=== PATIENT | male | born 1930 | race Caucasian/White ===

== ENCOUNTER → 2016-04-21 | Outpatient (CLI) | payer OTHER ==
[~2016-04-21] MED LIST: ASPI81TA28 PO; CARB25TA12 PO; CHOL100010 PO; CHOL2000 PO; CYAN10005 PO; FOLI1TAB7 PO; GLUCTAB7 PO; LOSA1TAB PO; NITR0.4S UT; OMEP20TA PO; ONDA4TAB10 SL; SIMV80TA2 PO; VENL100T2 PO; VENL150T33 PO
[2016-04-21 17:57] LABS: ALT/SGPT 9 U/L (12-78); BLOOD UREA NITROGEN 28 mg/dl (7-18); BUN/CREATININE RATIO 25.3 (10-20); CALCIUM 8.6 mg/dl (8.5-10.1); CARBON DIOXIDE 29 mmol/L (21-32); CHLORIDE 103 mmol/L (98-107); CHOLESTEROL 137 mg/dl (0-200); GLUCOSE 97 mg/dl (70-99); POTASSIUM 4.3 mmol/L (3.5-5.1); SODIUM 137 mmol/L (136-145)
[2016-04-21 18:00] LABS: ALB/GLOB RATIO 1.1 (0.9-2); ALKALINE PHOSPHATASE 55 U/L (45-117); AST/SGOT 21 U/L (15-37); CHOLESTEROL/HDL RATIO 3.6; HDL CHOLESTEROL 38 mg/dl; LDL CHOLESTEROL CALCULATED 67 mg/dl; TRIGLYCERIDES 158 mg/dl (0-150); VERY LOW DENSITY LIPOPROT CALC 32 mg/dl
== END | disposition home or self-care (01) ==
LOC: C.LABPVFM 07:40
PROVIDERS: ATTEND Family Medicine
DX: E78.5 Hyperlipidemia, unspecified (principal)

== ENCOUNTER 2016-05-19 10:57 | Emergency (ER) | payer OTHER ==
[~2016-05-19] VITALS: Ht 182.9 cm; Wt 90.5 kg
[~2016-05-19 10:57] MED LIST changes: -CHOL2000 PO; -FOLI1TAB7 PO; -GLUCTAB7 PO; -ONDA4TAB10 SL; -VENL150T33 PO
[2016-05-19 11:00] VITALS: TEMP 37.8; Ht 182.9 cm; Wt 90.5 kg
[2016-05-19 11:05] VITALS: O2SAT 96
[2016-05-19] MEDS ORDERED: VENL150T33 PO (11:36)
[2016-05-19] MEDS ORDERED: CHOL2000 PO (11:36)
[2016-05-19] MEDS ORDERED: GLUCTAB7 PO (11:36)
[2016-05-19] MEDS ORDERED: FOLI1TAB7 PO (11:36)
[2016-05-19 12:01] LABS: BASO % 0.1 %; BASO ABS # 0.01 K/uL (0-0.2); COMPLETE YES; EOS % 0.2 %; IG% 0.1 %; MEAN CELL VOLUME 93.2 fL (80-100); MEAN CORPUSCULAR HEMOGLOBIN 30.7 pg (25-34); MEAN CORPUSCULAR HGB CONC 32.9 g/dl (32-36); MEAN PLATELET VOLUME 11.5 fL (7.4-10.4); MONO % 10.6 %; PLATELET COUNT 144 K/uL (130-400); WHITE BLOOD COUNT 9.94 K/uL (4.8-10.8)
[2016-05-19 12:19] LABS: BUN/CREATININE RATIO 21.2 (10-20); CALCIUM 8.7 mg/dl (8.5-10.1); CREATININE 1.3 mg/dl (0.60-1.40); POTASSIUM 3.9 mmol/L (3.5-5.1)
[2016-05-19 12:22] LABS: ALB/GLOB RATIO 1.1 (0.9-2)
[2016-05-19] MEDS ORDERED: SODIUM CHLORIDE 0.9% 1000ML 1,000 ML IV STA (13:31)
[2016-05-19] MEDS ORDERED: ACETAMINOPHEN 500 MG TAB PO STA (13:31)
[2016-05-19] MEDS ORDERED: CARBIDOPA/LEVODOPA 25/100MG TAB PO STA ×2 (13:38→13:40)
[2016-05-19] MEDS ORDERED: ONDANSETRON INJ 2 MG/ML 2 ML VIAL IV STA (13:38)
--- NOTE | 2016-05-19 13:38 | EMERGENCY ROOM VISIT NOTE ---
History Report prepared by [facility]: Marily Marlow Under the Supervision of: Dr. Alfie Arriaza M.D. First contact with patient: 13:00 Chief Complaint: WEAKNESS Stated Complaint: DIZZY Nursing Triage Summary: Decreased mobility History of Present Illness The patient is an 85 year old male who presents to the Emergency Room with complaints of persistent weakness that began yesterday. The patient states that yesterday and this morning he started feeling ill. He notes that he has been nauseated and additionally notes a fever and chills. The patient denies any cough, diarrhea, or runny nose. He notes that today he feels fatigued and has a headache. The patient denies any history of UTIs. The patient's son notes that the patient has a history of Parkinson's Disease, noting that the patient did not take his medication last night or this morning. He states that he has not been able to move his legs today. Source of History: patient, family (son) Onset: yesterday Position: other (global) Quality: other (weakness) Timing: other (persistent) Associated Symptoms: + chills, + fatigue, + fevers, + headache, + nausea, No cough, No diarrhea Review of Systems See HPI for pertinent positives & negatives. A total of 10 systems reviewed and were otherwise negative. Past Medical & Surgical Medical Problems: (1) Angina (2) Hodgson syndrome (3) Hyperlipidemia (4) Parkinsonism Surgical Problems: (1) History of prostate surgery (2) S/P tonsillectomy Family History Heart disease Hypertension Social History Smoking Status: Former Smoker Alcohol Use: occasionally Marital Status: Housing Status: lives alone Occupation Status: retired Current/Historical Medications Scheduled Aspirin (Aspirin Ec), 81 MG PO DAILY Carbidopa/Levodopa (Sinemet 25MG/100MG), 2 TAB PO TID Cholecalciferol (Vitamin D3), 2,000 UNITS PO DAILY Cyanocobalamin (Vitamin B-12), 1,000 MCG PO DAILY Folic Acid (Folvite), 1 MG PO DAILY Klvgzkdtuyi-Jtsepxqfrqq-Upd C- (Glucosamine Chondroitin), 1 TAB PO DAILY Nitroglycerin (Nitrostat), 0.4 MG UT PRN Omeprazole (Omeprazole), 20 MG PO DAILY Ondasetron Odt (Zofran Odt), 4 MG SL Q6H Simvastatin (Zocor), 40 MG PO QPM Venlafaxine Hcl (Venlafaxine Hcl Er), 150 MG PO DAILY Allergies Coded Allergies: Penicillins (Verified Adverse Reaction, Mild, "STRANGE REACTION", 06/24/15) Physical Exam Vital Signs Date Time Temp Pulse Resp B/P Pulse Ox O2 Delivery O2 Flow Rate FiO2 05/19/16 15:06 101 18 128/74 98 05/19/16 14:05 84 05/19/16 13:50 76 20 92 Room Air 05/19/16 13:44 78 20 170/95 97 Room Air 05/19/16 12:40 80 20 161/91 95 Room Air 05/19/16 11:19 77 05/19/16 11:05 96 Room Air 05/19/16 11:00 37.8 88 20 152/87 98 Room Air Physical Exam GENERAL: Patient is a healthy-appearing well-nourished HEAD: Normocephalic atraumatic EYES: Ocular movements intact pupils equal and react to light OROPHARYNX mucous membranes are moist no exudates present no erythema or edema present NECK: Supple no nuchal rigidity CHEST: Good equal expansion LUNGS: Clear and equal to auscultation CARDIAC: Grade 2/6 systolic murmur. ABDOMEN: Soft nontender no guarding BACK: No CVA tenderness EXTREMITIES: No pain upon palpation normal muscle strength in all groups no clubbing cyanosis or edema NEURO: Patient is following commands is answering questions appropriately. Alert and oriented x3 Cranial Nerves 2-12 grossly intact Medical Decision & Procedures ER Provider Diagnostic Interpretation: Radiology results as stated below per my review and radiologist interpretation: CT OF THE HEAD WITHOUT CONTRAST CLINICAL HISTORY: Altered mental status. Dizziness. COMPARISON STUDY: MRI of the brain December 12, [address] January 05, 2016. CT DOSE: 614.27 mGy.cm TECHNIQUE: Helical axial images of the head were obtained without IV contrast. Automated exposure control was utilized for the study. FINDINGS: No acute intracranial hemorrhage, midline shift or mass effect is present. Mild ventricular dilatation is unchanged. White matter hypodensities are unchanged. There are no findings to suggest acute dural sinus thrombosis or acute territorial infarct. No acute intracranial hemorrhage, midline shift or mass effect is present. There are no significant calvarial abnormalities. There is mild mucosal thickening of the ethmoid sinuses. Mastoid air cells are clear. IMPRESSION: No acute intracranial findings. Electronically signed by: Myron Fraga M.D. 05/19/2016 2:48 PM Dictated Date/Time: 05/19/2016 2:46 PM SINGLE VIEW CHEST CLINICAL HISTORY: Generalized weakness. Dizziness. FINDINGS: 2 AP, portable, upright chest radiographs are compared to study dated 06/24/2015. The examination is degraded by portable technique and patient rotation. The heart is mildly enlarged and there is evidence carotid calcification of the thoracic area. There is mild pulmonary vascular congestion. Chronic interstitial thickening is unchanged. There is mild elevation of the right hemidiaphragm. No focal airspace consolidation or large pleural effusion is identified. No pneumothorax is seen. The skeletal structures are osteopenic. Degenerative change is noted in the thoracic spine and shoulders. IMPRESSION: 1. Cardiomegaly with mild pulmonary vascular congestion. 2. No airspace consolidation or large pleural effusion is identified. Electronically signed by: Raghavendra Fernandez M.D. 05/19/2016 2:20 PM Dictated Date/Time: 05/19/2016 2:18 PM The status of this report is Signed. Draft = Not yet reviewed or approved by Radiologist. Signed = Reviewed and approved by Radiologist. Laboratory Results 05/19/16 10:25 Red Blood Count 4.40, Mean Corpuscular Volume 93.2, Mean Corpuscular Hemoglobin 30.7, Mean Corpuscular Hemoglobin Concent 32.9, Mean Platelet Volume 11.5, Neutrophils (%) (Auto) 84.0, Lymphocytes (%) (Auto) 5.0, Monocytes (%) (Auto) 10.6, Eosinophils (%) (Auto) 0.2, Basophils (%) (Auto) 0.1, Neutrophils # (Auto ) 8.35, Lymphocytes # (Auto) 0.50, Monocytes # (Auto) 1.05, Eosinophils # (Auto ) 0.02, Basophils # (Auto) 0.01 05/19/16 10:25 Test 05/19/16 10:25 05/19/16 14:25 05/19/16 15:15 White Blood Count 9.94 K/uL (4.8-10.8) Red Blood Count 4.40 M/uL (4.7-6.1) Hemoglobin 13.5 g/dL (14.0-18.0) Hematocrit 41.0 % (42-52) Mean Corpuscular Volume 93.2 fL (80-100) Mean Corpuscular Hemoglobin 30.7 pg (25-34) Mean Corpuscular Hemoglobin Concent 32.9 g/dl (32-36) Platelet Count 144 K/uL (130-400) Mean Platelet Volume 11.5 fL (7.4-10.4) Neutrophils (%) (Auto) 84.0 % Lymphocytes (%) (Auto) 5.0 % Monocytes (%) (Auto) 10.6 % Eosinophils (%) (Auto) 0.2 % Basophils (%) (Auto) 0.1 % Neutrophils # (Auto) 8.35 K/uL (1.4-6.5) Lymphocytes # (Auto) 0.50 K/uL (1.2-3.4) Monocytes # (Auto) 1.05 K/uL (0.11-0.59) Eosinophils # (Auto) 0.02 K/uL (0-0.5) Basophils # (Auto) 0.01 K/uL (0-0.2) RDW Standard Deviation 48.9 fL (36.4-46.3) RDW Coefficient of Variation 14.5 % (11.5-14.5) Immature Granulocyte % (Auto) 0.1 % Immature Granulocyte # (Auto) 0.01 K/uL (0.00-0.02) Anion Gap 7.0 mmol/L (3-11) Est Creatinine Clear Calc Drug Dose 46.4 ml/min Estimated GFR () 58.1 Estimated GFR (Non- 50.1 BUN/Creatinine Ratio 21.2 (10-20) Calcium Level 8.7 mg/dl (8.5-10.1) Total Bilirubin 0.5 mg/dl (0.2-1) Aspartate Amino Transf (AST/SGOT) 20 U/L (15-37) Alanine Aminotransferase (ALT/SGPT) 23 U/L (12-78) Alkaline Phosphatase 58 U/L (45-117) Total Protein 7.3 gm/dl (6.4-8.2) Albumin 3.8 gm/dl (3.4-5.0) Globulin 3.5 gm/dl (2.5-4.0) Albumin/Globulin Ratio 1.1 (0.9-2) Urine Color YELLOW Urine Appearance CLEAR (CLEAR) Urine pH 5.0 (4.5-7.5) Urine Specific [place] 1.017 (1.000-1.030) Urine Protein 1+ (NEG) Urine Glucose (UA) NEG (NEG) Urine Ketones NEG (NEG) Urine Occult Blood NEG (NEG) Urine Nitrite NEG (NEG) Urine Bilirubin NEG (NEG) Urine Urobilinogen NEG (NEG) Urine Leukocyte Esterase NEG (NEG) Urine WBC (Auto) 1-5 /hpf (0-5) Urine RBC (Auto) 0-4 /hpf (0-4) Urine Hyaline Casts (Auto) 1-5 /lpf (0-5) Urine Epithelial Cells (Auto) 5-10 /lpf (0-5) Urine Bacteria (Auto) NEG (NEG) Influenza Type A Antigen Neg for Influ A (NEG) Influenza Type B Antigen Neg for Influ B (NEG) Labs reviewed by ED physician. Medications Administered Medications (Trade) Dose Ordered Sig/Petty Route Start Time Stop Time Status Last Admin Dose Admin Sodium Chloride (Nss 1000ml) 1,000 ml @ 999 mls/hr Q1H1M STAT IV 05/19/16 13:31 05/19/16 14:31 DC 05/19/16 13:31 999 MLS/HR Acetaminophen (Tylenol Tab) 1,000 mg NOW STAT PO 05/19/16 13:31 05/19/16 13:33 DC 05/19/16 13:40 1,000 MG Albuterol/ Ipratropium (Duoneb) 12 ml ONE ONCE INH 05/19/16 13:45 05/19/16 13:46 DC 05/19/16 13:54 12 ML Ondansetron HCl (Zofran Inj) 4 mg NOW STAT IV 05/19/16 13:38 05/19/16 13:39 DC 05/19/16 13:42 4 MG Carbidopa/Levodopa (Sinemet 25/ 100MG Tab) 2 tab NOW STAT PO 05/19/16 13:40 05/19/16 13:42 DC 05/19/16 13:40 2 TAB Methylprednisolone Sodium Succinate (Solu-Medrol IV) 60 mg NOW STAT IV 05/19/16 14:27 05/19/16 14:28 DC 05/19/16 15:14 60 MG ECG Indication: weakness Rate (beats per minute): 106 Rhythm: sinus tachycardia Findings: ST depression (Anterolateral, diffuse), no acute ischemic change, no ectopy ED Course 1331: Ordered Tylenol Tab 1000 mg PO, Sodium Chloride 1000 ml @ 999 mls/hr IV. 1333: Past medical records reviewed. The patient was evaluated in room B10. A complete history and physical examination was performed. 1338: Ordered Zofran Inj 4 mg IV. 1340: Ordered Carbidopa/Levodopa 2 tab PO. 1345: Ordered Duoneb 12 ml INH. 1427: Ordered Solu-Medrol IV 60 mg IV. 1610: I reevaluated the patient and he is up and ambulating. I discussed the exam findings with him and his father and I discussed the treatment plan. They verbalized complete understanding and agreement. The patient is ready to go home. 1613: Ordered Albuterol 2 puffs INH. Medical Decision Differential diagnosis: Etiologies such as metabolic, infection, hypo/hyperglycemia, electrolyte abnormalities, cardiac sources, intracerebral event, toxicologic, neurologic, as well as others were entertained. This is an 85-year-old male who presents emergency department complaining of generalized weakness. Patient did not take his carbidopa levodopa and has missed multiple doses since last evening. He did not take because he was feeling nauseous. He has normal laboratory work here and has a clear chest x- ray. Serial abdominal examinations were performed on the patient in the emergency department and no tended patient exhibit surgical abdomen or even abdominal tenderness. The patient was given normal saline bolus along with Zofran and Tylenol. He was then given his carbidopa levodopa. He was then ambulated by both nursing as well as myself. The patient at this point wishes to go home. I did recommend an inhaler for home as his pulse ox was 91%. I will note that that is not low enough for admission. He is much improved after breathing treatment and I will continue him on albuterol at home. I also recommended Tylenol and Zofran. Patient and son were in agreement with the treatment plan. Impression Primary Impression: Weakness Scribe Attestation The scribe's documentation has been prepared under my direction and personally reviewed by me in its entirety. I confirm that the note above accurately reflects all work, treatment, procedures, and medical decision making performed by me. Departure Information Dispostion Home / Self-Care Prescriptions Ondasetron Odt (ZOFRAN ODT) 4 Mg Tab 4 MG SL Q6H for Nausea, #6 TAB Prov: Alfie Arriaza MD 05/19/16 Referrals No Doctor, Assigned (PCP) Forms HOME CARE DOCUMENTATION FORM, IMPORTANT VISIT INFORMATION, School Instructions, Work Instructions Patient Instructions ED Fever Control, ED Fever Unconf Cause, [facility] Additional Instructions Use inhaler twice every 6 hours Tylenol 1000 mg for fever You have been examined and treated today on an emergency basis only. This is not a substitute for, or an effort to provide, complete comprehensive medical care. It is impossible to recognize and treat all injuries or illnesses in a single emergency department visit. It is therefore important that you follow up closely with your PCP. Call as soon as possible for an appointment. Thank you for your time and consideration. I look forward to speaking with you again soon. Please don't hesitate to call us if you have any questions.
[2016-05-19] MEDS ORDERED: ALBUT/IPRATROP 3MG/0.5MG NEB 3 ML VIAL INH ONE (13:45)
[2016-05-19 13:50] VITALS: PULSE 76; O2SAT 92
--- NOTE | 2016-05-19 14:21 | DIAGNOSTIC IMAGING REPORT ---
SINGLE VIEW CHEST CLINICAL HISTORY: Generalized weakness. Dizziness. FINDINGS: 2 AP, portable, upright chest radiographs are compared to study dated 06/24/2015. The examination is degraded by portable technique and patient rotation. The heart is mildly enlarged and there is evidence carotid calcification of the thoracic area. There is mild pulmonary vascular congestion. Chronic interstitial thickening is unchanged. There is mild elevation of the right hemidiaphragm. No focal airspace consolidation or large pleural effusion is identified. No pneumothorax is seen. The skeletal structures are osteopenic. Degenerative change is noted in the thoracic spine and shoulders. IMPRESSION: 1. Cardiomegaly with mild pulmonary vascular congestion. 2. No airspace consolidation or large pleural effusion is identified. Electronically signed by: Raghavendra Fernandez M.D. 05/19/2016 2:20 PM Dictated Date/Time: 05/19/2016 2:18 PM
[2016-05-19] MEDS ORDERED: METHYLPREDNISOLONE 125 MG VIAL IV STA (14:27)
--- NOTE | 2016-05-19 14:50 | DIAGNOSTIC IMAGING REPORT ---
CT OF THE HEAD WITHOUT CONTRAST CLINICAL HISTORY: Altered mental status. Dizziness. COMPARISON STUDY: MRI of the brain December 12, [address] January 05, 2016. CT DOSE: 614.27 mGy.cm TECHNIQUE: Helical axial images of the head were obtained without IV contrast. Automated exposure control was utilized for the study. FINDINGS: No acute intracranial hemorrhage, midline shift or mass effect is present. Mild ventricular dilatation is unchanged. White matter hypodensities are unchanged. There are no findings to suggest acute dural sinus thrombosis or acute territorial infarct. No acute intracranial hemorrhage, midline shift or mass effect is present. There are no significant calvarial abnormalities. There is mild mucosal thickening of the ethmoid sinuses. Mastoid air cells are clear. IMPRESSION: No acute intracranial findings. Electronically signed by: Myron Fraga M.D. 05/19/2016 2:48 PM Dictated Date/Time: 05/19/2016 2:46 PM
[2016-05-19 14:57] LABS: URINE APPEARANCE CLEAR (CLEAR); URINE BILIRUBIN NEG (NEG); URINE COLOR YELLOW; URINE NITRITE NEG (NEG); URINE SPECIFIC GRAVITY 1.017 (1.000-1.030); UROBILINOGEN NEG (NEG); ZZUR CULT IF INDIC CLEAN CATCH NO
[2016-05-19 14:59] LABS: MANUAL MICROSCOPIC REQUIRED? NO; REVIEW REQ? NO
[2016-05-19] MEDS ORDERED: ALBUTEROL HFA 8 GM INHALER INH STA (16:13)
[2016-05-19] MEDS ORDERED: ONDA4TAB10 SL (16:15)
[2016-05-19 16:45] VITALS: BP 102/65; PULSE 94; O2SAT 94
[2016-05-19 17:31] LABS: INFLUENZA A PCR Neg for Influ A (NEG); INFLUENZA B PCR Neg for Influ B (NEG)
== END 2016-05-19 16:45 | disposition home or self-care (01) ==
LOC: EDBD 10:57 → C.EDB 10:59
DX: R53.1 Weakness (principal); R00.0 Tachycardia, unspecified; E78.5 Hyperlipidemia, unspecified; G20 Parkinson's disease; Z98.890 Other specified postprocedural states; Z87.891 Personal history of nicotine dependence; Z79.82 Long term (current) use of aspirin; Z79.899 Other long term (current) drug therapy; Z88.0 Allergy status to penicillin; Z82.49 Family history of ischemic heart disease and other diseases of the circulatory system

== ENCOUNTER → 2016-06-27 | Outpatient (CLI) | payer OTHER ==
[~2016-06-27] MED LIST changes: -CHOL100010 PO; +CHOL2000 PO; +FOLI1TAB7 PO; +GLUCTAB7 PO; -LOSA1TAB PO; +ONDA4TAB10 SL; -VENL100T2 PO; +VENL150T33 PO
== END | disposition home or self-care (01) ==
LOC: C.LABPVFM 14:00
PROVIDERS: ATTEND Family Medicine
DX: R42 Dizziness and giddiness (principal)

== ENCOUNTER → 2016-11-10 | Outpatient (CLI) | payer OTHER ==
--- NOTE | 2016-11-10 12:01 | DIAGNOSTIC IMAGING REPORT ---
RIGHT KNEE 1 OR 2 VIEWS ROUTINE CLINICAL HISTORY: Right knee pain following injury. COMPARISON: None FINDINGS: Alignment of the right knee is anatomic. There is no acute fracture or osseous lesion. There is no joint effusion. Mild osteophytosis of the right knee is noted. There is extensive vascular calcification. IMPRESSION: 1. No acute fracture or joint effusion of the right knee. 2. Mild osteoarthritis of the right knee. 3. Extensive vascular calcification. Electronically signed by: Myron Fraga M.D. 11/10/2016 12:00 PM Dictated Date/Time: 11/10/2016 11:59 AM
== END | disposition home or self-care (01) ==
LOC: C.RADPV 11:37
PROVIDERS: ATTEND Family Medicine Adult Medicine
DX: S89.90XA Unspecified injury of unspecified lower leg, initial encounter (principal); X58.XXXA Exposure to other specified factors, initial encounter; M61.06 Myositis ossificans traumatica, lower leg

== ENCOUNTER → 2017-02-26 | Outpatient (CLI) | payer OTHER ==
[~2017-02-26] MED LIST changes: -FOLI1TAB7 PO; +FOLI1TAB8 PO; -ONDA4TAB10 SL
== END | disposition home or self-care (01) ==
LOC: C.PATHSPEC 17:20
PROVIDERS: ATTEND Plastic Surgery
DX: L98.9 Disorder of the skin and subcutaneous tissue, unspecified (principal)

== ENCOUNTER 2017-04-14 17:23 | Emergency (ER) | payer OTHER ==
[~2017-04-14] VITALS: Ht 182.9 cm; Wt 88.5 kg
[2017-04-14 17:33] VITALS: TEMP 36.3; Ht 182.9 cm; Wt 88.5 kg
[2017-04-14] MEDS ORDERED: LIDOCAINE/EPINEPH/TETRACAINE 1 EA SYR EXT STA (17:49)
[2017-04-14] MEDS ORDERED: LIDOCAINE/EPINEPH/TETRACAINE 1 EA SYR ONE (17:50)
--- NOTE | 2017-04-14 18:59 | DIAGNOSTIC IMAGING REPORT ---
CT SCAN OF THE BRAIN WITHOUT IV CONTRAST CLINICAL HISTORY: Fall with head injury. COMPARISON STUDY: CT of the brain dated 05/19/2016. TECHNIQUE: Unenhanced axial CT scan of the brain is performed from the vertex to the skull base. A dose lowering technique was utilized adhering to the principles of ALARA. CT DOSE: 1027.88 mGy.cm FINDINGS: Brain parenchyma: There are age-related involutional changes noting mild subcortical and periventricular microangiopathic change. There is no hemorrhage, mass effect, or evidence of acute territorial ischemia by CT criteria. 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 Jasso-white matter is preserved. No extra-axial fluid collection is seen. Ventricles, sulci, cisterns: Prominent secondary to involutional change. Intracranial vasculature: There is atherosclerotic calcification of the cavernous carotid and vertebral arteries. Calvarium: The skeletal structures are osteopenic. There is no depressed calvarial fracture. Soft tissues: There is a left frontal scalp hematoma. Sinuses and mastoids: The visualized paranasal sinuses are clear. The mastoid air cells are well pneumatized. Orbits: The bony orbits are grossly intact. There are bilateral ocular lens implants. IMPRESSION: 1. There is no hemorrhage, mass effect, or evidence of acute territorial ischemia by CT criteria. 2. Left frontal scalp hematoma. Electronically signed by: Raghavendra Fernandez M.D. 04/14/2017 6:58 PM Dictated Date/Time: 04/14/2017 6:55 PM
--- NOTE | 2017-04-14 19:03 | DIAGNOSTIC IMAGING REPORT ---
CT SCAN OF THE CERVICAL SPINE CLINICAL HISTORY: Fall. COMPARISON STUDY: CT scan of the cervical spine dated 08/29/2012. TECHNIQUE: CT scan of the cervical spine is performed from the skull base to the upper thoracic spine. Images are reviewed in the axial, sagittal, and coronal planes. IV contrast was not administered for this examination. A dose lowering technique was utilized adhering to the principles of ALARA. CT DOSE: Reported separately under the concurrently performed CT scan of the brain. FINDINGS: Skeletal structures: The skeletal structures are osteopenic. There is no evidence of fracture or subluxation involving the cervical spine. Vertebral body height is maintained. There is straightening of the cervical lordosis with reversal centered at C4. There is minimal anterolisthesis at C2-C3 and C3-C4. Alignment is otherwise preserved. Tiny anterior osteophytes are seen throughout. The odontoid process and lateral masses are intact. The atlantoaxial articulation is preserved noting mild productive degenerative change. The spinous processes appear intact. There is moderate multilevel cervical spondylosis. Uncovertebral and facet arthropathy contribute sterile foraminal narrowing at several levels. Intervertebral discs: There is moderate disc space narrowing at C5-C6 and C6-C7. Mild disc space narrowing is seen at the remaining cervical levels. Central canal: Posterior disc osteophyte complexes at C3-C4, C5-C6, and C6-C7 likely contribute to acquired compromise of the central canal. Soft tissues: The prevertebral and paraspinous soft tissues are within normal limits. There is atherosclerotic calcification of the carotid bulbs. Calvarium: The visualized calvarium at the skull base appears intact. Brain parenchyma: Partially visualized brain parenchyma the skull base is within normal limits noting age-related involutional change. Sinuses and mastoids: The visualized paranasal sinuses are clear. The mastoid air cells are well pneumatized. Lung apices: Clear as visualized. IMPRESSION: 1. There is no evidence of fracture or subluxation involving the cervical spine. 2. Osteopenia and spondylotic change as above. Electronically signed by: Raghavendra Fernandez M.D. 04/14/2017 7:02 PM Dictated Date/Time: 04/14/2017 6:55 PM
[2017-04-14] MEDS ORDERED: DIPHTHERIA/TETANUS/PERTUSSIS 0.5 ML SYR/VIAL IM. ONE (19:15)
--- NOTE | 2017-04-14 19:21 | EMERGENCY ROOM VISIT NOTE ---
History Report prepared by Scribjeremy: Rob[facility] Under the Supervision of: Dr. Alfie Weiner D.O. First contact with patient: 17:33 Chief Complaint: FALL Stated Complaint: FALL, HEAD INJURY History of Present Illness The patient is a 86 year old male who presents to the Emergency Room with complaints of a head injury s/p fall occurring just prior to arrival. The patient has a history of Parkinson's. He states that he went out to take a walk , and fell onto a hard surface. He states that he fell and struck the left side of his head. The patient states that his Parkinson's often causes him to feel like he is going downhill and is unable to stop, and he states that this is what happened to him today. He lost consciousness during the fall, but is unsure if he passed out prior to falling or after hitting the ground. The patient denies chest pain or neck pain. He states that he felt normal today prior to the fall. Source of History: patient Onset: Just prior to arrival Position: head (left side) Quality: other (head injury) Timing: other (episode) Associated Symptoms: + LOC, No neck pain, No chest pain Review of Systems See HPI for pertinent positives & negatives. A total of 10 systems reviewed and were otherwise negative. Past Medical & Surgical Medical Problems: (1) Angina (2) Hodgson syndrome (3) Hyperlipidemia (4) Parkinsonism Surgical Problems: (1) History of prostate surgery (2) S/P tonsillectomy Family History Heart disease Hypertension Social History Smoking Status: Former Smoker Alcohol Use: occasionally Marital Status: Housing Status: lives alone Occupation Status: retired Current/Historical Medications Scheduled Aspirin (Aspirin Ec), 81 MG PO DAILY Carbidopa/Levodopa (Sinemet 25MG/100MG), 2 TAB PO QID Cholecalciferol (Vitamin D3), 2,000 UNITS PO DAILY Cyanocobalamin (Vitamin B-12), 1,000 MCG PO DAILY Folic Acid (Folvite), 1 MG PO DAILY Nitroglycerin (Nitrostat), 0.4 MG UT PRN Omeprazole (Omeprazole), 20 MG PO DAILY Simvastatin (Zocor), 40 MG PO QPM Allergies Coded Allergies: Penicillins (Verified Adverse Reaction, Mild, "STRANGE REACTION", 04/14/17) Physical Exam Vital Signs Date Time Temp Pulse Resp B/P (MAP) Pulse Ox O2 Delivery O2 Flow Rate FiO2 04/14/17 17:33 36.3 69 18 192/113 92 Room Air Physical Exam CONSTITUTIONAL/VITAL SIGNS: Reviewed / noted above. GENERAL: Non-toxic in appearance. INTEGUMENTARY: Warm, dry, and [place]. HEAD: Normocephalic. 3 cm laceration to the left supraorbital area. No contamination. Minimal bleeding. EYES: without scleral icterus or trauma. ENT/OROPHARYNX: clear and moist. LYMPHADENOPATHY/NECK: Is supple without lymphadenopathy or meningismus. RESPIRATORY: Lungs clear and equal. CARDIOVASCULAR: Regular rate and rhythm. GI/ABDOMEN: Soft and nontender. No organomegaly or pulsatile mass. No rebound or guarding. Normal bowel sounds. EXTREMITIES: Warm and well perfused. BACK: No CVA tenderness. NEUROLOGICAL: Intact without focal deficits. PSYCHIATRIC: normal affect. MUSCULOSKELETAL: Normally developed with good muscle tone. Medical Decision & Procedures ER Provider Diagnostic Interpretation: Radiology results as stated below per my review and radiologist interpretation: CT SCAN OF THE BRAIN WITHOUT IV CONTRAST FINDINGS: Brain parenchyma: There are age-related involutional changes noting mild subcortical and periventricular microangiopathic change. There is no hemorrhage, mass effect, or evidence of acute territorial ischemia by CT criteria. 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 Jasso-white matter is preserved. No extra-axial fluid collection is seen. Ventricles, sulci, cisterns: Prominent secondary to involutional change. Intracranial vasculature: There is atherosclerotic calcification of the cavernous carotid and vertebral arteries. Calvarium: The skeletal structures are osteopenic. There is no depressed calvarial fracture. Soft tissues: There is a left frontal scalp hematoma. Sinuses and mastoids: The visualized paranasal sinuses are clear. The mastoid air cells are well pneumatized. Orbits: The bony orbits are grossly intact. There are bilateral ocular lens implants. IMPRESSION: 1. There is no hemorrhage, mass effect, or evidence of acute territorial ischemia by CT criteria. 2. Left frontal scalp hematoma. Electronically signed by: Raghavendra Fernandez M.D. CT SCAN OF THE CERVICAL SPINE FINDINGS: Skeletal structures: The skeletal structures are osteopenic. There is no evidence of fracture or subluxation involving the cervical spine. Vertebral body height is maintained. There is straightening of the cervical lordosis with reversal centered at C4. There is minimal anterolisthesis at C2-C3 and C3-C4. Alignment is otherwise preserved. Tiny anterior osteophytes are seen throughout. The odontoid process and lateral masses are intact. The atlantoaxial articulation is preserved noting mild productive degenerative change. The spinous processes appear intact. There is moderate multilevel cervical spondylosis. Uncovertebral and facet arthropathy contribute sterile foraminal narrowing at several levels. Intervertebral discs: There is moderate disc space narrowing at C5-C6 and C6-C7. Mild disc space narrowing is seen at the remaining cervical levels. Central canal: Posterior disc osteophyte complexes at C3-C4, C5-C6, and C6-C7 likely contribute to acquired compromise of the central canal. Soft tissues: The prevertebral and paraspinous soft tissues are within normal limits. There is atherosclerotic calcification of the carotid bulbs. Calvarium: The visualized calvarium at the skull base appears intact. Brain parenchyma: Partially visualized brain parenchyma the skull base is within normal limits noting age-related involutional change. Sinuses and mastoids: The visualized paranasal sinuses are clear. The mastoid air cells are well pneumatized. Lung apices: Clear as visualized. IMPRESSION: 1. There is no evidence of fracture or subluxation involving the cervical spine. 2. Osteopenia and spondylotic change as above. Electronically signed by: Raghavendra Fernandez M.D. 04/14/2017 7:02 PM Medications Administered Medications (Trade) Dose Ordered Sig/Petty Route Start Time Stop Time Status Last Admin Dose Admin Tetracaine/ Epinephrine/ Lidocaine (L.e.t. Gel 4%/ 1:100/0.5%) 1 ea NOW STAT EXT 04/14/17 17:49 04/14/17 17:51 DC 04/14/17 17:49 1 EA Procedure Laceration repair: Location: left supraorbital area Total length: 3 cm Complexity: simple Verbal consent was obtained after the risks and benefits were explained, including but not limited to bleeding, scarring, infection, pain, and bone/joint /nerve damage. At this time, the risks of the procedure are less than the risks of NOT performing the procedure. A time out was taken and the correct patient and site identified. The skin was prepped with betadine. The target area was anesthetized with L.E.T. Gel. Copious irrigation was performed using saline. The skin was re-prepped with betadine and a sterile field set. The wound was explored for foreign bodies and none found. Examination revealed no injury to deep structures such as tendons, bone, or significant blood vessels. Debridement was not performed. The wound edges were approximated using 3, 4-0 simple interrupted nylon sutures. Hemostasis and excellent approximation was achieved. Antibacterial ointment and a sterile dressing applied. Detailed wound care instructions and signs and symptoms of infection reviewed with the patient. No complications and the patient tolerated the procedure well. ED Course 1742: Previous medical records were reviewed. The patient was evaluated in room C9. A complete history and physical examination was performed. 1748: Ordered L.E.T. Gel 4%/1:100/0.5% EXT. 1850: I conducted the laceration repair. See the procedure note for details. 1911: On reevaluation, the patient is resting comfortably. I discussed the results and findings with the patient. He verbalized agreement of the treatment plan. The patient was discharged home. Medical Decision Differential includes close head injury, intracranial bleed, facial trauma, cervical spine trauma, chest and thoracic trauma, abdominal and intra-abdominal trauma, spine neurologic trauma, extremity trauma. This is an 86-year-old male who presents to the ED with a chief complaint of a fall and laceration of the face. The patient states that he has a history of Parkinson's disease. He was out walking in the nice weather and started feeling as though he was going downhill. He states that this happens on occasion with his Parkinson's. He began walking quickly and then lost his balance and fell forward onto his face. Denies other injuries. He was able to get up after this. He came to the hospital for evaluation. He does have a laceration above the left eye region. Denies loss of consciousness. Exam reveals a 3 cm laceration in the left supraorbital area with no contamination and minimal bleeding. There is also a 1 cm laceration over the bridge of the nose and some abrasions to the left maxillary region. His tetanus is not up-to- date. He was given a tetanus here today. The laceration was repaired. A small amount of Dermabond was applied over the nasal laceration for approximation. CT scan of the brain and cervical spine did not show acute intracranial or bony injury. The patient was told the results. He is felt to be stable for discharge. Medication Reconcilliation Current Medication List: was personally reviewed by me Blood Pressure Screening Patient's blood pressure: Elevated blood pressure Blood pressure disposition: Referred to PCP Impression Primary Impression: Fall Additional Impression: Face lacerations Scribe Attestation The scribe's documentation has been prepared under my direction and personally reviewed by me in its entirety. I confirm that the note above accurately reflects all work, treatment, procedures, and medical decision making performed by me. Departure Information Dispostion Home / Self-Care Referrals No Doctor, Assigned (PCP) Patient Instructions My [facility] Additional Instructions Have sutures removed in 10 days here or at your doctors office. Return for any concerns. Watch for infection. Problem Qualifiers
[2017-04-14 20:17] VITALS: BP 179/89; PULSE 68; O2SAT 93
== END 2017-04-14 20:19 | disposition home or self-care (01) ==
LOC: EDBD 17:23 → C.EDC 17:28
DX: S01.81XA Laceration without foreign body of other part of head, initial encounter (principal); W01.10XA Fall on same level from slipping, tripping and stumbling with subsequent striking against unspecified object, initial encounter; G20 Parkinson's disease; E78.5 Hyperlipidemia, unspecified; K22.70 Barrett's esophagus without dysplasia; Z82.49 Family history of ischemic heart disease and other diseases of the circulatory system; Z87.891 Personal history of nicotine dependence; Z79.82 Long term (current) use of aspirin; Z79.899 Other long term (current) drug therapy; Z88.0 Allergy status to penicillin; Z23 Encounter for immunization

== ENCOUNTER → 2017-09-09 | Outpatient (CLI) | payer OTHER ==
[~2017-09-09] MED LIST changes: -GLUCTAB7 PO; -VENL150T33 PO
[2017-09-09 12:51] LABS: BASO % 0.4 %; BASO ABS # 0.04 K/uL (0-0.2); EOS % 2.9 %; EOS ABS # 0.27 K/uL (0-0.5); HEMATOCRIT 39.8 % (42-52); HEMOGLOBIN 13.2 g/dL (14.0-18.0); IG# 0.02 K/uL (0.00-0.02); LYMPH % 15.6 %; LYMPH ABS # 1.45 K/uL (1.2-3.4); MEAN CELL VOLUME 93.2 fL (80-100); MEAN CORPUSCULAR HEMOGLOBIN 30.9 pg (25-34); MEAN CORPUSCULAR HGB CONC 33.2 g/dl (32-36); MEAN PLATELET VOLUME 10.8 fL (7.4-10.4); MONO % 8.9 %; MONO ABS # 0.83 K/uL (0.11-0.59); NEUT ABS # 6.69 K/uL (1.4-6.5); PLATELET COUNT 188 K/uL (130-400); RED CELL DISTRIBUTION WIDTH CV 13.9 % (11.5-14.5); RED CELL DISTRIBUTION WIDTH SD 47.3 fL (36.4-46.3)
[2017-09-09 13:21] LABS: ALBUMIN 3.7 gm/dl (3.4-5.0); ALKALINE PHOSPHATASE 56 U/L (45-117); ALT/SGPT 9 U/L (12-78); AST/SGOT 14 U/L (15-37); BLOOD UREA NITROGEN 26 mg/dl (7-18); CALCIUM 8.3 mg/dl (8.5-10.1); CARBON DIOXIDE 26 mmol/L (21-32); CHOLESTEROL 132 mg/dl (0-200); GLUCOSE 96 mg/dl (70-99); LDL CHOLESTEROL CALCULATED 63 mg/dl; POTASSIUM 3.9 mmol/L (3.5-5.1); SODIUM 139 mmol/L (136-145); TOTAL PROTEIN 6.9 gm/dl (6.4-8.2)
== END | disposition home or self-care (01) ==
LOC: C.LABPVFM 09:26
PROVIDERS: ATTEND Family Medicine
DX: E78.5 Hyperlipidemia, unspecified (principal); I10 Essential (primary) hypertension; D63.8 Anemia in other chronic diseases classified elsewhere; R32 Unspecified urinary incontinence

== ENCOUNTER → 2017-09-10 | Outpatient (CLI) | payer OTHER ==
--- NOTE | 2017-09-10 16:26 | DIAGNOSTIC IMAGING REPORT ---
L FOOT MIN 3 VIEWS ROUTINE CLINICAL HISTORY: G20 pain COMPARISON: None. DISCUSSION: Generalized degenerative change throughout the osseous structures of the ankle as well as foot. This is most significant at the first metatarsophalangeal joint. No evidence for fracture or dislocation. No abnormal depressed reaction. There is no evidence for soft tissue swelling. IMPRESSION: 1. Generalized degenerative change. 2. This is most significant at the first metatarsophalangeal joint. 3. No acute posttraumatic abnormality. The above report was generated using voice recognition software. It may contain grammatical, syntax or spelling errors. Electronically signed by: J Carlos Wall M.D. 09/10/2017 4:25 PM Dictated Date/Time: 09/10/2017 4:24 PM
== END | disposition home or self-care (01) ==
LOC: C.RADPV 16:05
PROVIDERS: ATTEND Family Medicine
DX: G20 Parkinson's disease (principal)

== ENCOUNTER 2019-07-19 17:35 | Inpatient (IN) ==
[2019-07-19] MEDS ORDERED: SODIUM CHLORIDE 0.9% 1000ML 1,000 ML IV SCH (18:15)
[2019-07-19 18:28] LABS: Basophils # (auto) 0.02 K/uL (0-0.2); Basophils % (auto) 0.2 %; Hematocrit (blood only) 40.2 % (42-52); Hemoglobin 13.2 g/dL (14.0-18.0); Immature Granulocytes # (auto) 0.01 K/uL (0.00-0.02); Immature Granulocytes % (auto) 0.1 %; Lymphocytes # (auto) 0.65 K/uL (1.2-3.4); Lymphocytes % (auto) 7.4 %; Mean Corpuscular Hemoglobin 30.3 pg (25-34); Mean Corpuscular Hgb Conc 32.8 g/dL (32-36); Mean Corpuscular Volume 92.4 fL (80-100); Mean Platelet Volume 10.1 fL (7.4-10.4); Monocytes # (auto) 1.57 K/uL (0.11-0.59); Monocytes % (auto) 17.9 %; Neutrophils # (auto) 6.54 K/uL (1.4-6.5); Neutrophils % (auto) 74.4 %; Platelet Count 164 K/uL (130-400); RDW Coefficient of Variation 14.9 % (11.5-14.5); RDW Standard Deviation 50.4 fL (36.4-46.3); Red Blood Count 4.35 M/uL (4.7-6.1); White Blood Count 8.79 K/uL (4.8-10.8)
--- NOTE | 2019-07-19 18:34 | XRay Report ---
XR chest 1V portable HISTORY: Atypical Chest Pain COMPARISON: Chest 01/12/2019. FINDINGS: No pneumothorax. No pleural effusions. The cardiac silhouette remains top normal in size. T here are patchy hazy densities within the lung bases, left greater than right. The upper lung zones r emain clear. No evidence for pulmonary edema. IMPRESSION: Patchy hazy density within the lung bases, left greater than right. This may represent a pneumonia an d could be secondary to a viral process. ACT 112: Negative or not required by law. Electronically signed by: Musa Meléndez M.D. 07/19/2019 6:33 PM
--- NOTE | 2019-07-19 18:35 | Emergency Department Note ---
History of Present Illness General Chief complaint: Illness Stated complaint: UTI - LOST MOBILITY - WEAKNESS - LOST OF APPETITE Time Seen by Provider: 07/19/19 18:01 Source: patient Mode of arrival: wheelchair Limitations: no limitations History of Present Illness Provider complaint: Generalized weakness This is an 88-year-old male who presents to the ED with a chief complaint of generalized weakness since Thursday. He has a history of Parkinson's disease as well as urinary tract infections. The family was worried about UTI. He is also had a decreased appetite with decreased p.o. intake. He is normally ambulatory but has not been ambulatory since Thursday according to the son, who takes care of him. The patient denies any chest pains or shortness of breath. He denies any abdominal pains, palpitations or fevers or recent illness. No headaches. Symptoms are moderate. Home Medications Home Medications Medication Instructions Recorded Confirmed Type aspirin 81 mg tablet,delayed 81 mg PO DAILY@1300 tab 08/09/18 07/19/19 History release cyanocobalamin (vitamin B-12) 1,000 mcg PO DAILY@1300 #30 tab 08/09/18 07/19/19 History 1,000 mcg tablet folic acid 1 mg tablet 1 mg PO DAILY@1300 #30 tab 08/09/18 07/19/19 History nitroglycerin 0.4 mg sublingual 0.4 mg SL Q5M PRN tab 12/31/18 07/19/19 History tablet cholecalciferol (vitamin D3) 25 1,000 units PO DAILY@1300 01/04/19 07/19/19 History mcg (1,000 unit) capsule donepezil 5 mg tablet 5 mg PO QAM 30 Days #30 tab 02/28/19 07/19/19 Rx venlafaxine 150 mg 150 mg PO DAILY@1300 #90 cap 04/13/19 07/19/19 Rx capsule,extended release 24 hr hydrochlorothiazide 12.5 mg tablet 12.5 mg PO QAM #30 tab 04/28/19 07/19/19 Rx carbidopa 25 mg-levodopa 100 mg 2 tab PO QID 30 Days #240 tab 06/07/19 07/19/19 Rx tablet trospium 60 mg capsule,extended 60 mg PO DAILY #90 cap 06/28/19 07/19/19 Rx release 24 hr polyethylene glycol 3350 17 17 gm PO DAILY PRN #119 gm 05/20/20 05/26/20 Rx gram/dose oral powder ciprofloxacin HCl 500 mg tablet 500 mg PO BID #14 tab 07/19/19 07/19/19 Rx omeprazole 20 mg PO DAILY 07/19/19 07/19/19 History Allergies Allergy/AdvReac Type Severity Reaction Status Date / Time Penicillins AdvReac Mild "STRANGE Verified 07/19/19 19:31 REACTION" Past Med/Surg History Medical History Abnormal EKG (Acute) Allergic rhinitis (Acute) Anemia (Acute) Anemia of chronic disease (Acute) Angina (Chronic 08/29/12) Arteriosclerosis of coronary artery (Acute) Hodgson's esophagus (Acute) Constipation (Chronic) Constipation (Acute) Depression (Acute) Dizziness, nonspecific (Acute) Elevated serum homocysteine level (Acute) Encounter for long-term (current) use of medications (Acute) Episodic mood disorder (Acute) Fall (Acute) Festinating gait (Acute) Foot drop, right (Acute) Foot pain, left (Acute) Gait disturbance (Acute) Gastroesophageal reflux disease (Acute) H/O hydrocele Hammer toe (Acute) Hearing loss (Acute) Hyperkeratosis (Acute) Hyperlipidemia (Acute 08/29/12) Hyperlipidemia (Chronic) Hypertension (Chronic) Incontinence (Acute) Insomnia (Acute) Lumbar spondylosis (Acute) Malignant neoplasm of prostate (Chronic) Memory loss (Acute) Mitral insufficiency (Acute) Muscle weakness (generalized) (Acute) Neoplasm of uncertain behavior of skin (Acute) Orthostatic hypotension (Acute) Orthostatic hypotension (Acute) Parkinsonism (Chronic 08/29/12) Parkinsons disease (Chronic) Pre-ulcerative calluses (Acute) Severe recurrent depression with psychosis (Acute) Tremor (Acute) Urinary incontinence (Chronic) Urinary symptom or sign (Acute) Urinary urgency (Acute) 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) Vitamin D deficiency (Chronic) Weakness generalized (Acute) Surgical History H/O colonoscopy with polypectomy H/O prostatectomy History of tonsillectomy S/P repair of hydrocele Family History Grandmother (Paternal) Colorectal cancer Uncle Colorectal cancer Father Congestive heart failure Cardiac disorder Hypertension Myocardial infarction Denies family history of Ovarian cancer Prostate cancer Breast cancer Social History Preferred Language: [place] marital status: / current occupational status: retired Feels Safe at Home: Yes Smoking Status: Former smoker Hx Alcohol Use: Yes Alcohol Intake Frequency: Holidays/Special Occasions Hx Substance Use: No Seatbelt Use: always Review of Systems A total of 10 systems reviewed and were otherwise negative Physical Exam Vital Signs Vital Signs - 24 hr 07/19/19 17:44 07/19/19 18:00 07/19/19 18:15 Temperature 36.7 C Temperature Source Oral Pulse Rate 143 H Pulse Rate [Apical] 155 H Pulse Rate from SpO2 Sensor 126 H Respiratory Rate 20 20 25 H Respiratory Effort / Characteristics Non-Labored Spontaneous Respiratory Depth Normal Blood Pressure 85/49 L 102/80 Blood Pressure [Right Arm] 118/84 Blood Pressure Mean 61 87 Blood Pressure Mean [Right Arm] 95 Blood Pressure Position Sitting Pulse Oximetry 92 95 94 Oxygen Delivery Method Room Air Room Air Sepsis Recent Fever Within 48 Hours No Sepsis Action Taken by Nursing No Action Required 07/19/19 18:23 07/19/19 18:30 07/19/19 18:45 Temperature Temperature Source Pulse Rate 138 H 136 H Pulse Rate [Apical] Pulse Rate from SpO2 Sensor 136 H 130 H Respiratory Rate 18 23 Respiratory Effort / Characteristics Respiratory Depth Blood Pressure 98/83 L 118/94 Blood Pressure [Right Arm] Blood Pressure Mean 86 109 Blood Pressure Mean [Right Arm] Blood Pressure Position Pulse Oximetry 96 86 L 95 Oxygen Delivery Method Room Air Room Air Sepsis Recent Fever Within 48 Hours Sepsis Action Taken by Nursing 07/19/19 19:00 07/19/19 19:08 07/19/19 19:57 Temperature Temperature Source Pulse Rate 117 H 128 H 131 H Pulse Rate [Apical] Pulse Rate from SpO2 Sensor 127 H 131 H 134 H Respiratory Rate 29 H 32 H 18 Respiratory Effort / Characteristics Respiratory Depth Blood Pressure 106/76 95/68 L 120/81 Blood Pressure [Right Arm] Blood Pressure Mean 84 72 95 Blood Pressure Mean [Right Arm] Blood Pressure Position Pulse Oximetry 92 95 93 Oxygen Delivery Method Room Air Room Air Room Air Sepsis Recent Fever Within 48 Hours Sepsis Action Taken by Nursing 07/19/19 20:00 07/19/19 20:02 Temperature Temperature Source Pulse Rate 126 H 136 H Pulse Rate [Apical] Pulse Rate from SpO2 Sensor 96 H Respiratory Rate 28 H Respiratory Effort / Characteristics Respiratory Depth Blood Pressure 109/87 109/87 Blood Pressure [Right Arm] Blood Pressure Mean 92 Blood Pressure Mean [Right Arm] Blood Pressure Position Pulse Oximetry 92 Oxygen Delivery Method Room Air Sepsis Recent Fever Within 48 Hours Sepsis Action Taken by Nursing CONSTITUTIONAL/VITAL SIGNS: Reviewed / noted above. GENERAL: Non-toxic in appearance. INTEGUMENTARY: Warm, dry, and [place]. HEAD: Normocephalic. EYES: without scleral icterus or trauma. ENT/OROPHARYNX: clear and moist. LYMPHADENOPATHY/NECK: Is supple without lymphadenopathy or meningismus. RESPIRATORY: Lungs clear and equal. CARDIOVASCULAR: Tachycardic rate and slightly irregular rhythm. GI/ABDOMEN: Soft and nontender. No organomegaly or pulsatile mass. No rebound or guarding. Normal bowel sounds. EXTREMITIES: Warm and well perfused. BACK: No CVA tenderness. NEUROLOGICAL: Intact without focal deficits. PSYCHIATRIC: normal affect. MUSCULOSKELETAL: Normally developed with good muscle tone. TRIAGE NURSING DOCUMENTATION REVIEWED. Course Administered Medications Levofloxacin/Dextrose (Levaquin/D5w) 750 mg in 150 mls @ 100 mls/hr IV Q24H [facility] Stop: 07/21/19 19:14 Last Admin: 07/19/19 20:02 Dose: 100 mls/hr Documented by: [id number] Sodium Chloride (Nss 1000ml) 1,000 mls @ 999 mls/hr IV .Q1H1M ONE Stop: 07/19/19 20:45 Last Admin: 07/19/19 20:02 Dose: 999 mls/hr Documented by: [id number] Metoprolol Tartrate (Lopressor) 5 mg IV Q5M PRN PRN Reason: Tachycardia Stop: 08/18/19 18:58 Last Admin: 07/19/19 20:02 Dose: 5 mg Documented by: [id number] Discontinued Medications Sodium Chloride (Nss 1000ml) 1,000 mls @ 999 mls/hr IV .Q1H1M [facility] Stop: 07/19/19 19:15 Last Infusion: 07/19/19 19:22 Dose: 0 mls/hr Documented by: [id number] Admin: 07/19/19 18:18 Dose: 999 mls/hr Documented by: [id number] Critical Care Time Critical Care Time: Yes Total Critical Care Time: 35 I have personally spent 305minutes of critical care time in the direct management of this patient. This includes bedside care, interpretation of di agnostic studies, and testing, discussion with consultants, patient, and family members, and other required patient management activities. This 35 minutes is in excess of all separately billable procedures. Medical Decision Making Differential Diagnosis Differential includes acute coronary syndrome, myocardial infarction, CVA, TIA, anemia, infection, pneumonia, UTI, pyelonephritis, poor nutrition, dehydration, electrolyte disturbance,hypoglycemia. Medical Records Attestation: I reviewed the patient's medical records. Home Medications Current Medication List: was personally reviewed by me Laboratory Data Attestation: I reviewed the patient's lab results. Result diagrams: 07/19/19 18:15 07/19/19 18:15 Lab Results 07/19/19 07/19/19 07/19/19 Range/Units 18:15 18:15 18:15 WBC 8.79 (4.8-10.8) K/uL RBC 4.35 L (4.7-6.1) M/uL Hgb 13.2 L (14.0-18.0) g/dL Hct 40.2 L (42-52) % MCV 92.4 (80-100) fL MCH 30.3 (25-34) pg MCHC 32.8 (32-36) g/dL RDW Std Deviation 50.4 H (36.4-46.3) fL RDW Coeff of Nicki 14.9 H (11.5-14.5) % Plt Count 164 (130-400) K/uL MPV 10.1 (7.4-10.4) fL Immature Gran % (Auto) 0.1 % Neut % (Auto) 74.4 % Lymph % (Auto) 7.4 % [place] % (Auto) 17.9 % Eos % (Auto) 0.0 % Baso % (Auto) 0.2 % Immature Gran # (Auto) 0.01 (0.00-0.02) K/uL Neut # (Auto) 6.54 H (1.4-6.5) K/uL Lymph # (Auto) 0.65 L (1.2-3.4) K/uL [place] # (Auto) 1.57 H (0.11-0.59) K/uL Eos # (Auto) 0.00 (0-0.5) K/uL Baso # (Auto) 0.02 (0-0.2) K/uL PT 11.4 (9.0-12.0) Seconds INR 1.1 (0.9-1.1) APTT 31.0 (21.0-31.0) Seconds PTT Ratio 1.1 Sodium 134 L (136-145) mmol/L Potassium 3.8 (3.5-5.1) mmol/L Chloride 101 (98-107) mmol/L Carbon Dioxide 23 (21-32) mmol/L Anion Gap 10.0 (3-11) BUN 54 H (7-18) mg/dl Creatinine 2.10 H (0.6-1.4) mg/dl Est Cr Clr Drug Dosing Not Reportable Est GFR ( Amer) 31.8 Est GFR (Non-Af Amer) 27.5 BUN/Creatinine Ratio 25.5 H (10-20) Glucose 133 H (70-99) mg/dl Calcium 8.6 (8.5-10.1) mg/dl Total Bilirubin 0.7 (0.2-1) mg/dl AST 37 (15-37) U/L ALT 9 L (12-78) U/L Alkaline Phosphatase 59 (45-117) U/L Troponin I 0.490 H* (0-0.045) ng/ml Total Protein 7.2 (6.4-8.2) gm/dl Albumin 3.1 L (3.4-5.0) gm/dl Globulin 4.1 H (2.5-4.0) gm/dl Albumin/Globulin Ratio 0.8 L (0.9-2) Imaging Data Attestation: I personally reviewed and interpreted this imaging study as follows: My Impression: Chest x-ray: Possible infiltrate left base Radiologist's Impression: IMPRESSION: Patchy hazy density within the lung bases, left greater than right. This may represent a pneumonia and could be secondary to a viral process. ECG Data Attestation: I personally reviewed and interpreted this ECG as follows: Indication: + weakness Rate (beats per minute): 142 Rhythm: + atrial flutter ECG ST segments: no ST elevation ECG Findings: no PVCs Blood Pressure Blood Pressure Findings: Low blood pressure MDM Narrative This is an 88-year-old male who presents to the ED with a chief complaint of generalized weakness since Thursday. He has a history of Parkinson's disease as well as urinary tract infections. The family was worried about UTI. He is also had a decreased appetite with decreased p.o. intake. He is normally ambulatory but has not been ambulatory since Thursday according to the son, who takes care of him. The patient denies any chest pains or shortness of breath. He denies any abdominal pains, palpitations or fevers or recent illness. No headaches. Symptoms are moderate. The patient's physical exam reveals generalized weakness as well as a rapid and irregular heart rate. The EKG shows a flutter with va riable conduction at a rate of 142. The patient's troponin is elevated at 8.49. Her BUN is 54 and her creatinine is 2.1. Baseline is around 1.5. Chest x-ray did not show some patchy haziness in the bases. CBC was unremarkable. The patient was covered with IV Levaquin for the pulmonary findings. Also blood cultures were performed. The patient was treated with 2 L of normal saline IV and given IV Lopressor. The patient converted into a sinus rhythm during his ED stay. His blood pressure remained stable. He was seen by the hospitalist for further inpatient evaluation and care. Cardiac monitoring: An order was placed for continuous cardiac monitoring. The monitor shows a rate of 1 50-65 with initially a flutter with RVR and then a sinus rhythm. Impression & Plan Atrial flutter with rapid ventricular response, KRZYSZTOF (acute kidney injury), Acute dehydration, Pneumonia Discharge Plan Visit Data Chief Complaint: Illness Stated Complaint: UTI - LOST MOBILITY - WEAKNESS - LOST OF APPETITE ED Provider: Alfie Weiner Discharge Problem: Atrial flutter with rapid ventricular response, KRZYSZTOF (acute kidney injury), Acute dehydration, Pneumonia Patient Disposition: Being Evaluated by Hospitalist Forms Stand Alone Forms: My [employer] Prescriptions Prescriptions: No Action donepezil 5 mg tablet 5 mg PO QAM 30 Days Qty: 30 RF: 5 venlafaxine 150 mg capsule,extended release 24hr 150 mg PO DAILY@1300 Qty: 90 RF: 1 hydrochlorothiazide 12.5 mg tablet 12.5 mg PO QAM Qty: 30 RF: 5 carbidopa-levodopa 25-100 mg tablet 2 tab PO QID 30 Days Qty: 240 RF: 5 trospium 60 mg capsule,extended release 24hr 60 mg PO DAILY Qty: 90 RF: 1 polyethylene glycol 3350 [Miralax] 17 gram/dose powder 17 gm PO DAILY PRN (Reason: constipation) Qty: 119 RF: 0 ciprofloxacin HCl [Cipro] 500 mg tablet 500 mg PO BID Qty: 14 RF: 0 nitroglycerin 0.4 mg tablet, sublingual 0.4 mg SL Q5M PRN (Reason: chest pain) RF: 0 cholecalciferol (vitamin D3) 1,000 unit capsule 1,000 units PO DAILY@1300 RF: 0 aspirin 81 mg tablet,delayed release (DR/EC) 81 mg PO DAILY@1300 RF: 0 folic acid 1 mg tablet 1 mg PO DAILY@1300 Qty: 30 RF: 0 cyanocobalamin (vitamin B-12) 1,000 mcg tablet 1,000 mcg PO DAILY@1300 Qty: 30 RF: 0 omeprazole 20 mg capsule,delayed release(DR/EC) 20 mg PO DAILY RF: 0 Referrals Referrals: Manisha Pedersen MD [Primary Care Provider] -
[2019-07-19 18:37] LABS: INR 1.1 (0.9-1.1); Partial Thromboplastin Ratio 1.1; Prothrombin Time 11.4 Seconds (9.0-12.0)
[2019-07-19 18:44] LABS: Alanine Aminotransferase 9 U/L (12-78); Albumin Level 3.1 gm/dl (3.4-5.0); Aspartate Aminotransferase 37 U/L (15-37); BUN Creatinine Ratio 25.5 (10-20); Blood Urea Nitrogen 54 mg/dl (7-18); Calcium 8.6 mg/dl (8.5-10.1); Carbon Dioxide 23 mmol/L (21-32); Chloride 101 mmol/L (98-107); Est GFR (African American) 31.8; Est GFR (Non-African American) 27.5; Glucose 133 mg/dl (70-99); Potassium 3.8 mmol/L (3.5-5.1); Sodium 134 mmol/L (136-145)
[2019-07-19 19:01] LABS: Albumin Globulin Ratio 0.8 (0.9-2); Alkaline Phosphatase 59 U/L (45-117); Bilirubin,Total 0.7 mg/dl (0.2-1); Globulin 4.1 gm/dl (2.5-4.0); Total Protein 7.2 gm/dl (6.4-8.2)
[2019-07-19] MEDS ORDERED: LEVOFLOXACIN/D5W 750 MG/150 ML BAG IV SCH (19:15)
[2019-07-19] MEDS ORDERED: SODIUM CHLORIDE 0.9% 1000ML 1,000 ML IV ONE (19:45)
[2019-07-19] MEDS: METOPROLOL TARTRATE 1 MG/ML VIAL IV PRN (20:02)
[2019-07-20] MEDS ORDERED: CARBIDOPA/LEVODOPA 25/100MG TAB PO STA (00:03)
--- NOTE | 2019-07-20 00:15 | History & Physical Report ---
Date of Service July 20, 2019 Assessment & Plan (1) Atrial flutter with rapid ventricular response: Patient is a pleasant 88 year old male with PMHx Parkinsons disease, HTN, GERD, Urinary Urgency, and depression who presented with chief complaint of generalized weakness since Thursday found to be in Aflutter on arrival, converted to sinus rhythm with fluids and lopressor, later converting to atrial fibrillation, converted to sinus with lopressor. ED course: 2L NSS, Lopressor 5mg, Levaquin 150mg IV Atrial Flutter/Atrial Fibrillation -Found to be in Aflutter on arrival in ED on EKG which converted to NSR after 2L NSS and Lopressor 5mg -Patient later converted to Atrial Fibrillation which returned to NSR after Lopressor 5mg -Start Metoprolol Succinate 25mg QD -Echo ordered -Consult Cardiology Parkinsons Disease -Follows with Dr. Costello -Continue Carbidopa/Levodopa 25/100mg x2 QID -Continue Donepezil 5mg QAM -Consult Neurology KRZYSZTOF -Creatinine 2.1 on admission, baseline 1.5 -Continue gentle fluids NSS+20meq K 80ml/hr Acute Dehydration -Continue fluids as above Dysphagia -Concern for aspiration -?PNA on Chest XR, given Levaquin 150mg in ED -Speech consult Hypertension -Continue home HCTZ -Starting metoprolol succinate 25mg Urinary Urgency -Continue home Trospium Depression -Continue home Venlafaxine GERD -Protonix 40mg QD Dispo: Telemetry FEN: NSS + 20meq KCL 80ml/hr DVT: No pharmaceutical ordered at this time Code: DNR/DNI (2) Atrial fibrillation: (3) Acute dehydration: (4) KRZYSZTOF (acute kidney injury): (5) Depression: (6) Parkinsons disease: (7) Urinary urgency: (8) Hypertension: (9) Dysphagia: History of Present Illness Chief Complaint: Weakness and AFlutter Primary Care Provider: Manisha Pedersen MD Patient is a pleasant 88 year old male with PMHx Parkinsons disease, HTN, GERD, Urinary Urgency, and depression who presented with chief complaint of generalized weakness since Thursday. The patient notes that his memory is poor and he has been having difficulty "answering questions" which makes him feel tense. History provided is from the patient, his son Shadi, and ED documentation. Patient notes that he had been noticing increasing weakness for close to 6 months now, but that more recently on Thursday he has been having more difficulty getting around. His son states that the patient typically ambulates around, but has not been doing so as much since Thursday. This morning he notes that the patient appeared more lethargic than usual and was again increasingly anxious. His son states that he was concerned his father may have a UTI as he has had them in the past and has reacted similarly. Speaking with the patient now, patient notes that other than feeling tense from inability to answer questions appropriately, he is not noting any discomfort. He notes that he could not tell he was in Aflutter and did not experience any chest pain, palpitations, SOB, headaches, dizziness. Allergies Allergy/AdvReac Type Severity Reaction Status Date / Time Penicillins AdvReac Mild "STRANGE Verified 07/19/19 19:31 REACTION" Home Medications Home Medications Medication Instructions Recorded Confirmed Type aspirin 81 mg tablet,delayed 81 mg PO DAILY@1300 tab 08/09/18 07/19/19 History release cyanocobalamin (vitamin B-12) 1,000 mcg PO DAILY@1300 #30 tab 08/09/18 07/19/19 History 1,000 mcg tablet folic acid 1 mg tablet 1 mg PO DAILY@1300 #30 tab 08/09/18 07/19/19 History nitroglycerin 0.4 mg sublingual 0.4 mg SL Q5M PRN tab 12/31/18 07/19/19 History tablet cholecalciferol (vitamin D3) 25 1,000 units PO DAILY@1300 01/04/19 07/19/19 History mcg (1,000 unit) capsule donepezil 5 mg tablet 5 mg PO QAM 30 Days #30 tab 02/28/19 07/19/19 Rx venlafaxine 150 mg 150 mg PO DAILY@1300 #90 cap 04/13/19 07/19/19 Rx capsule,extended release 24 hr hydrochlorothiazide 12.5 mg tablet 12.5 mg PO QAM #30 tab 04/28/19 07/19/19 Rx carbidopa 25 mg-levodopa 100 mg 2 tab PO QID 30 Days #240 tab 06/07/19 07/19/19 Rx tablet trospium 60 mg capsule,extended 60 mg PO DAILY #90 cap 06/28/19 07/19/19 Rx release 24 hr polyethylene glycol 3350 17 17 gm PO DAILY PRN #119 gm 07/13/19 07/19/19 Rx gram/dose oral powder ciprofloxacin HCl 500 mg tablet 500 mg PO BID #14 tab 07/19/19 07/19/19 Rx omeprazole 20 mg PO DAILY 07/19/19 07/19/19 History Past Med/Surg History Medical History Abnormal EKG (Acute) Allergic rhinitis (Acute) Anemia (Acute) Anemia of chronic disease (Acute) Angina (Chronic 08/29/12) Arteriosclerosis of coronary artery (Acute) Hodgson's esophagus (Acute) Constipation (Chronic) Constipation (Acute) Depression (Acute) Dizziness, nonspecific (Acute) Elevated serum homocysteine level (Acute) Encounter for long-term (current) use of medications (Acute) Episodic mood disorder (Acute) Fall (Acute) Festinating gait (Acute) Foot drop, right (Acute) Foot pain, left (Acute) Gait disturbance (Acute) Gastroesophageal reflux disease (Acute) H/O hydrocele Hammer toe (Acute) Hearing loss (Acute) Hyperkeratosis (Acute) Hyperlipidemia (Acute 08/29/12) Hyperlipidemia (Chronic) Hypertension (Chronic) Incontinence (Acute) Insomnia (Acute) Lumbar spondylosis (Acute) Malignant neoplasm of prostate (Chronic) Memory loss (Acute) Mitral insufficiency (Acute) Muscle weakness (generalized) (Acute) Neoplasm of uncertain behavior of skin (Acute) Orthostatic hypotension (Acute) Orthostatic hypotension (Acute) Parkinsonism (Chronic 08/29/12) Parkinsons disease (Chronic) Pre-ulcerative calluses (Acute) Severe recurrent depression with psychosis (Acute) Tremor (Acute) Urinary incontinence (Chronic) Urinary symptom or sign (Acute) Urinary urgency (Acute) 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) Vitamin D deficiency (Chronic) Weakness generalized (Acute) Surgical History H/O colonoscopy with polypectomy H/O prostatectomy History of tonsillectomy S/P repair of hydrocele Family History Grandmother (Paternal) Colorectal cancer Uncle Colorectal cancer Father , early 80s of heart issues. Congestive heart failure Cardiac disorder Hypertension Myocardial infarction Mother , age 99 of uncertain causes No problems noted. 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 Feels Safe at Home: Yes Safety Concerns: Feels Safe At This Time Smoking Status: Former smoker Tobacco Type: cigarettes ; Hx Alcohol Use: Yes Alcohol type: beer Alcohol Intake Frequency: Holidays/Special Occasions Hx Substance Use: No Seatbelt Use: always Review of Systems Constitutional: no fever, no chills and no weakness Eyes: no worsening vision Ear, Nose, Mouth, Throat: no dizziness top and bottom partial dentures Respiratory: no cough, no dyspnea and no pain on inspiration Cardiovascular: no chest pain, no dyspnea, no dyspnea on exertion, no palpitations and no edema Gastrointestinal: + constipation; no abdominal pain, no nausea and no vomiting Genitourinary: + difficulty urinating (difficulty initiating ); no dysuria and no urinary frequency Musculoskeletal: no back pain Integumentary: no rash Neurologic: + generalized weakness; no falls Psychiatric: + anxiety Physical Exam Constitutional: WD/WN, vitals as above cooperative; no acute distress, not diaphoretic and not lethargic Eyes: PERRL, conjunctivae normal, anicteric sclerae ENMT: external ear and nose normal, oropharynx normal Ears: + hearing impairment Mouth: + dentures Neck: trachea midline, no thyromegaly Respiratory: normal respiratory effort, lungs clear to auscultation Cardiovascular: Rate/Rhythm: regular rate Heart Sounds: no murmur Vessels: no JVD Extremities: no edema Gastrointestinal (Abdomen): normal bowel sounds, soft, nontender, no hepatosplenomegaly Musculoskeletal: no cyanosis or clubbing, extremities motor strength 5/5 Head/Neck/Chest: normocephalic and head atraumatic intention tremor of upper extremities b/l Skin: no rashes, warm and dry Neurologic: PERRL, EOMI, accommodation nl, no face palsy, no dysarthria Psychiatric: Orientation: alert, oriented to person, oriented to place and cooperative; + not oriented to time Eye Contact: good eye contact Motor Behavior: + tremor Affect: euthymic affect Results & Data Results & Data ([facility]) Vital Signs (Past 12 Hours) Vital Signs Temp Pulse Pulse Resp BP BP Pulse Ox 07/19/19 23:45 66 24 104/70 93 07/19/19 23:30 65 18 103/73 95 07/19/19 23:15 65 21 114/78 95 07/19/19 23:00 64 24 96/67 L 95 07/19/19 22:45 64 24 91/71 L 94 07/19/19 22:30 65 22 95/66 L 94 07/19/19 22:15 65 22 93/78 L 94 07/19/19 22:00 66 22 118/73 94 07/19/19 21:45 65 22 95/72 L 95 07/19/19 21:30 66 22 103/70 94 07/19/19 21:15 67 23 100/74 94 07/19/19 21:01 75 23 107/71 97 07/19/19 20:45 102 H 23 109/75 95 07/19/19 20:30 93 H 25 H 110/82 96 07/19/19 20:15 101 H 16 109/71 90 07/19/19 20:05 120 H 25 H 103/82 92 07/19/19 20:02 136 H 109/87 07/19/19 20:00 126 H 28 H 109/87 92 07/19/19 19:57 131 H 18 120/81 93 07/19/19 19:08 128 H 32 H 95/68 L 95 07/19/19 19:00 117 H 29 H 106/76 92 07/19/19 18:45 136 H 23 118/94 95 07/19/19 18:30 138 H 18 98/83 L 86 L 07/19/19 18:23 96 07/19/19 18:15 143 H 25 H 102/80 94 07/19/19 18:00 155 H 20 118/84 95 07/19/19 17:44 36.7 C 20 85/49 L 92 Supervising Physician Co-Signing Physician Notes Attending addendum: I have physically seen this patient, have supervised the medical residents activities, and agree with the H&P unless as otherwise noted. Assessment and Plan: Atrial flutter/atrial fibrillation with RVR/hypertension/KRZYSZTOF-- The patient will be admitted to telemetry for serial cardiac enzymes, serial EKG's, cardiac rhythm monitoring and a 2-D echocardiogram with Dopplers. Converted to normal sinus rhythm in ED if 2 L normal saline and Lopressor 5 mg IV. Start metoprolol succinate 25 mg p.o. daily, with first dose now, along with additional dose of Lopressor 5 mg IV for recurrent A. fib while in ED. Hold HCTZ. Repeat BMP and magnesium level in a.m. Consult cardiology. To discuss anticoagulation. Parkinson's- Continue carbidopa/levodopa 25/100, 2 tablets p.o. 4 times daily. Continue donepezil 5 mg every morning. Consult his neurologist Dr. Costello. Remainder of orders and notations as noted. PG Care Time/CCT Total # of Minutes Spent Total Time Spent with Patient: Total time spent is greater than 50% in coordination of care (as documented) at patient's floor/unit and/or counseling patient: Coding Level of Care Code 96723 Initial Inpt Care Lvl 3 Diagnoses Atrial flutter with rapid ventricular response I48.92 Atrial fibrillation I48.91 Acute dehydration E86.0 KRZYSZTOF (acute kidney injury) N17.9 Depression F32.9 Parkinsons disease G20 Urinary urgency R39.15 Hypertension I10 Dysphagia R13.10 Resident Activity Tracking Resident Involvement: Resident Care Provided Care Provided: Adult Hospital Medicine
[2019-07-20] MEDS: METOPROLOL TARTRATE 1 MG/ML VIAL IV PRN (01:03)
[2019-07-20] MEDS ORDERED: NSS + 20MEQ KCL 20 MEQ/1,000 ML BAG IV SCH (01:50)
[2019-07-20] MEDS ORDERED: POLYETHYLENE (MIRALAX) 17 GM PACK PO PRN (01:50)
[2019-07-20] MEDS ORDERED: NITROGLYCERIN SL 0.4 MG/TAB TAB SL PRN (01:50)
[2019-07-20] MEDS ORDERED: METOPROLOL SUCC 25MG EXT REL TAB PO STA (01:58)
[2019-07-20 02:46] LABS: Basophils # (auto) 0.03 K/uL (0-0.2); Basophils % (auto) 0.4 %; Eosinophils # (auto) 0.01 K/uL (0-0.5); Eosinophils % (auto) 0.1 %; Hemoglobin 11.5 g/dL (14.0-18.0); Immature Granulocytes # (auto) 0.01 K/uL (0.00-0.02); Immature Granulocytes % (auto) 0.1 %; Lymphocytes # (auto) 0.95 K/uL (1.2-3.4); Mean Corpuscular Hemoglobin 29.9 pg (25-34); Mean Corpuscular Hgb Conc 31.9 g/dL (32-36); Mean Corpuscular Volume 93.8 fL (80-100); Mean Platelet Volume 10.7 fL (7.4-10.4); Monocytes # (auto) 0.86 K/uL (0.11-0.59); Monocytes % (auto) 12.7 %; Neutrophils # (auto) 4.92 K/uL (1.4-6.5); Neutrophils % (auto) 72.7 %; Platelet Count 154 K/uL (130-400); RDW Standard Deviation 51.3 fL (36.4-46.3); Red Blood Count 3.84 M/uL (4.7-6.1); White Blood Count 6.78 K/uL (4.8-10.8)
[2019-07-20 03:04] LABS: BUN Creatinine Ratio 29.5 (10-20); Calcium 7.7 mg/dl (8.5-10.1); Creatinine Clr Calc Pharmacy 30.9 ml/min; Est GFR (African American) 37.1; Magnesium 2.3 mg/dl (1.8-2.4); Phosphorus 4.2 mg/dl (2.5-4.9); Potassium 3.9 mmol/L (3.5-5.1)
[2019-07-20 03:11] LABS: Troponin I 0.234 ng/ml (0-0.045)
[2019-07-20] MEDS: TROSPIUM~ORDER AWAITING ACTION SCH ×3 (08:06→23:43)
[2019-07-20] MEDS: CARBIDOPA/LEVODOPA 25/100MG TAB PO SCH ×4 (08:27→21:40)
[2019-07-20] MEDS: PANTOprazole 40 MG TAB PO SCH (08:27)
--- NOTE | 2019-07-20 08:39 | Neurology Consultation ---
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 On examination he has resting tremor left greater than right side, cogwheel rigidity of a moderate to significant nature diffusely, moderate bradykinesia in general, and a history of Parkinson's gait (gait was not tested today because of weakness). The patient has a postural and action tremor left greater than right side as well. He has a moderate dementia which is also progressive by history and is likely mixed aging/Parkinson's, although vascular cannot be excluded. Patient has a history of orthostatic hypotension which is likely secondary to c arbidopa/levodopa. Cardiac dysrhythmia would contribute to this as well. He has been going in and out of atrial fibrillation/flutter since arriving at the emergency room. The patient has a history of depression which is stable on venlafaxine. The patient has some very mild right arm and leg weakness compared to the left. In addition he is leaning to the right consistently. I cannot exclude a small left hemispheric CVA and his risk factor would be flipping in and out of sinus rhythm and atrial fib/flutter. Recommendations: 1. Keep carbidopa/levodopa the same for now. 2. Physical and occupational therapy consults. Increase activity as able. 3. Discontinue donepezil. This is likely contributing to lightheadedness and possibly confusion. Consider Namenda 5 milligrams twice a day for dementia. This can be titrated as an outpatient. 4. Obtain MRI of the brain without contrast to evaluate for stroke. 5. Cardiology has been consulted and strong consideration should be given to an anticoagulant, since he is going in and out of AFib/flutter. His risk for stroke from this is high. 6. Keep venlafaxine the same. 7. Because of his weakness, obtain TSH, B12, folate, CK, aldolase, ESR Overall, I spent a total of 100 minutes with this case including review of records, direct evaluation the patient at bedside, discussion of the case with the patient at bedside, RN at bedside, and Dr. Prak, including differential diagnosis and treatment options. History of Present Illness Reason for Consultation: Patient is an 88-year-old who was asked to see at the request of Dr. Hernandez, for neurologic consultation regarding Parkinson's disease and other issues. Requesting Physician: Dr. Hernandez Attending Physician: Rich aPrk MD History of Present Illness Patient has a history of progressive Parkinson's disease for over 7 years now, followed closely by Dr. Costello as an outpatient. He last saw this patient on June 07, 2019. The patient is on Sinemet 25/100 2 tablets 4 times a day and this does help his significant resting tremor, rigidity, and bradykinesia. He is also getting lightheaded with standing so there was reluctance to increase or add to his medication for Parkinson's. His exam back in November of 2018 was remarkable for left greater than right resting tremor, significant bradykinesia and rigidity, as well as stooped and shuffling gait. In addition, the patient has a progressive dementia, likely related to Agent Parkinson's disease. He is on a very low dose of donepezil, and again, there is reluctance increase the dose because of increased confusion or lightheadedness. Apparently the patient has been weak in general with inability to ambulate for 5 days prior to admission. He had decreased appetite. No one mentioned any focal weakness or leaning to the right. On July 18 at 1744, temperature was 36.7, pulse 155 in atrial flutter, respiratory rate 20, blood pressure 85/49, O2 saturation 92 percent. Apparently he was in atrial fib/flutter with rapid ventricular rate, and spontaneously went out of this in the emergency room. Exam was felt to be free of focal neurologic deficits CBC showed a mild anemia and Chem profile was remarkable for an elevated BUN and creatinine. Glucose was 133. Chest x-ray and a possible left greater than the right lower lobe infiltrate. EKG showed atrial flutter with rapid ventricular rate. This morning CBC shows anemia but no elevated white count. BUN is elevated as is the creatinine. He had a 90 minutes episode of atrial fib flutter earlier this morning. Currently he is back to normal sinus rhythm. Patient is self has no complaint of pain or headache. He is currently not dizzy sitting up in bed and has no chest pain or shortness of breath. He has no abdominal pain. He denies depression or anxiety and feels that he is sleeping well. He denies any weakness or numbness of the limbs. Allergies Allergy/AdvReac Type Severity Reaction Status Date / Time Penicillins AdvReac Mild "STRANGE Verified 07/19/19 19:31 REACTION" Home Medications Home Medications Medication Instructions Recorded Confirmed Type aspirin 81 mg tablet,delayed 81 mg PO DAILY@1300 tab 08/09/18 07/19/19 History release cyanocobalamin (vitamin B-12) 1,000 mcg PO DAILY@1300 #30 tab 08/09/18 07/19/19 History 1,000 mcg tablet folic acid 1 mg tablet 1 mg PO DAILY@1300 #30 tab 08/09/18 07/19/19 History nitroglycerin 0.4 mg sublingual 0.4 mg SL Q5M PRN tab 12/31/18 07/19/19 History tablet cholecalciferol (vitamin D3) 25 1,000 units PO DAILY@1300 01/04/19 07/19/19 History mcg (1,000 unit) capsule donepezil 5 mg tablet 5 mg PO QAM 30 Days #30 tab 02/28/19 07/19/19 Rx venlafaxine 150 mg 150 mg PO DAILY@1300 #90 cap 04/13/19 07/19/19 Rx capsule,extended release 24 hr hydrochlorothiazide 12.5 mg tablet 12.5 mg PO QAM #30 tab 04/28/19 07/19/19 Rx carbidopa 25 mg-levodopa 100 mg 2 tab PO QID 30 Days #240 tab 06/07/19 07/19/19 Rx tablet trospium 60 mg capsule,extended 60 mg PO DAILY #90 cap 06/28/19 07/19/19 Rx release 24 hr polyethylene glycol 3350 17 17 gm PO DAILY PRN #119 gm 07/13/19 07/19/19 Rx gram/dose oral powder ciprofloxacin HCl 500 mg tablet 500 mg PO BID #14 tab 07/19/19 07/19/19 Rx omeprazole 20 mg PO DAILY 07/19/19 07/19/19 History Patient History Medical History Abnormal EKG (Acute) Allergic rhinitis (Acute) Anemia (Acute) Anemia of chronic disease (Acute) Angina (Chronic 08/29/12) Arteriosclerosis of coronary artery (Acute) Hodgson's esophagus (Acute) Constipation (Chronic) Constipation (Acute) Depression (Acute) Dizziness, nonspecific (Acute) Elevated serum homocysteine level (Acute) Encounter for long-term (current) use of medications (Acute) Episodic mood disorder (Acute) Fall (Acute) Festinating gait (Acute) Foot drop, right (Acute) Foot pain, left (Acute) Gait disturbance (Acute) Gastroesophageal reflux disease (Acute) H/O hydrocele Hammer toe (Acute) Hearing loss (Acute) Hyperkeratosis (Acute) Hyperlipidemia (Acute 08/29/12) Hyperlipidemia (Chronic) Hypertension (Chronic) Incontinence (Acute) Insomnia (Acute) Lumbar spondylosis (Acute) Malignant neoplasm of prostate (Chronic) Memory loss (Acute) Mitral insufficiency (Acute) Muscle weakness (generalized) (Acute) Neoplasm of uncertain behavior of skin (Acute) Orthostatic hypotension (Acute) Orthostatic hypotension (Acute) Parkinsonism (Chronic 08/29/12) Parkinsons disease (Chronic) Pre-ulcerative calluses (Acute) Severe recurrent depression with psychosis (Acute) Tremor (Acute) Urinary incontinence (Chronic) Urinary symptom or sign (Acute) Urinary urgency (Acute) 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) Vitamin D deficiency (Chronic) Weakness generalized (Acute) Surgical History H/O colonoscopy with polypectomy H/O prostatectomy History of tonsillectomy S/P repair of hydrocele Family History Grandmother (Paternal) Colorectal cancer Uncle Colorectal cancer Father , early 80s of heart issues. Congestive heart failure Cardiac disorder Hypertension Myocardial infarction Mother , age 99 of uncertain causes No problems noted. 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 Feels Safe at Home: Yes Safety Concerns: Feels Safe At This Time Smoking Status: Former smoker Tobacco Type: cigarettes ; Hx Alcohol Use: Yes Alcohol type: beer Alcohol Intake Frequency: Holidays/Special Occasions Hx Substance Use: No Seatbelt Use: always Review of Systems Constitutional: + fatigue and + weakness; no fever Eyes: no diplopia, no eye pain and no worsening vision Ear, Nose, Mouth, Throat: + hearing loss; no ear pain, no tinnitus, no dizzin ess, no hoarseness and no dysphagia Respiratory: no cough and no dyspnea Cardiovascular: no chest pain, no dyspnea at rest, no palpitations and no l ightheadedness Gastrointestinal: no abdominal pain, no nausea and no vomiting Genitourinary: no dysuria and no urinary incontinence Musculoskeletal: no back pain, no neck pain, no radicular pain, no joint pain and no myalgia Integumentary: no rash and no lesions Neurologic: + generalized weakness, + tremor(s), + abnormal movements and + memory loss; no gait abnormality, no localized weakness, no tingling, no numbness, no headache(s), no abnormal speech and no confusion Psychiatric: no depression, no irritability, no anxiety, no difficulty concentrating, no confusion and no hallucinations Endocrine: no fatigue and no flushing Hematologic / Lymphatic: no easy bleeding and no easy bruising Allergy / Immunological: no urticaria and no problem reported Exam (Neuro) Physical Exam: The patient is left-handed. The patient is awake, alert, and attentive. Speech is fairly normal without any specific aphasia or dysarthria. he can name objects, repeat phrases, and has reasonable spontaneous speech. Mentation and thought processes are impaired with orientation to person but not specific time. He does know he is in a hospital. Attention and concentration are normal. Mood and affect are normal and appropriate. General appearance and grooming are normal. Short and long- term memory are poor. He did not know his age, the day, the date, or the president. He was poor with long and medium term memories. He did know the month and the year. The discs are sharp with positive venous pulsations bilaterally. There are no exudates, hemorrhages, or blood vessel changes seen. Pupils are 3 mm bilaterally and reactive to light. Extraocular eye muscles are intact without nystagmus. Visual acuity and visual talavera seem normal grossly to confrontation. There are no deficits to sensation in the face in all 3 distributions of the fifth cranial nerve bilaterally. Corneal reflexes are positive bilaterally. Facial strength and symmetry was normal bilaterally. I could not detect any facial droop. Hearing seems decreased bilaterally. Palate moves well without asymmetry. There is normal sternocleidomastoid and trapezius (shoulder shrug) strength bilaterally. Tongue is midline with good strength bilaterally. He has a very mild masklike face and [id number] bradykinesia in general. Neck has a full range of motion without discomfort. There are no cervical bruits bilaterally. There are no cranial or ocular bruits. Heart is without murmur. There is a regular rhythm and rate. Cervical, thoracic, and lumbar spine are nontender to palpation. Gait is not tested this morning but his stance is poor leaning consistently to the right and unable to give keep sitting upright. He will spontaneously move his left arm and leg a little more than his right arm and leg. With outstretched arms there is no pronator drift, but the right arm sags more than the left. He has an intermittent left greater than right resting tremor. He has mild left greater than right posture and action tremor bilaterally in the upper extremities. There is no specific ataxia with finger to nose testing. There is decreased facility in the hands. No other abnormal involuntary movements are noted. Motor strength is 5/5 diffusely in the left upper extremity including deltoids, biceps, triceps, brachioradialis, wrist flexors and extensors, artificial pearl maker, and intrinsic hand muscles. The right upper extremity has 5/5 triceps with 4+/5 deltoid and biceps. Distal muscles including artificial pearl maker and intrinsic hand muscles are 4+/5. Motor strength is 4+/5 diffusely in the left lower extremity including hip flexors, quadriceps, hamstrings, gastrocnemius, tibialis anterior, tibialis posterior, and Peroneii muscles. Right lower extremity strength is 4/5 Toe extensors are normal and there is good bulk in the extensor digitorum brevis muscles bilaterally. The limbs have moderate to significant cogwheel rigidity diffusely. There is no atrophy noted in the muscles. Muscle bulk is normal, there is no tenderness to palpation, no myotonia to percussion, and no fasciculations seen. Sensory examination is intact to touch and pin throughout all 4 limbs diffusely. Reflexes are 1/4 in the biceps, triceps, brachioradialis, and quadriceps tendons bilaterally. Achilles tendon reflexes are absent bilaterally. There is no clonus bilaterally. Toes are downgoing with plantar stimulation bilaterally. Peripheral pulses are present and of normal quality distally in all 4 limbs. There is no peripheral edema noted in the limbs. Results & Data ([facility]) Vital Signs (Past 12 Hours) Vital Signs Temp Pulse Pulse Pulse Resp BP BP 07/20/19 07:29 37.3 C 108 H 19 121/69 07/20/19 04:08 36.9 C 65 18 99/64 L 07/20/19 02:21 62 07/20/19 01:50 36.8 C 64 18 92/56 L 07/20/19 01:06 102 H 23 105/78 07/20/19 01:03 131 H 108/73 07/20/19 01:02 115 H 24 108/73 07/20/19 01:00 144 H 22 104/81 07/20/19 00:30 65 22 104/68 07/20/19 00:00 65 22 91/64 L 07/19/19 23:45 66 24 104/70 07/19/19 23:30 65 18 103/73 07/19/19 23:15 65 21 114/78 07/19/19 23:00 64 24 96/67 L 07/19/19 22:45 64 24 91/71 L 07/19/19 22:30 65 22 95/66 L 07/19/19 22:15 65 22 93/78 L 07/19/19 22:00 66 22 118/73 07/19/19 21:45 65 22 95/72 L 07/19/19 21:30 66 22 103/70 07/19/19 21:15 67 23 100/74 07/19/19 21:01 75 23 107/71 07/19/19 20:45 102 H 23 109/75 Pulse Ox 07/20/19 07:29 07/20/19 04:08 95 07/20/19 02:21 07/20/19 01:50 94 07/20/19 01:06 96 07/20/19 01:03 07/20/19 01:02 94 07/20/19 01:00 97 07/20/19 00:30 95 07/20/19 00:00 93 07/19/19 23:45 93 07/19/19 23:30 95 07/19/19 23:15 95 07/19/19 23:00 95 07/19/19 22:45 94 07/19/19 22:30 94 07/19/19 22:15 94 07/19/19 22:00 94 07/19/19 21:45 95 07/19/19 21:30 94 07/19/19 21:15 94 07/19/19 21:01 97 07/19/19 20:45 95 PG Care Time/CCT Total # of Minutes Spent Total Time Spent with Patient: Total time spent is greater than 50% in coordination of care (as documented) at patient's floor/unit and/or counseling patient: Coding Level of Care Code 49265 Initial Inpt Care Lvl 3 Diagnoses Parkinsons disease G20 Tremor R25.1 Dementia F03.90 Atrial fibrillation/flutter I48.91; I48.92 Orthostatic hypotension I95.1 Weakness generalized R53.1 Depression F32.9 Time Spent (min) 100 Comment Add [id number] to the [id number]
[2019-07-20] MEDS ORDERED: DONEPEZIL HCL 5 MG TAB PO SCH (09:00)
[2019-07-20] MEDS ORDERED: hydroCHLOROthiazide 25 MG TAB PO SCH (09:00)
[2019-07-20] MEDS ORDERED: METOPROLOL TARTRATE 1 MG/ML VIAL IV STA (09:15)
--- NOTE | 2019-07-20 09:51 | Cardiology Consultation ---
Date of Consultation July 20, 2019 Assessment & Plan (1) Atrial flutter with rapid ventricular response: Justin Marinelli is a 88 y/o M with PMH significant for Parkinson's disease, HTN, and GERD; who presented for evaluation of generalized weakness that started 5 days ago. In the ED he was found to be in Atrial fibrillation with rapid ventricular rate AFibrillation w/ RVR: - on presentation to the ED patient was found to be with HR between 120-150 - overnight received 5mg x2 metoprolol tartrate IV, and 25mg metoprolol succinate PO - continued reversion into AFib with RVR - gave additional 5mg IV Metoprolol in AM with temporary reversion back to NSR - given patient's high risk for falls given baseline dementia and Parkinson's disease will hold anticoagulation - starting Amiodarone bolus with drip for rhythm control - Echo demonstrated LVH, normal LV function, mild mitral regurgitation Supervising Physician Co-Signing Physician Notes Patient seen and examined with Dr. Davis. Agree with his assessment and plan. History of Present Illness Attending Physician: Rich Park MD History of Present Illness Justin Marinelli is a 88 y/o M with PMH significant for Parkinson's disease, HTN, and GERD; who presented for evaluation of generalized weakness that started 5 days ago. In the ED he was found to be in Atrial fibrillation with rapid ventricular rate, at that time he received 5mg of Metoprolol tartrate and subsequently returned to normal sinus rhythm. Several times overnight his telemetry indicated that his heart rate was spontaneously reverting between Atrial Fibrillation and normal sinus rhythm. Throughout this time, the patient denies chest pain, discomfort, heaviness, palpitations, shortness of breath, headaches, falls, or changes in sensation. Endorses generalized weakness, and increased fatigue. Overnight patient received two doses of 5mg IV Metoprolol tartrate, and 25mg PO Metoprolol Succinate. HR this AM reverted into 120s-150s on telemetry with rhythm demonstrating return to Atrial fibrillation. Allergies Allergy/AdvReac Type Severity Reaction Status Date / Time Penicillins AdvReac Mild "STRANGE Verified 07/19/19 19:31 REACTION" Home Medications Home Medications Medication Instructions Recorded Confirmed Type aspirin 81 mg tablet,delayed 81 mg PO DAILY@1300 tab 08/09/18 07/19/19 History release cyanocobalamin (vitamin B-12) 1,000 mcg PO DAILY@1300 #30 tab 08/09/18 07/19/19 History 1,000 mcg tablet folic acid 1 mg tablet 1 mg PO DAILY@1300 #30 tab 08/09/18 07/19/19 History nitroglycerin 0.4 mg sublingual 0.4 mg SL Q5M PRN tab 12/31/18 07/19/19 History tablet cholecalciferol (vitamin D3) 25 1,000 units PO DAILY@1300 01/04/19 07/19/19 History mcg (1,000 unit) capsule donepezil 5 mg tablet 5 mg PO QAM 30 Days #30 tab 02/28/19 07/19/19 Rx venlafaxine 150 mg 150 mg PO DAILY@1300 #90 cap 04/13/19 07/19/19 Rx capsule,extended release 24 hr hydrochlorothiazide 12.5 mg tablet 12.5 mg PO QAM #30 tab 04/28/19 07/19/19 Rx carbidopa 25 mg-levodopa 100 mg 2 tab PO QID 30 Days #240 tab 06/07/19 07/19/19 Rx tablet trospium 60 mg capsule,extended 60 mg PO DAILY #90 cap 06/28/19 07/19/19 Rx release 24 hr polyethylene glycol 3350 17 17 gm PO DAILY PRN #119 gm 07/13/19 07/19/19 Rx gram/dose oral powder ciprofloxacin HCl 500 mg tablet 500 mg PO BID #14 tab 07/19/19 07/19/19 Rx omeprazole 20 mg PO DAILY 07/19/19 07/19/19 History Patient History Medical History Abnormal EKG (Acute) Allergic rhinitis (Acute) Anemia (Acute) Anemia of chronic disease (Acute) Angina (Chronic 08/29/12) Arteriosclerosis of coronary artery (Acute) Hdogson's esophagus (Acute) Constipation (Chronic) Constipation (Acute) Depression (Acute) Dizziness, nonspecific (Acute) Elevated serum homocysteine level (Acute) Encounter for long-term (current) use of medications (Acute) Episodic mood disorder (Acute) Fall (Acute) Festinating gait (Acute) Foot drop, right (Acute) Foot pain, left (Acute) Gait disturbance (Acute) Gastroesophageal reflux disease (Acute) H/O hydrocele Hammer toe (Acute) Hearing loss (Acute) Hyperkeratosis (Acute) Hyperlipidemia (Acute 08/29/12) Hyperlipidemia (Chronic) Hypertension (Chronic) Incontinence (Acute) Insomnia (Acute) Lumbar spondylosis (Acute) Malignant neoplasm of prostate (Chronic) Memory loss (Acute) Mitral insufficiency (Acute) Muscle weakness (generalized) (Acute) Neoplasm of uncertain behavior of skin (Acute) Orthostatic hypotension (Acute) Orthostatic hypotension (Acute) Parkinsonism (Chronic 08/29/12) Parkinsons disease (Chronic) Pre-ulcerative calluses (Acute) Severe recurrent depression with psychosis (Acute) Tremor (Acute) Urinary incontinence (Chronic) Urinary symptom or sign (Acute) Urinary urgency (Acute) 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) Vitamin D deficiency (Chronic) Weakness generalized (Acute) Surgical History H/O colonoscopy with polypectomy H/O prostatectomy History of tonsillectomy S/P repair of hydrocele Family History Grandmother (Paternal) Colorectal cancer Uncle Colorectal cancer Father , early 80s of heart issues. Congestive heart failure Cardiac disorder Hypertension Myocardial infarction Mother , age 99 of uncertain causes No problems noted. 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 Feels Safe at Home: Yes Safety Concerns: Feels Safe At This Time Smoking Status: Former smoker Tobacco Type: cigarettes ; Hx Alcohol Use: Yes Alcohol type: beer Alcohol Intake Frequency: Holidays/Special Occasions Hx Substance Use: No Seatbelt Use: always Review of Systems Review of Systems: All systems reviewed & are unremarkable except as noted in HPI & below Physical Exam Constitutional: + thin and + physical limitations; not diaphoretic and not lethargic Eyes: PERRL, conjunctivae normal, anicteric sclerae ENMT: external ear and nose normal, oropharynx normal Neck: normal visual inspection Respiratory: normal respiratory effort; no respiratory distress Auscultat ion: lungs clear to auscultation bilaterally; no crackles, no rales and no wheezes Cardiovascular: Rate/Rhythm: + tachycardic and + irregularly irregular Vessels: posterior tibial pulses present, dorsalis pedis pulses present and radial pulses present; no JVD Gastrointestinal (Abdomen): normal bowel sounds, soft, nontender, no hepatosplenomegaly Neurologic: moves all extremities Motor/Sensory: + tremor (L>R b/l upper extremity) Lymphatic: no cervical or axillary lymphadenopathy Results & Data ([facility]) Vital Signs (Past 12 Hours) Vital Signs Temp Pulse Pulse Pulse Resp BP BP 07/20/19 09:22 120 H 07/20/19 07:29 37.3 C 108 H 19 121/69 07/20/19 04:08 36.9 C 65 18 99/64 L 07/20/19 02:21 62 07/20/19 01:50 36.8 C 64 18 92/56 L 07/20/19 01:06 102 H 23 105/78 07/20/19 01:03 131 H 108/73 07/20/19 01:02 115 H 24 108/73 07/20/19 01:00 144 H 22 104/81 07/20/19 00:30 65 22 104/68 07/20/19 00:00 65 22 91/64 L 07/19/19 23:45 66 24 104/70 07/19/19 23:30 65 18 103/73 07/19/19 23:15 65 21 114/78 07/19/19 23:00 64 24 96/67 L 07/19/19 22:45 64 24 91/71 L 07/19/19 22:30 65 22 95/66 L 07/19/19 22:15 65 22 93/78 L 07/19/19 22:00 66 22 118/73 07/19/19 21:45 65 22 95/72 L Pulse Ox 07/20/19 09:22 07/20/19 07:29 07/20/19 04:08 95 07/20/19 02:21 07/20/19 01:50 94 07/20/19 01:06 96 07/20/19 01:03 07/20/19 01:02 94 07/20/19 01:00 97 07/20/19 00:30 95 07/20/19 00:00 93 07/19/19 23:45 93 07/19/19 23:30 95 07/19/19 23:15 95 07/19/19 23:00 95 07/19/19 22:45 94 07/19/19 22:30 94 07/19/19 22:15 94 07/19/19 22:00 94 07/19/19 21:45 95 Laboratory Results 07/20/19 07/20/19 07/20/19 Range/Units 02:19 02:19 00:48 WBC 6.78 (4.8-10.8) K/uL RBC 3.84 L (4.7-6.1) M/uL Hgb 11.5 L (14.0-18.0) g/dL Hct 36.0 L (42-52) % MCV 93.8 (80-100) fL MCH 29.9 (25-34) pg MCHC 31.9 L (32-36) g/dL RDW Std Deviation 51.3 H (36.4-46.3) fL RDW Coeff of Nicki 15.0 H (11.5-14.5) % Plt Count 154 (130-400) K/uL MPV 10.7 H (7.4-10.4) fL Immature Gran % (Auto) 0.1 % Neut % (Auto) 72.7 % Lymph % (Auto) 14.0 % Berks % (Auto) 12.7 % Eos % (Auto) 0.1 % Baso % (Auto) 0.4 % Immature Gran # (Auto) 0.01 (0.00-0.02) K/uL Neut # (Auto) 4.92 (1.4-6.5) K/uL Lymph # (Auto) 0.95 L (1.2-3.4) K/uL Berks # (Auto) 0.86 H (0.11-0.59) K/uL Eos # (Auto) 0.01 (0-0.5) K/uL Baso # (Auto) 0.03 (0-0.2) K/uL PT (9.0-12.0) Seconds INR (0.9-1.1) APTT (21.0-31.0) Seconds PTT Ratio Sodium 137 (136-145) mmol/L Potassium 3.9 (3.5-5.1) mmol/L Chloride 104 (98-107) mmol/L Carbon Dioxide 27 (21-32) mmol/L Anion Gap 6.0 (3-11) BUN 55 H (7-18) mg/dl Creatinine 1.85 H (0.6-1.4) mg/dl Est Cr Clr Drug Dosing 30.9 Est GFR ( Amer) 37.1 Est GFR (Non-Af Amer) 32.0 BUN/Creatinine Ratio 29.5 H (10-20) Glucose 112 H (70-99) mg/dl Calcium 7.7 L (8.5-10.1) mg/dl Phosphorus 4.2 (2.5-4.9) mg/dl Magnesium 2.3 (1.8-2.4) mg/dl Total Bilirubin (0.2-1) mg/dl AST (15-37) U/L ALT (12-78) U/L Alkaline Phosphatase (45-117) U/L Troponin I 0.234 H* 0.268 H* (0-0.045) ng/ml Total Protein (6.4-8.2) gm/dl Albumin (3.4-5.0) gm/dl Globulin (2.5-4.0) gm/dl Albumin/Globulin Ratio (0.9-2) 07/19/19 07/19/19 07/19/19 Range/Units 18:15 18:15 18:15 WBC 8.79 (4.8-10.8) K/uL RBC 4.35 L (4.7-6.1) M/uL Hgb 13.2 L (14.0-18.0) g/dL Hct 40.2 L (42-52) % MCV 92.4 (80-100) fL MCH 30.3 (25-34) pg MCHC 32.8 (32-36) g/dL RDW Std Deviation 50.4 H (36.4-46.3) fL RDW Coeff of Nicki 14.9 H (11.5-14.5) % Plt Count 164 (130-400) K/uL MPV 10.1 (7.4-10.4) fL Immature Gran % (Auto) 0.1 % Neut % (Auto) 74.4 % Lymph % (Auto) 7.4 % Berks % (Auto) 17.9 % Eos % (Auto) 0.0 % Baso % (Auto) 0.2 % Immature Gran # (Auto) 0.01 (0.00-0.02) K/uL Neut # (Auto) 6.54 H (1.4-6.5) K/uL Lymph # (Auto) 0.65 L (1.2-3.4) K/uL Berks # (Auto) 1.57 H (0.11-0.59) K/uL Eos # (Auto) 0.00 (0-0.5) K/uL Baso # (Auto) 0.02 (0-0.2) K/uL PT 11.4 (9.0-12.0) Seconds INR 1.1 (0.9-1.1) APTT 31.0 (21.0-31.0) Seconds PTT Ratio 1.1 Sodium 134 L (136-145) mmol/L Potassium 3.8 (3.5-5.1) mmol/L Chloride 101 (98-107) mmol/L Carbon Dioxide 23 (21-32) mmol/L Anion Gap 10.0 (3-11) BUN 54 H (7-18) mg/dl Creatinine 2.10 H (0.6-1.4) mg/dl Est Cr Clr Drug Dosing Not Reportable Est GFR ( Amer) 31.8 Est GFR (Non-Af Amer) 27.5 BUN/Creatinine Ratio 25.5 H (10-20) Glucose 133 H (70-99) mg/dl Calcium 8.6 (8.5-10.1) mg/dl Phosphorus (2.5-4.9) mg/dl Magnesium (1.8-2.4) mg/dl Total Bilirubin 0.7 (0.2-1) mg/dl AST 37 (15-37) U/L ALT 9 L (12-78) U/L Alkaline Phosphatase 59 (45-117) U/L Troponin I 0.490 H* (0-0.045) ng/ml Total Protein 7.2 (6.4-8.2) gm/dl Albumin 3.1 L (3.4-5.0) gm/dl Globulin 4.1 H (2.5-4.0) gm/dl Albumin/Globulin Ratio 0.8 L (0.9-2) Medications Administered Current Inpatient Medications Aspirin (Ecotrin Ectab) 81 mg PO DAILY@1300 [facility] Stop: 08/19/19 12:59 Carbidopa/Levodopa (Sinemet 25/100 Mg) 2 tab PO QID [facility] Stop: 08/19/19 08:59 Last Admin: 07/20/19 08:27 Dose: 2 tab Documented by: Cyanocobalamin (Vitamin B-12) 1,000 mcg PO DAILY@1300 [facility] Stop: 08/19/19 12:59 Donepezil HCl (Aricept) 5 mg PO QAM [facility] Stop: 08/19/19 08:59 Last Admin: 07/20/19 08:25 Dose: Not Given Documented by: Folic Acid (Folvite) 1 mg PO DAILY@1300 [facility] Stop: 08/19/19 12:59 Hydrochlorothiazide (Hctz) 12.5 mg PO QAM [facility] Stop: 08/19/19 08:59 Last Admin: 07/20/19 08:26 Dose: 12.5 mg Documented by: Potassium Chloride/Sodium Chloride (Normal Saline W/20 Meq Kcl) 20 meq in 1,000 mls @ 80 mls/hr IV .[id number] [facility] Stop: 07/20/19 14:19 Last Admin: 07/20/19 02:26 Dose: 80 mls/hr Documented by: Metoprolol Succinate (Toprol Xl) 25 mg PO DAILY@0500 [facility] Stop: 08/20/19 04:59 Miscellaneous (Order Awaiting Action) 1 ea N/A QS [facility] Stop: 08/19/19 07:59 Last Admin: 07/20/19 08:06 Dose: Not Given Documented by: Nitroglycerin (Nitrostat) 0.4 mg SL Q5M PRN PRN Reason: chest pain Stop: 08/19/19 01:49 Pantoprazole Sodium (Protonix) 40 mg PO DAILY [facility] Stop: 08/19/19 08:59 Last Admin: 07/20/19 08:27 Dose: 40 mg Documented by: Polyethylene Glycol (Miralax Powder Packet) 17 gm PO DAILY PRN PRN Reason: constipation Stop: 08/19/19 01:49 Venlafaxine HCl (Effexor Extended Release) 150 mg PO DAILY@1300 [facility] Stop: 08/19/19 12:59 Vitamin D (Vitamin D3) 1,000 units PO DAILY@1300 [facility] Stop: 08/19/19 12:59 PG Care Time/CCT Total # of Minutes Spent Total Time Spent with Patient: Total time spent is greater than 50% in coordination of care (as documented) at patient's floor/unit and/or counseling patient: Coding Level of Care Code 27647 Initial Inpt Care Lvl 3 Diagnoses Atrial flutter with rapid ventricular response I48.92 Resident Activity Tracking Resident Involvement: Resident Care Provided Care Provided: Adult Hospital Medicine (Cardiology)
[2019-07-20] MEDS ORDERED: AMIODARONE IV BOLUS & DRIP IV STA (11:14)
[2019-07-20] MEDS ORDERED: AMIODARONE / D5W 150 MG/100 ML BAG IV STA (11:14)
[2019-07-20] MEDS ORDERED: 0.2 MICRON FILTER SET 1 EA IV ONE (11:14)
[2019-07-20] MEDS ORDERED: STAT IV Infusion **Titration per Protocol STA (11:14)
--- NOTE | 2019-07-20 12:20 | XCELERA ---
[id number]
[2019-07-20] MEDS: AMIODARONE 450 MG in D5W 250ML IN *POLYOLEFIN BAG* 241 ML IV SCH ×2 (12:45→20:07)
[2019-07-20] MEDS: VENLAFAXINE HCL XR 150 MG CAPXR PO SCH (12:58)
[2019-07-20] MEDS: CYANOCOBALAMIN 500 MCG TABLET (VITAMIN B-12) PO SCH (12:58)
[2019-07-20] MEDS: FOLIC ACID 1 MG TAB PO SCH (12:58)
[2019-07-20] MEDS: ASPIRIN 81 MG ECTAB PO SCH (12:58)
[2019-07-20] MEDS: CHOLECALCIFEROL 1,000 UNITS 25 MCG TAB PO SCH (12:59)
--- NOTE | 2019-07-20 13:20 | Electrocardiogram Report ---
Test Reason : Blood Pressure : / mmHG Vent. Rate : 142 BPM Atrial Rate : 330 BPM P-R Int : 000 ms QRS Dur : 086 ms QT Int : 318 ms P-R-T Axes : 000 -08 084 degrees QTc Int : 489 ms Poor data quality, interpretation may be adversely affected Atrial fibrillation with rapid ventricular response Nonspecific ST and T wave abnormality Abnormal ECG When compared with ECG of 12-JAN-2019 11:22, Atrial fibrillation has replaced Sinus rhythm Vent. rate has increased BY 77 BPM Confirmed by Jatin Segura ([id number]) on 07/20/2019 1:20:20 PM Referred By: REFERRED SELF Confirmed By:Jatin Segura
--- NOTE | 2019-07-20 14:09 | Electrocardiogram Report ---
Test Reason : Blood Pressure : / mmHG Vent. Rate : 067 BPM Atrial Rate : 067 BPM P-R Int : 182 ms QRS Dur : 096 ms QT Int : 430 ms P-R-T Axes : 059 -03 104 degrees QTc Int : 454 ms Normal sinus rhythm Nonspecific ST and T wave abnormality Abnormal ECG When compared with ECG of 19-JUL-2019 18:00, (unconfirmed) Sinus rhythm has replaced Atrial flutter Vent. rate has decreased BY 75 BPM Confirmed by Jatin Segura ([id number]) on 07/20/2019 2:09:02 PM Referred By: REFERRED SELF Confirmed By:Jatin Segura
--- NOTE | 2019-07-20 14:20 | Electrocardiogram Report ---
Test Reason : Blood Pressure : / mmHG Vent. Rate : 057 BPM Atrial Rate : 057 BPM P-R Int : 180 ms QRS Dur : 090 ms QT Int : 394 ms P-R-T Axes : 023 -02 101 degrees QTc Int : 383 ms Sinus bradycardia Poor R wave progression, consider anterior MN vs. lead placement vs. LVH Abnormal ECG When compared with ECG of 20-JUL-2019 00:57, (unconfirmed) Sinus rhythm has replaced Atrial fibrillation Vent. rate has decreased BY 53 BPM QT has shortened Confirmed by Jatin Segura ([id number]) on 07/20/2019 2:20:06 PM Referred By: REFERRED SELF Confirmed By:Jatin Segura
--- NOTE | 2019-07-20 14:20 | Electrocardiogram Report ---
Test Reason : Blood Pressure : / mmHG Vent. Rate : 110 BPM Atrial Rate : 122 BPM P-R Int : 000 ms QRS Dur : 098 ms QT Int : 368 ms P-R-T Axes : 000 -01 106 degrees QTc Int : 498 ms Atrial fibrillation with rapid ventricular response Poor R wave progression, consider anterior TN vs. lead placement vs. LVH Abnormal ECG When compared with ECG of 19-JUL-2019 20:49, (unconfirmed) Atrial fibrillation has replaced Sinus rhythm Vent. rate has increased BY 43 BPM Confirmed by Jatin Segura ([id number]) on 07/20/2019 2:19:44 PM Referred By: REFERRED SELF Confirmed By:Jatin Segura
--- NOTE | 2019-07-20 16:42 | Hospitalist Progress Note ---
Date of Service July 20, 2019 Assessment & Plan (1) Atrial fibrillation/flutter: Paroxysmal atrial fibrillation & flutter. Rates up to 150, then drops into sinus in the 60s. - Appreciate cardiology recommendations. - Attempting rhythm control with amiodarone. - Also on beta-latricia for rate control - Hold anticoagulation for concern for falls. (2) Parkinsons disease: Follows with Dr. Costello. - Continue Carbidopa/Levodopa 25/100mg x2 QID - Stop donepezil per neurology recs - Will get brain MRI for right-sided listing and weakness. - Appreciate neurology recommendations. (3) KRZYSZTOF (acute kidney injury): Baseline Cr is ~1.5, eGFR 40. CKD Stage III. - On presentation, Cr up to 2.1, likely pre-renal. - Hold HCTZ; continue IV fluids (4) Dysphagia: Seen by ELECTRONICS ENGINEERING PROFESSOR with concern for aspiration. - Now on minced and moist diet (5) Hypertension: Presently normotensive. - Hold HCTZ for dehydration concern. - Continue beta-latricia (6) DVT prophylaxis: Heparin 5000 units SQ BID Admission and Anticipated Discharge Date Admission Date: July 20, 2019 Subjective Doing better today. Weak. Reports no fevers/chills, chest pain, shortness of breath, abdominal pain, nausea, or vomiting. Physical Exam Constitutional: WD/WN, vitals as above Eyes: EOM intact bilaterally; no conjunctival abnormality ENMT: external ear and nose normal, oropharynx normal Neck: trachea midline, no thyromegaly normal visual inspection Respiratory: normal respiratory effort, lungs clear to auscultation no respiratory distress Cardiovascular: RRR, no murmur, no edema Gastrointestinal (Abdomen): Inspection/Auscultation: abdomen normal to inspection; abdomen not distended Musculoskeletal: no cyanosis or clubbing, extremities motor strength 5/5 Skin: no rashes, warm and dry Neurologic: moves all extremities and awake Psychiatric: Orientation: alert, oriented to person and cooperative Results & Data Results & Data ([facility]) Vital Signs (Past 12 Hours) Vital Signs Temp Pulse Pulse Resp BP BP Pulse Ox 07/20/19 16:12 36.5 C 99 H 18 119/82 92 07/20/19 14:48 71 07/20/19 13:30 109/71 07/20/19 13:00 116/79 07/20/19 12:54 73 88/55 L 94 07/20/19 12:35 36.5 C 145 H 18 92/65 L 92 07/20/19 11:22 36.6 C 124 H 20 97/64 L 91 07/20/19 10:06 145 H 07/20/19 09:44 78 07/20/19 09:22 120 H 07/20/19 08:00 111 H 07/20/19 07:29 37.3 C 108 H 19 121/69 PG Care Time/CCT Total # of Minutes Spent Total Time Spent with Patient: Total time spent is greater than 50% in coordination of care (as documented) at patient's floor/unit and/or counseling patient: Coding Level of Care Code 03078 Subseq Hosp Care Lvl 3 Diagnoses Atrial fibrillation/flutter I48.91; I48.92 Parkinsons disease G20 KRZYSZTOF (acute kidney injury) N17.9 Dysphagia R13.10 Hypertension I10 DVT prophylaxis Z29.9
[2019-07-20] MEDS ORDERED: AMIODARONE RATE CHANGE ONE (17:14)
--- NOTE | 2019-07-20 17:59 | Magnetic Resonance Report ---
MR brain wo con HISTORY: 88 years-old Male Concern for stroke acute strokelike symptoms COMPARISON: Head CT 01/12/2019, brain MRI 12/12/2015 TECHNIQUE: Multiplanar multisequence MRI of the brain was obtained without the use of IV contrast. FINDINGS: Motion degraded exam. Shoe Clerk localizer images demonstrate no gross extracranial abnormality. Age-relat ed involutional changes with ex vacuo ventriculomegaly. There is no restricted diffusion to suggest a cute or subacute infarct. Midline structures including the corpus callosum, brainstem, optic chiasm, pituitary and pineal glands appear unremarkable the sagittal T1 series. No cerebellar tonsillar herni ation. Degenerative changes are noted involving the imaged cervical spine. Mild to moderate subcortical and periventricular T2/FLAIR hyperintensities are suggestive of chronic microvascular ischemic disease, less than expected in a patient of this age group. There is no acute intracranial hemorrhage, midline shift, abnormal extra-axial collection, hydrocephalus or intracrania l mass. The major vascular flow voids appear patent. Mastoid air cells are clear. Mild mucosal thicke angie of the ethmoid air cells and right frontal sinus. Skull and soft tissues are unremarkable. Prior bilateral lens replacement. IMPRESSION: Motion degraded exam without acute intracranial abnormality identified, specifically ther e is no evidence of acute or subacute infarct. ACT 112: Negative or not required by law. The above report was generated using voice recognition software. It may contain grammatical, syntax o r spelling errors. Electronically signed by: Thomas Canales M.D. 07/20/2019 5:57 PM
[2019-07-20] MEDS: MEMANTINE HCL 5 MG TAB PO SCH (21:40)
[2019-07-20] MEDS: HEPARIN SOD 5,000 UNIT/0.5 ML VIAL SQ SCH (21:40)
--- NOTE | 2019-07-21 00:55 | Billing Data ---
Date of Service July 21, 2019 Coding Level of Care Code 21407 Initial Inpt Care Lvl 3
[2019-07-21] MEDS ORDERED: METOPROLOL TARTRATE 1 MG/ML VIAL IV ONE (01:55)
[2019-07-21] MEDS ORDERED: METOPROLOL TARTRATE 1 MG/ML VIAL IV STA (01:55)
[2019-07-21] MEDS: METOPROLOL SUCC 25MG EXT REL TAB PO SCH (05:52)
[2019-07-21 07:01] LABS: Hematocrit (blood only) 34.8 % (42-52); Hemoglobin 11.3 g/dL (14.0-18.0); Mean Corpuscular Hemoglobin 29.8 pg (25-34); Mean Corpuscular Hgb Conc 32.5 g/dL (32-36); Mean Corpuscular Volume 91.8 fL (80-100); Mean Platelet Volume 10.3 fL (7.4-10.4); Platelet Count 162 K/uL (130-400); RDW Coefficient of Variation 15.1 % (11.5-14.5); RDW Standard Deviation 50.7 fL (36.4-46.3); Red Blood Count 3.79 M/uL (4.7-6.1); White Blood Count 10.77 K/uL (4.8-10.8)
[2019-07-21 07:34] LABS: BUN Creatinine Ratio 33.5 (10-20); Calcium 8.4 mg/dl (8.5-10.1); Creatinine Clr Calc Pharmacy 36.2 ml/min; Est GFR (African American) 44.9; Est GFR (Non-African American) 38.8; Magnesium 2.5 mg/dl (1.8-2.4); Potassium 3.2 mmol/L (3.5-5.1)
[2019-07-21 07:52] LABS: Thyroid Stimulating Hormone 3.48 uIu/ml (0.300-4.500)
[2019-07-21 08:03] LABS: Folate (Folic Acid) 23.57 ng/ml (>5.38)
--- NOTE | 2019-07-21 08:58 | Cardiology Progress Note ---
Date of Service July 21, 2019 Assessment & Plan (1) Atrial flutter with rapid ventricular response: Justin Marinelli is a 88 y/o M with PMH significant for Parkinson's disease, HTN, and GERD; who presented for evaluation of generalized weakness that started 5 days ago. In the ED he was found to be in Atrial fibrillation with rapid ventricular rate AFibrillation w/ RVR: - on presentation to the ED patient was found to be with HR between 120-150 - overnight received 5mg metoprolol tartrate IV - continued reversion into AFib with RVR - given patient's high risk for falls given baseline dementia and Parkinson's disease will hold anticoagulation - Echo demonstrated LVH, normal LV function, mild mitral regurgitation - continue 25mg metoprolol succinate PO BID - Amiodarone load approaching 24 hours at this time - continue amiodarone drip today, with conversion to 400mg PO BID for 10 days tomorrow if maintained NSR Admission and Anticipated Discharge Date Admission Date: July 20, 2019 Supervising Physician Co-Signing Physician Notes See my note under separate cover for 07/21/2019 recommendations. Subjective Overnight patient continued to toggle between normal sinus rhythm and AFib with RVR, requiring one time dose of Lopressor to be given IV which temporarily reverted him into sinus rhythm. Patient continues to have minimal meaningful verbal response to questions, smiles to questions but does not indicate that he has had any chest pain, dizziness, shortness of breath, or palpitations. Review of Systems Review of Systems: Unobtainable due to cognitive status Physical Exam Constitutional: + thin and + physical limitations; not diaphoretic and not lethargic Eyes: PERRL, conjunctivae normal, anicteric sclerae ENMT: external ear and nose normal, oropharynx normal Neck: normal visual inspection Respiratory: normal respiratory effort; no respiratory distress Auscultation: lungs clear to auscultation bilaterally; no crackles, no rales and no wheezes Cardiovascular: Rate/Rhythm: + tachycardic and + irregularly irregular Vessels: posterior tibial pulses present, dorsalis pedis pulses present and radial pulses present; no JVD Gastrointestinal (Abdomen): normal bowel sounds, soft, nontender, no hepatosplenomegaly Neurologic: moves all extremities Motor/Sensory: + tremor (L>R b/l upper extremity) Lymphatic: no cervical or axillary lymphadenopathy Results & Data ([facility]) Vital Signs (Past 12 Hours) Vital Signs Temp Pulse Pulse Resp BP BP Pulse Ox 07/21/19 08:00 36.3 C L 07/21/19 07:05 38 C H 71 14 144/85 H 91 07/21/19 07:01 100 H 07/21/19 04:26 37.2 C 109 H 16 122/91 90 07/21/19 03:17 134 H 121/70 07/21/19 00:00 36.4 C L 109 H 19 118/77 97 Laboratory Results 07/21/19 07/21/19 07/21/19 Range/Units 06:33 06:33 06:33 WBC (4.8-10.8) K/uL RBC (4.7-6.1) M/uL Hgb (14.0-18.0) g/dL Hct (42-52) % MCV (80-100) fL MCH (25-34) pg MCHC (32-36) g/dL RDW Std Deviation (36.4-46.3) fL RDW Coeff of Nicki (11.5-14.5) % Plt Count (130-400) K/uL MPV (7.4-10.4) fL ESR 35 H (0-14) mm/hr Sodium (136-145) mmol/L Potassium (3.5-5.1) mmol/L Chloride (98-107) mmol/L Carbon Dioxide (21-32) mmol/L Anion Gap (3-11) BUN (7-18) mg/dl Creatinine (0.6-1.4) mg/dl Est Cr Clr Drug Dosing ml/min Est GFR ( Amer) Est GFR (Non-Af Amer) BUN/Creatinine Ratio (10-20) Glucose (70-99) mg/dl Calcium (8.5-10.1) mg/dl Magnesium (1.8-2.4) mg/dl Total Creatine Kinase (39-308) U/L Aldolase Pending Vitamin B12 1852 H (211-911) pg/ml Folate 23.57 (>5.38) ng/ml TSH (0.300-4.500) uIu/ml 07/21/19 07/21/19 Range/Units 06:33 06:33 WBC 10.77 (4.8-10.8) K/uL RBC 3.79 L (4.7-6.1) M/uL Hgb 11.3 L (14.0-18.0) g/dL Hct 34.8 L (42-52) % MCV 91.8 (80-100) fL MCH 29.8 (25-34) pg MCHC 32.5 (32-36) g/dL RDW Std Deviation 50.7 H (36.4-46.3) fL RDW Coeff of Nicki 15.1 H (11.5-14.5) % Plt Count 162 (130-400) K/uL MPV 10.3 (7.4-10.4) fL ESR (0-14) mm/hr Sodium 137 (136-145) mmol/L Potassium 3.2 L D (3.5-5.1) mmol/L Chloride 105 (98-107) mmol/L Carbon Dioxide 21 (21-32) mmol/L Anion Gap 10.0 (3-11) BUN 53 H (7-18) mg/dl Creatinine 1.58 H (0.6-1.4) mg/dl Est Cr Clr Drug Dosing 36.2 ml/min Est GFR ( Amer) 44.9 Est GFR (Non-Af Amer) 38.8 BUN/Creatinine Ratio 33.5 H (10-20) Glucose 143 H (70-99) mg/dl Calcium 8.4 L (8.5-10.1) mg/dl Magnesium 2.5 H (1.8-2.4) mg/dl Total Creatine Kinase 1159 H (39-308) U/L Aldolase Vitamin B12 (211-911) pg/ml Folate (>5.38) ng/ml TSH 3.480 (0.300-4.500) uIu/ml Medications Administered Current Inpatient Medications Aspirin (Ecotrin Ectab) 81 mg PO DAILY@1300 [facility] Stop: 08/19/19 12:59 Last Admin: 07/20/19 12:58 Dose: 81 mg Documented by: Carbidopa/Levodopa (Sinemet 25/100 Mg) 2 tab PO QID [facility] Stop: 08/19/19 08:59 Last Admin: 07/20/19 21:40 Dose: 2 tab Documented by: Cyanocobalamin (Vitamin B-12) 1,000 mcg PO DAILY@1300 [facility] Stop: 08/19/19 12:59 Last Admin: 07/20/19 12:58 Dose: 1,000 mcg Documented by: Folic Acid (Folvite) 1 mg PO DAILY@1300 [facility] Stop: 08/19/19 12:59 Last Admin: 07/20/19 12:58 Dose: 1 mg Documented by: Heparin Sodium (Porcine) (Heparin Sodium (Porcine)) 5,000 units SQ Q12 [facility] Stop: 08/19/19 20:59 Last Admin: 07/20/19 21:40 Dose: 5,000 units Documented by: Amiodarone HCl 450 mg/ (Dextrose) 250 mls @ 33.333 mls/hr IV .Q7H30M [facility]; Protocol Stop: 08/19/19 11:44 Last Admin: 07/20/19 20:07 Dose: 0.5 mg/min, 16.7 mls/hr Documented by: Memantine (Namenda) 5 mg PO BID [facility] Stop: 08/19/19 20:59 Last Admin: 07/20/19 21:40 Dose: 5 mg Documented by: Metoprolol Succinate (Toprol Xl) 25 mg PO DAILY@0500 [facility] Stop: 08/20/19 04:59 Last Admin: 07/21/19 05:52 Dose: 25 mg Documented by: Miscellaneous (Order Awaiting Action) 1 ea N/A QS [facility] Stop: 08/19/19 07:59 Last Admin: 07/20/19 23:43 Dose: Not Given Documented by: Nitroglycerin (Nitrostat) 0.4 mg SL Q5M PRN PRN Reason: chest pain Stop: 08/19/19 01:49 Pantoprazole Sodium (Protonix) 40 mg PO DAILY [facility] Stop: 08/19/19 08:59 Last Admin: 07/20/19 08:27 Dose: 40 mg Documented by: Polyethylene Glycol (Miralax Powder Packet) 17 gm PO DAILY PRN PRN Reason: constipation Stop: 08/19/19 01:49 Venlafaxine HCl (Effexor Extended Release) 150 mg PO DAILY@1300 [facility] Stop: 08/19/19 12:59 Last Admin: 07/20/19 12:58 Dose: 150 mg Documented by: Vitamin D (Vitamin D3) 1,000 units PO DAILY@1300 [facility] Stop: 08/19/19 12:59 Last Admin: 07/20/19 12:59 Dose: 1,000 units Documented by: PG Care Time/CCT Total # of Minutes Spent Total Time Spent with Patient: Total time spent is greater than 50% in coordination of care (as documented) at patient's floor/unit and/or counseling patient: Coding Level of Care Code None Diagnoses Atrial flutter with rapid ventricular response I48.92 Resident Activity Tracking Resident Involvement: Resident Care Provided Care Provided: Adult Hospital Medicine (Cardiology)
[2019-07-21] MEDS: PANTOprazole 40 MG TAB PO SCH (09:02)
[2019-07-21] MEDS: TROSPIUM~ORDER AWAITING ACTION SCH ×2 (09:02→15:57)
[2019-07-21] MEDS: CARBIDOPA/LEVODOPA 25/100MG TAB PO SCH ×4 (09:03→20:15)
[2019-07-21] MEDS: MEMANTINE HCL 5 MG TAB PO SCH ×2 (09:03→20:15)
[2019-07-21] MEDS: HEPARIN SOD 5,000 UNIT/0.5 ML VIAL SQ SCH ×2 (09:04→20:15)
[2019-07-21] MEDS: AMIODARONE 450 MG in D5W 250ML IN *POLYOLEFIN BAG* 241 ML IV SCH ×3 (10:31→20:30)
--- NOTE | 2019-07-21 10:52 | Neurology Progress Note ---
Date of Service July 21, 2019 Assessment & Plan (1) Parkinsons disease: (2) Tremor: (3) Dementia: (4) Atrial fibrillation/flutter: (5) Orthostatic hypotension: (6) Weakness generalized: (7) Depression: Patient has a history of progressive Parkinson's disease of a moderate nature on a significant dose of carbidopa levodopa. On examination he has resting tremor left greater than right side, cogwheel rigidity of a moderate to significant nature diffusely, moderate bradykinesia in general, and a history of Parkinson's gait (gait was not tested today because of weakness). The patient has a postural and action tremor left greater than right side as well. He has a moderate dementia which is also progressive by history and is likely mixed aging/Parkinson's and vascular. Patient has a history of orthostatic hypotension which is likely secondary to carbidopa/levodopa. Cardiac dysrhythmia would contribute to this as well. He has been going in and out of atrial fibrillation/flutter since arriving at the emergency room. The patient has a history of depression which is stable on venlafaxine. The patient had some very mild right arm and leg weakness compared to the left. In addition he was leaning to the right consistently. These were not present today. MRI of the brain did not show any acute stroke but did show moderate old small vessel ischemic disease. Nevertheless, he is at risk for stroke with going in and out of atrial fibrillation. Cardiology feels that his risk factor for hemorrhage from falling is too great to initiated anticoagulant not sure necessarily agree with this. Recommendations: 1. Keep carbidopa/levodopa the same for now. 2. Physical and occupational therapy consults. Increase activity as able. 3. Keep often episodes continue Namenda 5 milligrams twice a day for dementia. This can be titrated as an outpatient. 4. Since his stroke risk is high flipping in and out of atrial fibrillation I would consider an oral anticoagulant and we would monitor him so he does not fall. 5. Keep venlafaxine the same. Overall, I spent a total of 25 minutes with this case including review of records, direct evaluation the patient at bedside, discussion of the case with the patient at bedside, RN at bedside, and Dr. Park, including differential diagnosis and treatment options. Admission and Anticipated Discharge Date Admission Date: July 20, 2019 Subjective No complaint of pain or headache. He is not dizzy and has no issues with chest pain or palpitations right now. Nursing reports no new events and he is not leaning to the right as much as he did before. MRI of the brain showed moderate atrophy and nonspecific small vessel ischemic disease but no acute stroke. I reviewed these films. Blood pressure is 144/85 and CBC and Chem profile were stable compared to yesterday. He stills an elevated BUN and creatinine. His CK is 1159 which may be muscular. B12, folate, and TSH were unremarkable. Currently the patient is in normal sinus rhythm by he has been going in and out of atrial fibrillation since admission. Results & Data ([facility]) Vital Signs (Past 12 Hours) Vital Signs Temp Pulse Pulse Resp BP BP Pulse Ox 07/21/19 08:00 36.3 C L 07/21/19 07:05 38 C H 71 14 144/85 H 91 07/21/19 07:01 100 H 07/21/19 04:26 37.2 C 109 H 16 122/91 90 07/21/19 03:17 134 H 121/70 07/21/19 00:00 36.4 C L 109 H 19 118/77 97 Exam (Neuro) Physical Exam: He is awake and alert. Speech is without aphasia or dysarthria although he is clearly demented and has poor memory. He is pleasant and cooperative had follows one-step commands. There is no obvious resting tremor this morning. He does have left greater than right posture and action tremor bilaterally and no overt ataxia. Strength is symmetrical and he has bradykinesia and rigidity as before. He has not leaning to the right and stance sitting in the chair is much better. PG Care Time/CCT Total # of Minutes Spent Total Time Spent with Patient: Total time spent is greater than 50% in coordination of care (as documented) at patient's floor/unit and/or counseling patient: Coding Level of Care Code 22632 Subseq Hosp Care Lvl 2 Diagnoses Parkinsons disease G20 Tremor R25.1 Dementia F03.90 Atrial fibrillation/flutter I48.91; I48.92 Orthostatic hypotension I95.1 Weakness generalized R53.1 Depression F32.9 Time Spent (min) 25
[2019-07-21] MEDS: ASPIRIN 81 MG ECTAB PO SCH (12:08)
[2019-07-21] MEDS: VENLAFAXINE HCL XR 150 MG CAPXR PO SCH (12:08)
[2019-07-21] MEDS: FOLIC ACID 1 MG TAB PO SCH (12:09)
[2019-07-21] MEDS: CHOLECALCIFEROL 1,000 UNITS 25 MCG TAB PO SCH (12:09)
[2019-07-21] MEDS: CYANOCOBALAMIN 500 MCG TABLET (VITAMIN B-12) PO SCH (12:09)
--- NOTE | 2019-07-21 12:09 | Cardiology Progress Note ---
Date of Service July 21, 2019 Assessment & Plan (1) Atrial fibrillation: (2) Hypokalemia: (3) Mitral insufficiency: (4) Hypertension: ASSESSMENT/PLAN: 1. Atrial fibrillation with rapid ventricular response: Amiodarone was initiated yesterday when seen by Dr. Segura. He continues to demonstrate paroxysmal atrial fibrillation. Hopefully he remains in sinus rhythm going forward. Rate-controlling medications appear to be limited due to occasional hypotension. Can continue with IV amiodarone today and transition to amiodarone 400 mg p.o. b.i.d. later this afternoon if remains in sinus rhythm or tomorrow morning. Would then load for a total of 10 days before reducing dose to 200 mg twice daily. Monitor TSH and transaminase levels while on amiodarone. Consider anticoagulation for stroke risk reduction. 2. Hypokalemia: Replete potassium as appropriate. Will defer to primary service. 3. Mitral regurgitation: Non severe. No intervention necessary or appropriate at this time. 4. Hypertension: Has a history of hypertension but has been hypotensive intermittently while here. This will limit the use of rate controlling medications, and therefore he is on amiodarone for his atrial fibrillation. 5. Disposition: Dr. Segura will return tomorrow to continue his cardiology care. Admission and Anticipated Discharge Date Admission Date: July 20, 2019 Subjective Patient was seen earlier this morning. Converted to sinus rhythm at 8:26 a.m.. Had no specific complaints. He denies chest pain or shortness of breath. He did not recall why he came to the hospital. He had no concerns or questions. Review of systems: As above. Physical Exam Physical Exam: Gen.: No acute distress. Alert and oriented to self, place and year. HEENT: Anicteric sclera. Neck: No JVD. Cardiac: PMI was nonpalpable. Regular rate and rhythm. Normal S1-S2. No murmurs, rubs, or gallops. Pulmonary: Clear to auscultation bilaterally without wheezes, rales, or rhonchi. Abdomen: Soft, nontender, nondistended, with normoactive bowel sounds. No bruits noted. Extremities: 2+ radial pulses bilaterally. No edema or cyanosis. Results & Data ([facility]) Vital Signs (Past 12 Hours) Vital Signs Temp Pulse Pulse Resp BP BP Pulse Ox 07/21/19 08:00 36.3 C L 07/21/19 07:05 38 C H 71 14 144/85 H 91 07/21/19 07:01 100 H 07/21/19 04:26 37.2 C 109 H 16 122/91 90 07/21/19 03:17 134 H 121/70 07/21/19 00:00 36.4 C L 109 H 19 118/77 97 Intake & Output 07/19/19 07/20/19 07/21/19 07/22/19 06:59 06:59 06:59 06:59 Intake Total 2150 / 2150 1440.687 / 1440.687 240.48 / 240.48 Output Total Balance 2149 / 2149 1435.687 / 1435.687 240.48 / 240.48 Weight 83.9 kg 83 kg Laboratory Results Laboratory Results - last 24 hr 07/21/19 07/21/19 07/21/19 06:33 06:33 06:33 WBC 10.77 RBC 3.79 L Hgb 11.3 L Hct 34.8 L MCV 91.8 MCH 29.8 MCHC 32.5 RDW Std Deviation 50.7 H RDW Coeff of Nicki 15.1 H Plt Count 162 MPV 10.3 ESR 35 H Sodium 137 Potassium 3.2 L D Chloride 105 Carbon Dioxide 21 Anion Gap 10.0 BUN 53 H Creatinine 1.58 H Est Cr Clr Drug Dosing 36.2 Est GFR ( Amer) 44.9 Est GFR (Non-Af Amer) 38.8 BUN/Creatinine Ratio 33.5 H Glucose 143 H Calcium 8.4 L Magnesium 2.5 H Total Creatine Kinase 1159 H Aldolase Vitamin B12 Folate TSH 3.480 07/21/19 07/21/19 06:33 06:33 WBC RBC Hgb Hct MCV MCH MCHC RDW Std Deviation RDW Coeff of Nicki Plt Count MPV ESR Sodium Potassium Chloride Carbon Dioxide Anion Gap BUN Creatinine Est Cr Clr Drug Dosing Est GFR ( Amer) Est GFR (Non-Af Amer) BUN/Creatinine Ratio Glucose Calcium Magnesium Total Creatine Kinase Aldolase Pending Vitamin B12 1852 H Folate 23.57 TSH Diagnostic Findings Telemetry personally reviewed: When seen earlier this morning, he was noted to be in sinus rhythm after converting from AFib at 8:26 a.m.. He had converted at other times intermittently over the past 24 hours, only to revert back into atrial fibrillation. Echo report reviewed from 07/20/2019: Normal LV systolic function and wall motion. EF 60-65%. Moderate MR. Medications Administered Current Inpatient Medications Aspirin (Ecotrin Ectab) 81 mg PO DAILY@1300 [facility] Stop: 08/19/19 12:59 Last Admin: 07/20/19 12:58 Dose: 81 mg Documented by: Carbidopa/Levodopa (Sinemet 25/100 Mg) 2 tab PO QID [facility] Stop: 08/19/19 08:59 Last Admin: 07/21/19 09:03 Dose: 2 tab Documented by: Cyanocobalamin (Vitamin B-12) 1,000 mcg PO DAILY@1300 [facility] Stop: 08/19/19 12:59 Last Admin: 07/20/19 12:58 Dose: 1,000 mcg Documented by: Folic Acid (Folvite) 1 mg PO DAILY@1300 [facility] Stop: 08/19/19 12:59 Last Admin: 07/20/19 12:58 Dose: 1 mg Documented by: Heparin Sodium (Porcine) (Heparin Sodium (Porcine)) 5,000 units SQ Q12 [facility] Stop: 08/19/19 20:59 Last Admin: 07/21/19 09:04 Dose: 5,000 units Documented by: Amiodarone HCl 450 mg/ (Dextrose) 250 mls @ 33.333 mls/hr IV .Q7H30M [facility]; Protocol Stop: 08/19/19 11:44 Last Admin: 07/21/19 10:31 Dose: 0.5 mg/min, 16.7 mls/hr Documented by: Memantine (Namenda) 5 mg PO BID [facility] Stop: 08/19/19 20:59 Last Admin: 07/21/19 09:03 Dose: 5 mg Documented by: Metoprolol Succinate (Toprol Xl) 25 mg PO DAILY@0500 [facility] Stop: 08/20/19 04:59 Last Admin: 07/21/19 05:52 Dose: 25 mg Documented by: Miscellaneous (Order Awaiting Action) 1 ea N/A QS [facility] Stop: 08/19/19 07:59 Last Admin: 07/21/19 09:02 Dose: Not Given Documented by: Nitroglycerin (Nitrostat) 0.4 mg SL Q5M PRN PRN Reason: chest pain Stop: 08/19/19 01:49 Pantoprazole Sodium (Protonix) 40 mg PO DAILY [facility] Stop: 08/19/19 08:59 Last Admin: 07/21/19 09:02 Dose: 40 mg Documented by: Polyethylene Glycol (Miralax Powder Packet) 17 gm PO DAILY PRN PRN Reason: constipation Stop: 08/19/19 01:49 Venlafaxine HCl (Effexor Extended Release) 150 mg PO DAILY@1300 [facility] Stop: 08/19/19 12:59 Last Admin: 07/20/19 12:58 Dose: 150 mg Documented by: Vitamin D (Vitamin D3) 1,000 units PO DAILY@1300 [facility] Stop: 08/19/19 12:59 Last Admin: 07/20/19 12:59 Dose: 1,000 units Documented by: PG Care Time/CCT Total # of Minutes Spent Total Time Spent with Patient: Total time spent is greater than 50% in coordination of care (as documented) at patient's floor/unit and/or counseling patient: Coding Level of Care Code 09009 Subseq Hosp Care Lvl 3 Diagnoses Atrial fibrillation I48.91 Hypokalemia E87.6 Mitral insufficiency I34.0 Hypertension I10
--- NOTE | 2019-07-21 14:30 | Hospitalist Progress Note ---
Date of Service July 21, 2019 Assessment & Plan (1) Atrial fibrillation/flutter: Paroxysmal atrial fibrillation & flutter. Rates up to 150, then drops into sinus in the 60s. - Appreciate cardiology recommendations. - Attempting rhythm control with amiodarone. - Also on beta-latricia for rate control - Neurology and cardiology both in agreement to trial anticoagulation. Chads- Vasc is 3, giving him a 3% annual risk of stroke. (2) Parkinsons disease: Follows with Dr. Costello. - Continue Carbidopa/Levodopa 25/100mg x2 QID - Stop donepezil per neurology recs; started Namenda 5 mg PO BID. - Son, Shadi, reports he does seem like he was weaker after his AM meds, so possibly donepezil playing a role. - Brain MRI on 07/19 was negative for stroke. - Appreciate neurology recommendations. (3) KRZYSZTOF (acute kidney injury): Baseline Cr is ~1.5, eGFR 40. CKD Stage III. - On presentation, Cr up to 2.1, likely pre-renal. - Hold HCTZ; now back to baseline by 07/20. (4) Dysphagia: Seen by [employer]IAN with concern for aspiration. - Now on minced and moist diet (5) Hypertension: Presently normotensive. - Hold HCTZ for dehydration concern. - Continue beta-latricia (6) DVT prophylaxis: Heparin 5000 units SQ BID Admission and Anticipated Discharge Date Admission Date: July 20, 2019 Subjective Doing well today. Does not note palpitations overall. No chest pain. Reports no fevers/chills, chest pain, shortness of breath, abdominal pain, nausea, or vomiting. Physical Exam Constitutional: WD/WN, vitals as above Eyes: EOM intact bilaterally; no conjunctival abnormality ENMT: external ear and nose normal, oropharynx normal Neck: trachea midline, no thyromegaly normal visual inspection Respiratory: normal respiratory effort, lungs clear to auscultation no respiratory distress Cardiovascular: RRR, no murmur, no edema Gastrointestinal (Abdomen): Inspection/Auscultation: abdomen normal to inspection; abdomen not distended Musculoskeletal: no cyanosis or clubbing, extremities motor strength 5/5 Skin: no rashes, warm and dry Neurologic: moves all extremities and awake Psychiatric: Orientation: alert, oriented to person and cooperative Results & Data Results & Data ([facility]) Vital Signs (Past 12 Hours) Vital Signs Temp Pulse Pulse Resp BP BP Pulse Ox 07/21/19 12:17 37.1 C 95 H 20 97/64 L 93 07/21/19 08:00 36.3 C L 07/21/19 07:05 38 C H 71 14 144/85 H 91 07/21/19 07:01 100 H 07/21/19 04:26 37.2 C 109 H 16 122/91 90 07/21/19 03:17 134 H 121/70 PG Care Time/CCT Total # of Minutes Spent Total Time Spent with Patient: Total time spent is greater than 50% in coordination of care (as documented) at patient's floor/unit and/or counseling patient: Coding Level of Care Code 42567 Subseq Hosp Care Lvl 2 Diagnoses Atrial fibrillation/flutter I48.91; I48.92 Parkinsons disease G20 KRZYSZTOF (acute kidney injury) N17.9 Dysphagia R13.10 Hypertension I10 DVT prophylaxis Z29.9
[2019-07-21] MEDS: POTASSIUM CHLORIDE 10 MEQ TABCR PO SCH ×2 (16:08→20:15)
[2019-07-21] MEDS: AMIODARONE 200 MG TAB PO SCH (17:03)
[2019-07-22] MEDS: TROSPIUM~ORDER AWAITING ACTION SCH ×3 (02:36→16:59)
[2019-07-22] MEDS: METOPROLOL SUCC 25MG EXT REL TAB PO SCH (06:08)
[2019-07-22 06:33] LABS: Hematocrit (blood only) 34.7 % (42-52); Hemoglobin 11.2 g/dL (14.0-18.0); Mean Corpuscular Hemoglobin 29.9 pg (25-34); Mean Corpuscular Hgb Conc 32.3 g/dL (32-36); Mean Corpuscular Volume 92.8 fL (80-100); Platelet Count 170 K/uL (130-400); RDW Standard Deviation 51.2 fL (36.4-46.3); Red Blood Count 3.74 M/uL (4.7-6.1); White Blood Count 10.27 K/uL (4.8-10.8)
[2019-07-22 07:07] LABS: BUN Creatinine Ratio 34.8 (10-20); Calcium 8.4 mg/dl (8.5-10.1); Creatinine Clr Calc Pharmacy 37.3 ml/min; Est GFR (African American) 46.7; Est GFR (Non-African American) 40.3; Magnesium 2.7 mg/dl (1.8-2.4); Potassium 3.9 mmol/L (3.5-5.1)
[2019-07-22] MEDS: CARBIDOPA/LEVODOPA 25/100MG TAB PO SCH ×4 (08:24→20:14)
[2019-07-22] MEDS: HEPARIN SOD 5,000 UNIT/0.5 ML VIAL SQ SCH ×2 (08:25→20:14)
[2019-07-22] MEDS: PANTOprazole 40 MG TAB PO SCH (08:25)
[2019-07-22] MEDS: AMIODARONE 200 MG TAB PO SCH ×2 (08:26→16:59)
[2019-07-22] MEDS: MEMANTINE HCL 5 MG TAB PO SCH ×2 (08:26→20:14)
--- NOTE | 2019-07-22 09:29 | Cardiology Progress Note ---
Date of Service July 22, 2019 Assessment & Plan (1) Atrial flutter with rapid ventricular response: Justin Marinelli is a 88 y/o M with PMH significant for Parkinson's disease, HTN, and GERD; who presented for evaluation of generalized weakness that started 5 days ago. In the ED he was found to be in Atrial fibrillation with rapid ventricular rate AFibrillation w/ RVR: - on presentation to the ED patient was found to be with HR between 120-150 - overnight received 5mg metoprolol tartrate IV - continued reversion into AFib with RVR - patient is at high risk for falls, given baseline dementia, history of numerous falls, and Parkinson's disease; advise holding of anticoagulation - Echo demonstrated LVH, normal LV function, mild mitral regurgitation - continue 25mg metoprolol succinate PO BID - continue Amiodarone 400mg BID until discharge and then switch to 200mg BID Admission and Anticipated Discharge Date Admission Date: July 20, 2019 Supervising Physician Co-Signing Physician Notes Patient seen and examined with Dr. Davis. Agree with his assessment and plan. Subjective Patient overnight remained in sinus rhythm, with one episode of tachycardia. Remains pleasantly responsive but unaware of why reason he is in the hospital. Denies chest pain/discomfort, palpitations, nausea, vomiting, diaphoresis. Review of Systems Review of Systems: All systems reviewed & are unremarkable except as noted in Subjective Physical Exam Constitutional: + thin and + physical limitations; not diaphoretic and not lethargic Eyes: PERRL, conjunctivae normal, anicteric sclerae ENMT: external ear and nose normal, oropharynx normal Neck: normal visual inspection Respiratory: normal respiratory effort; no respiratory distress Auscultation: lungs clear to auscultation bilaterally; no crackles, no rales and no wheezes Cardiovascular: Rate/Rhythm: regular rate and regular rhythm Vessels: posterior tibial pulses present, dorsalis pedis pulses present and radial pulses present; no JVD Gastrointestinal (Abdomen): normal bowel sounds, soft, nontender, no hepatosplenomegaly Neurologic: moves all extremities Motor/Sensory: + tremor (L>R b/l upper extremity) Lymphatic: no cervical or axillary lymphadenopathy Results & Data ([facility]) Vital Signs (Past 12 Hours) Vital Signs Temp Pulse Resp BP Pulse Ox 07/22/19 07:01 36.5 C 68 16 101/51 L 91 07/22/19 04:04 36.8 C 107 H 14 130/80 90 07/21/19 23:20 36.5 C 68 16 117/72 93 Laboratory Results 07/22/19 07/22/19 Range/Units 05:54 05:54 WBC 10.27 (4.8-10.8) K/uL RBC 3.74 L (4.7-6.1) M/uL Hgb 11.2 L (14.0-18.0) g/dL Hct 34.7 L (42-52) % MCV 92.8 (80-100) fL MCH 29.9 (25-34) pg MCHC 32.3 (32-36) g/dL RDW Std Deviation 51.2 H (36.4-46.3) fL RDW Coeff of Nicki 15.0 H (11.5-14.5) % Plt Count 170 (130-400) K/uL MPV 11.0 H (7.4-10.4) fL Sodium 138 (136-145) mmol/L Potassium 3.9 D (3.5-5.1) mmol/L Chloride 108 H (98-107) mmol/L Carbon Dioxide 25 (21-32) mmol/L Anion Gap 6.0 (3-11) BUN 53 H (7-18) mg/dl Creatinine 1.53 H (0.6-1.4) mg/dl Est Cr Clr Drug Dosing 37.3 ml/min Est GFR ( Amer) 46.7 Est GFR (Non-Af Amer) 40.3 BUN/Creatinine Ratio 34.8 H (10-20) Glucose 119 H (70-99) mg/dl Calcium 8.4 L (8.5-10.1) mg/dl Magnesium 2.7 H (1.8-2.4) mg/dl Medications Administered Current Inpatient Medications Amiodarone HCl (Cordarone) 400 mg PO BIDM [facility]; Taper Stop: 08/31/19 09:59 Last Admin: 07/22/19 08:26 Dose: 400 mg Documented by: Aspirin (Ecotrin Ectab) 81 mg PO DAILY@1300 [facility] Stop: 08/19/19 12:59 Last Admin: 07/21/19 12:08 Dose: 81 mg Documented by: Carbidopa/Levodopa (Sinemet 25/100 Mg) 2 tab PO QID [facility] Stop: 08/19/19 08:59 Last Admin: 07/22/19 08:24 Dose: 2 tab Documented by: Cyanocobalamin (Vitamin B-12) 1,000 mcg PO DAILY@1300 [facility] Stop: 08/19/19 12:59 Last Admin: 07/21/19 12:09 Dose: Not Given Documented by: Folic Acid (Folvite) 1 mg PO DAILY@1300 [facility] Stop: 08/19/19 12:59 Last Admin: 07/21/19 12:09 Dose: 1 mg Documented by: Heparin Sodium (Porcine) (Heparin Sodium (Porcine)) 5,000 units SQ Q12 [facility] Stop: 08/19/19 20:59 Last Admin: 07/22/19 08:25 Dose: 5,000 units Documented by: Memantine (Namenda) 5 mg PO BID [facility] Stop: 08/19/19 20:59 Last Admin: 07/22/19 08:26 Dose: 5 mg Documented by: Metoprolol Succinate (Toprol Xl) 25 mg PO DAILY@0500 [facility] Stop: 08/20/19 04:59 Last Admin: 07/22/19 06:08 Dose: 25 mg Documented by: Miscellaneous (Order Awaiting Action) 1 ea N/A QS [facility] Stop: 08/19/19 07:59 Last Admin: 07/22/19 08:25 Dose: Not Given Documented by: Nitroglycerin (Nitrostat) 0.4 mg SL Q5M PRN PRN Reason: chest pain Stop: 08/19/19 01:49 Pantoprazole Sodium (Protonix) 40 mg PO DAILY [facility] Stop: 08/19/19 08:59 Last Admin: 07/22/19 08:25 Dose: 40 mg Documented by: Polyethylene Glycol (Miralax Powder Packet) 17 gm PO DAILY PRN PRN Reason: constipation Stop: 08/19/19 01:49 Venlafaxine HCl (Effexor Extended Release) 150 mg PO DAILY@1300 [facility] Stop: 08/19/19 12:59 Last Admin: 07/21/19 12:08 Dose: 150 mg Documented by: Vitamin D (Vitamin D3) 1,000 units PO DAILY@1300 [facility] Stop: 08/19/19 12:59 Last Admin: 07/21/19 12:09 Dose: 1,000 units Documented by: PG Care Time/CCT Total # of Minutes Spent Total Time Spent with Patient: Total time spent is greater than 50% in coordination of care (as documented) at patient's floor/unit and/or counseling patient: Coding Level of Care Code 80579 Subseq Hosp Care Lvl 3 Diagnoses Atrial flutter with rapid ventricular response I48.92 Resident Activity Tracking Resident Involvement: Resident Care Provided Care Provided: Adult Hospital Medicine (Cardiology)
[2019-07-22] MEDS: CYANOCOBALAMIN 500 MCG TABLET (VITAMIN B-12) PO SCH (12:19)
[2019-07-22] MEDS: CHOLECALCIFEROL 1,000 UNITS 25 MCG TAB PO SCH (12:19)
[2019-07-22] MEDS: VENLAFAXINE HCL XR 150 MG CAPXR PO SCH (12:20)
[2019-07-22] MEDS: ASPIRIN 81 MG ECTAB PO SCH (12:20)
[2019-07-22] MEDS: FOLIC ACID 1 MG TAB PO SCH (12:20)
--- NOTE | 2019-07-22 15:28 | Hospitalist Progress Note ---
Date of Service July 22, 2019 Assessment & Plan (1) Atrial fibrillation/flutter: Paroxysmal atrial fibrillation & flutter. Rates up to 150, then drops into sinus in the 60s. - Appreciate cardiology recommendations. - Switched over to normal sinus on 07/20 with only 1 short run of afib on 07/21. - Discharge on oral amiodarone. - Also on beta-latricia for rate control - Neurology and cardiology both in agreement to trial anticoagulation. Chads- Vasc is 3, giving him a 3% annual risk of stroke. However, family (discussed on the phone with multiple sons) feel that 3% is an acceptable risk per year and that he poses too big a fall risk. Patient is in agreement and declines. (2) Parkinsons disease: Follows with Dr. Costello. - Continue Carbidopa/Levodopa 25/100mg x2 QID - Stop donepezil per neurology recs; started Namenda 5 mg PO BID. - Son, Shadi, reports he does seem like he was weaker after his AM meds, so possibly donepezil playing a role. - Brain MRI on 07/19 was negative for stroke. - Appreciate neurology recommendations. (3) KRZYSZTOF (acute kidney injury): Baseline Cr is ~1.5, eGFR 40. CKD Stage III. - On presentation, Cr up to 2.1, likely pre-renal. - Hold HCTZ; now back to baseline by 07/20. (4) Dysphagia: Seen by [facility]PER[employer]ENDENT with concern for aspiration. - Now on minced and moist diet -> Doing well with it. Tolerating well. (5) Hypertension: Presently normotensive. BP 106/70. - Hold HCTZ for dehydration concern. - Continue beta-latricia for afib (6) DVT prophylaxis: Heparin 5000 units SQ BID Admission and Anticipated Discharge Date Admission Date: July 20, 2019 Subjective Doing very well today. More limber and able to speak more fluidly and easily. Reports no fevers/chills, chest pain, shortness of breath, abdominal pain, nausea, or vomiting. Physical Exam Constitutional: WD/WN, vitals as above Eyes: EOM intact bilaterally; no conjunctival abnormality ENMT: external ear and nose normal, oropharynx normal Neck: trachea midline, no thyromegaly normal visual inspection Respiratory: normal respiratory effort, lungs clear to auscultation no respiratory distress Cardiovascular: RRR, no murmur, no edema Gastrointestinal (Abdomen): Inspection/Auscultation: abdomen normal to inspection; abdomen not distended Musculoskeletal: no cyanosis or clubbing, extremities motor strength 5/5 Skin: no rashes, warm and dry Neurologic: moves all extremities and awake Psychiatric: Orientation: alert, oriented to person and cooperative Results & Data Results & Data ([facility]) Vital Signs (Past 12 Hours) Vital Signs Temp Pulse Pulse Resp BP Pulse Ox 07/22/19 11:19 36.3 C L 74 19 106/71 93 07/22/19 08:00 69 07/22/19 07:01 36.5 C 68 16 101/51 L 91 07/22/19 04:04 36.8 C 107 H 14 130/80 90 PG Care Time/CCT Total # of Minutes Spent Total Time Spent with Patient: Total time spent is greater than 50% in coordination of care (as documented) at patient's floor/unit and/or counseling patient: Coding Level of Care Code 79088 Subseq Hosp Care Lvl 3 Diagnoses Atrial fibrillation/flutter I48.91; I48.92 Parkinsons disease G20 KRZYSZTOF (acute kidney injury) N17.9 Dysphagia R13.10 Hypertension I10 DVT prophylaxis Z29.9
[2019-07-23] MEDS: METOPROLOL SUCC 25MG EXT REL TAB PO SCH (06:03)
[2019-07-23 06:24] LABS: Hematocrit (blood only) 33.2 % (42-52); Hemoglobin 10.8 g/dL (14.0-18.0); Mean Corpuscular Hgb Conc 32.5 g/dL (32-36); Mean Corpuscular Volume 92.2 fL (80-100); Mean Platelet Volume 10.9 fL (7.4-10.4); Platelet Count 195 K/uL (130-400); RDW Coefficient of Variation 14.9 % (11.5-14.5); RDW Standard Deviation 50.9 fL (36.4-46.3); White Blood Count 8.58 K/uL (4.8-10.8)
[2019-07-23 06:59] LABS: BUN Creatinine Ratio 36.6 (10-20); Calcium 8.2 mg/dl (8.5-10.1); Creatinine Clr Calc Pharmacy 37.3 ml/min; Est GFR (African American) 46.7; Est GFR (Non-African American) 40.3; Magnesium 2.6 mg/dl (1.8-2.4); Potassium 3.7 mmol/L (3.5-5.1)
[2019-07-23] MEDS: MEMANTINE HCL 5 MG TAB PO SCH (08:51)
[2019-07-23] MEDS: AMIODARONE 200 MG TAB PO SCH (08:51)
[2019-07-23] MEDS: CARBIDOPA/LEVODOPA 25/100MG TAB PO SCH ×2 (08:51→13:13)
[2019-07-23] MEDS: PANTOprazole 40 MG TAB PO SCH (08:52)
[2019-07-23] MEDS: HEPARIN SOD 5,000 UNIT/0.5 ML VIAL SQ SCH (08:53)
[2019-07-23] MEDS: CHOLECALCIFEROL 1,000 UNITS 25 MCG TAB PO SCH (13:12)
[2019-07-23] MEDS: CYANOCOBALAMIN 500 MCG TABLET (VITAMIN B-12) PO SCH (13:12)
[2019-07-23] MEDS: ASPIRIN 81 MG ECTAB PO SCH (13:12)
[2019-07-23] MEDS: VENLAFAXINE HCL XR 150 MG CAPXR PO SCH (13:13)
[2019-07-23] MEDS: FOLIC ACID 1 MG TAB PO SCH (13:13)
--- NOTE | 2019-07-23 16:29 | Discharge Summary ---
Date of Service July 23, 2019 Admission HPI Per Admitting Provider Patient is a pleasant 88 year old male with PMHx Parkinsons disease, HTN, GERD, Urinary Urgency, and depression who presented with chief complaint of generalized weakness since Thursday. The patient notes that his memory is poor and he has been having difficulty "answering questions" which makes him feel tense. History provided is from the patient, his son Shadi, and ED documentation. Patient notes that he had been noticing increasing weakness for close to 6 months now, but that more recently on Thursday he has been having more difficulty getting around. His son states that the patient typically ambulates around, but has not been doing so as much since Thursday. This morning he notes that the patient appeared more lethargic than usual and was again increasingly anxious. His son states that he was concerned his father may have a UTI as he has had them in the past and has reacted similarly. Speaking with the patient now, patient notes that other than feeling tense from inability to answer questions appropriately, he is not noting any discomfort. He notes that he could not tell he was in Aflutter and did not experience any chest pain, palpitations, SOB, headaches, dizziness. Principal Diagnosis Atrial fibrillation and atrial flutter Discharge Exam Constitutional WD/WN, vitals as above Eyes EOM intact bilaterally; no conjunctival abnormality ENMT external ear and nose normal, oropharynx normal Neck trachea midline, no thyromegaly normal visual inspection Respiratory normal respiratory effort, lungs clear to auscultation no respiratory distress Cardiovascular RRR, no murmur, no edema Gastrointestinal (Abdomen) Inspection/Auscultation: abdomen normal to inspection; abdomen not distended Musculoskeletal no cyanosis or clubbing, extremities motor strength 5/5 Skin no rashes, warm and dry Neurologic moves all extremities and awake Psychiatric Orientation: alert, oriented to person and cooperative Discharge Data Allergies Allergy/AdvReac Type Severity Reaction Status Date / Time Penicillins AdvReac Mild "STRANGE Verified 07/19/19 19:31 REACTION" Consultations 07/19/19 20:52 ED Decision to Admit Stat 07/20/19 01:50 Consult Cardiology Routine Consult Neurology Routine Ordered Studies 07/20/19 13:42 MR brain wo con Routine Hospital Course (1) Atrial fibrillation/flutter: Paroxysmal atrial fibrillation & flutter. Rates up to 150, then drops into sinus in the 60s. Chads-Vasc is 3, giving him a 3% annual risk of stroke. However, family (discussed on the phone with multiple sons) feel that 3% is an acceptable risk per year and that he poses too big a fall risk. Patient is in agreement and declines. - Appreciate cardiology recommendations. - Switched over to normal sinus on 07/20 with only 1 short run of afib on 07/21. - Discharged on oral amiodarone. - Also on beta-latricia for rate control (2) Parkinsons disease: Follows with Dr. Costello. Brain MRI on 07/19 was negative for stroke. - Continue Carbidopa/Levodopa 25/100mg x2 QID - Stop donepezil per neurology recs; started Namenda 5 mg PO BID. - Son, Shadi, reports he does seem like he was weaker after his AM meds, so possibly donepezil playing a role. (3) KRZYSZTOF (acute kidney injury): Baseline Cr is ~1.5, eGFR 40. CKD Stage III. - On presentation, Cr up to 2.1, likely pre-renal. - Hold HCTZ; now back to baseline by 07/20. (4) Dysphagia: Seen by [facility] RESIDENT with concern for aspiration. - Now on minced and moist diet -> Doing well with it. Tolerating well. - Discharge recs: * Alternate solids and liquids * Crush medications * Supervise meals * Fully alert and upright for eating * Give meds in a carrier * Single bites / small sips / slow rate * NO straws (5) Hypertension: Presently normotensive. BP 106/70. - Hold HCTZ for dehydration concern. - Continue beta-latricia for afib (6) DVT prophylaxis: Heparin 5000 units SQ BID Total Time Total Time Spent Total Time Spent (In Minutes): 35 Discharge Plan Discharge Items Patient Disposition: Transfer Inpatient Rehab Fac Reason For Visit: WEAKNESS, A FLUTTER Discharge Diagnosis: Atrial fibrillation & flutter, general weakness Activity: Resume your previous activity Non-emergency contact: Primary Care Provider, Pheresis Specialist and Neurologist Call non-emergency contact if: your symptoms worsen Follow-up/Referrals: Jatin Segura MD [Physician] - (Please see Dr. Segura in 2-3 weeks for follow up on your atrial fibrillation.) Pankaj Costello MD [Physician] - (Please see Dr. Costello in 2-3 weeks regarding medication changes for Parkinsonism.) Manisha Pedersen MD [Primary Care Provider] - Diet: Heart Healthy Addtl Attending Provider Instructions: Mr. Marinelli was admitted to the hospital for weakness. This may be been due to 2 things: 1) New-onset atrial flutter/fibrillation (going between both) and medication reaction to donepezil. In the hospital, he was seen by neurology and cardiology. Cardiology started him on amiodarone, and he returned to normal sinus rhythm. He and the family decided against anticoagulation for concern for falls. Neurology stopped donepezil and started him on memantine for his memory issues as it has less cardiovascular side effects. Overall, he improved significantly with these changes and was ready for discharge. Pending Studies at Discharge: No Stand-Alone Forms: My [facility] Skilled Items Patient informed of condition?: Yes DNR: Yes Discharge Level of Care: Acute rehab Communicable Disease: No Discharge Prognosis: Improving Lines: None Urinary Catheter: No Medications and DC Order Prescriptions: New amiodarone 200 mg Tablet 200 mg PO BIDM Qty: 60 RF: 0 metoprolol succinate 25 mg Tablet Extended Release 24 Hr 25 mg PO DAILY@0500 Qty: 30 RF: 0 memantine [Namenda] 5 mg Tablet 5 mg PO BID Qty: 60 RF: 0 Continued venlafaxine 150 mg capsule,extended release 24hr 150 mg PO DAILY@1300 Qty: 90 RF: 1 carbidopa-levodopa 25-100 mg tablet 2 tab PO QID 30 Days Qty: 240 RF: 5 trospium 60 mg capsule,extended release 24hr 60 mg PO DAILY Qty: 90 RF: 1 nitroglycerin 0.4 mg tablet, sublingual 0.4 mg SL Q5M PRN (Reason: chest pain) RF: 0 cholecalciferol (vitamin D3) 1,000 unit capsule 1,000 units PO DAILY@1300 RF: 0 aspirin 81 mg tablet,delayed release (DR/EC) 81 mg PO DAILY@1300 RF: 0 folic acid 1 mg tablet 1 mg PO DAILY@1300 Qty: 30 RF: 0 cyanocobalamin (vitamin B-12) 1,000 mcg tablet 1,000 mcg PO DAILY@1300 Qty: 30 RF: 0 omeprazole 20 mg capsule,delayed release(DR/EC) 20 mg PO DAILY RF: 0 Changed polyethylene glycol 3350 [Miralax] 17 gram/dose powder 17 gm PO DAILY Qty: 119 RF: 0 Discontinued donepezil 5 mg tablet 5 mg PO QAM 30 Days Qty: 30 RF: 5 hydrochlorothiazide 12.5 mg tablet 12.5 mg PO QAM Qty: 30 RF: 5 ciprofloxacin HCl [Cipro] 500 mg tablet 500 mg PO BID Qty: 14 RF: 0 Discharge Orders: Discharge Order (Routine); Ordered 07/23/19 Ordered By: Rich Park Admission Data Admit Date/Time: 07/20/19 01:16 Attending Provider: Rich Park Admit Provider: Sanjiv Madera Primary Care Provider: Manisha Pedersen Other Providers: [place] ; [facility] ; Sanjiv Madera ; Jatin Segura ; Pankaj Costello Other Interventions: Discharge Summary Assessment (RN) Last Done: 07/23/19 12:50 DC Date/Time DO NOT enter until pt leaves facility: 07/23/19 15:58 Coding Level of Care Code D/C Day Management >30 mins Diagnoses Atrial fibrillation/flutter I48.91; I48.92 Parkinsons disease G20 KRZYSZTOF (acute kidney injury) N17.9 Dysphagia R13.10 Hypertension I10 DVT prophylaxis Z29.9
== END 2019-07-23 15:58 | DRG 309 ==
LOC: ED 17:35 → 2S 07-20 01:14 → SUATTDRO 07-20 01:16 → 2S 07-20 01:16 → 2W 07-22 17:21 → UNDODISIN 07-23 12:53

== ENCOUNTER 2019-08-04 12:54 | Inpatient (IN) ==
--- NOTE | 2019-08-04 13:09 | Emergency Department Note ---
Impression & Plan Hypoxia, Multifocal pneumonia, Sepsis ED Provider Note NAME: JOSE GIANG AGE: 88 SEX: M : 1930 ARRIVES VIA: Ambulance INFORMANT: Patient ED PROVIDER(S): Eriberto Claire DO CHIEF COMPLAINT: Hypoxia HPI: Patient is an 88-year-old male with a past medical history of pneumonia and dementia who appears to have sent been sent to [facility] for rehab. Patient is on IV Rocephin. EMS was called as he was eating and he became short of breath. There was a concern for a facial droop and some garbled speech although the garbled speech is old. Stroke alert was initiated. Patient was also hypoxic at 72% on his normal 2 L nasal cannula. He was placed on nonrebreather. He does have a cough. Denies any belly pain or weakness or numbness in his arms or legs. No change in vision. No headaches. ROS: See above HPI for pertinent positives & negatives. A total of 10 systems reviewed and were otherwise negative. PAST MEDICAL HISTORY:Hypertension PAST SURGICAL HISTORY:See Below FAMILY HISTORY:See Below SOCIAL HISTORY:See Below HOME MEDICATIONS:See Below ALLERGIES:See Below VITALS:See Below PHYSICAL EXAMINATION: GENERAL: Sitting up in bed, alert, ill-appearing on a nonrebreather EYE EXAM: normal conjunctiva. PERRL and EOM's grossly intact. OROPHARYNX: no exudate, no erythema, lips, buccal mucosa, and tongue normal and mucous membranes are dry NECK: supple, no nuchal rigidity, no adenopathy, non-tender LUNGS: Clear to auscultation. Normal chest wall mechanics HEART: no murmurs, S1 normal and S2 normal ABDOMEN: abdomen soft, non-tender, normo-active bowel sounds, no masses, no rebound or guarding. BACK: Back is symmetrical on inspection and there is no deformity, no midline tenderness, no CVA tenderness. SKIN: no rashes and no bruising UPPER EXTREMITIES: upper extremities are grossly normal. LOWER EXTREMITIES: No pitting edema. NEURO EXAM: Normal sensorium, cranial nerves II-XII intact, normal speech, no weakness of arms, no weakness of legs. No drift. Finger to nose intact. Gross sensation intact. MEDICAL DECISION MAKING: Patient is an 88-year-old male who presents the ER with a past medical history of A. fib and pneumonia for shortness of breath. He was at [facility] and became short of breath. EMS was called. They noted that he may have a facial droop and some slurred speech consequently a stroke alert was called. Upon arrival to the ER this gentleman was found to be hypoxic and was on a n onrebreather at 15 L. His neurologic exam was completely intact. There is no focal deficit. Based on his history has he was eating and started to have trouble swallowing and was found to be hypoxic I did not feel this was consistent with a stroke. He was moved into B1. IVs were established. He is a DNR/DNI. Labs show a leukocytosis of 15,000 and anemia 9.7. INR 1.3. BMP with creatinine 1.45 LFTs bilirubin were unremarkable. Troponin was negative. UA was clean. COVID negative. CT head was negative. Chest x-ray shows multifocal pneumonia. He was covered with IV cefepime and vancomycin. He was updated bedside. He was placed on BiPAP. Discussed with son who is agreeable that this gentleman's wishes would be to be a DNR/DNI. Discussed with hospitalist for admission. Triage Nursing notes reviewed. Prior medical records reviewed Vital Signs: reviewed and remarkable for hypoxic Differential diagnosis: Differential diagnosis includes etiologies such as sepsis, UTI, pneumonia, metabolic, electrolyte abnormalities, cardiac sources, intracerebral event, toxicologic, neurological, as well as others were entertained. ER treatment provided: See below Diagnostics interpreted by me: ECG: Sinus rhythm rate of 72 Normal axis Septal Q waves No PVCs Nonspecific ST changes in the lateral leads Cardiac Monitoring: An order was placed for continuous cardiac monitoring. The monitor shows a rate of 65 with Sinus rhythm. Laboratory studies: As stated above and show below. Imaging studies: Chest x-ray shows multifocal pneumonia Consultation(s): Discussed with Dr. Adam Mcdonald ED COURSE: Procedures: none Critical Care: I have personally spent 45 minutes of critical care time in the direct management of this patient. This includes bedside care, interpretation of diagnostic studies, and testing, discussion with consultants, patient, and family members, and other required patient management activities. This 45 minutes is in excess of all separately billable procedures. Past Med/Surg History Medical History Abnormal EKG (Acute) Allergic rhinitis (Acute) Anemia (Acute) Anemia of chronic disease (Acute) Angina (Chronic 08/29/12) Arteriosclerosis of coronary artery (Acute) Hodgson's esophagus (Acute) Constipation (Chronic) Constipation (Acute) Depression (Acute) Dizziness, nonspecific (Acute) Elevated serum homocysteine level (Acute) Encounter for long-term (current) use of medications (Acute) Episodic mood disorder (Acute) Fall (Acute) Festinating gait (Acute) Foot drop, right (Acute) Foot pain, left (Acute) Gait disturbance (Acute) Gastroesophageal reflux disease (Acute) H/O hydrocele Hammer toe (Acute) Hearing loss (Acute) Hyperkeratosis (Acute) Hyperlipidemia (Acute 08/29/12) Hyperlipidemia (Chronic) Hypertension (Chronic) Incontinence (Acute) Insomnia (Acute) Lumbar spondylosis (Acute) Malignant neoplasm of prostate (Chronic) Memory loss (Acute) Mitral insufficiency (Acute) Muscle weakness (generalized) (Acute) Neoplasm of uncertain behavior of skin (Acute) Orthostatic hypotension (Acute) Orthostatic hypotension (Acute) Parkinsonism (Chronic 08/29/12) Parkinsons disease (Chronic) Pre-ulcerative calluses (Acute) Severe recurrent depression with psychosis (Acute) Tremor (Acute) Urinary incontinence (Chronic) Urinary symptom or sign (Acute) Urinary urgency (Acute) 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) Vitamin D deficiency (Chronic) Weakness generalized (Acute) Surgical History H/O colonoscopy with polypectomy H/O prostatectomy History of tonsillectomy S/P repair of hydrocele Family History Grandmother (Paternal) Colorectal cancer Uncle Colorectal cancer Father , early 80s of heart issues. Congestive heart failure Cardiac disorder Hypertension Myocardial infarction Mother , age 99 of uncertain causes No problems noted. 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 Feels Safe at Home: Yes Smoking Status: Former smoker Tobacco Type: cigarettes ; Hx Alcohol Use: Yes Alcohol type: beer Alcohol Intake Frequency: Holidays/Special Occasions Hx Substance Use: No Seatbelt Use: always Allergies Allergies Allergy/AdvReac Type Severity Reaction Status Date / Time Penicillins AdvReac Mild "STRANGE Verified 08/04/19 14:37 REACTION" Home Meds Home Medications Medication Instructions Recorded Confirmed aspirin 81 mg tablet,delayed 81 mg PO DAILY@1300 tab 08/09/18 08/04/19 release cyanocobalamin (vitamin B-12) 1,000 mcg PO DAILY@1300 #30 tab 08/09/18 08/04/19 1,000 mcg tablet folic acid 1 mg tablet 1 mg PO DAILY@1300 #30 tab 08/09/18 08/04/19 nitroglycerin 0.4 mg sublingual 0.4 mg SL Q5M PRN tab 12/31/18 08/04/19 tablet cholecalciferol (vitamin D3) 25 1,000 units PO DAILY@1300 01/04/19 08/04/19 mcg (1,000 unit) capsule omeprazole 20 mg PO DAILY 07/19/19 08/04/19 docusate sodium 100 mg PO BID 08/04/19 08/04/19 pantoprazole 40 mg PO DAILY 08/04/19 08/04/19 Previous Rx's Medication Instructions Recorded venlafaxine 150 mg 150 mg PO DAILY@1300 #90 cap 04/13/19 capsule,extended release 24 hr carbidopa 25 mg-levodopa 100 mg 2 tab PO QID 30 Days #240 tab 06/07/19 tablet trospium 60 mg capsule,extended 60 mg PO DAILY #90 cap 06/28/19 release 24 hr amiodarone 200 mg PO BIDM #60 tab 07/23/19 memantine [Namenda] 5 mg PO BID #60 tab 07/23/19 metoprolol succinate 25 mg PO DAILY@0500 #30 tab 07/23/19 polyethylene glycol 3350 [Miralax] 17 gm PO DAILY #119 gm 07/23/19 Results & Data (ED) Vital Signs Vital Signs - 24 hr 08/04/19 13:01 08/04/19 13:05 08/04/19 13:10 Temperature 37.0 C Temperature Source Oral Pulse Rate 75 86 80 Pulse Rate [Apical] Pulse Rate from SpO2 Sensor 72 Pulse Rhythm [Apical] Pulse Strength [Apical] Respiratory Rate 27 H 34 H 32 H Respiratory Effort / Characteristics Respiratory Depth Respiratory Pattern Blood Pressure 134/70 134/70 Blood Pressure [Right Arm] Blood Pressure Mean 64 91 89 Blood Pressure Mean [Right Arm] Blood Pressure Position [Right Arm] Pulse Oximetry 83 L 92 84 L Oxygen Delivery Method Non-rebreather Non-rebreather Non-rebreather Oxygen Flow Rate 10 10 10 Fraction of Inspired Oxygen SaO2/FiO2 Ratio Sepsis Recent Fever Within 48 Hours No Sepsis New/Unexplained Change in Mental Status No Sepsis Action Taken by Nursing No Action Required Oxygen Flow Rate - Titration Pulse Oximetry Post Tiitration 08/04/19 13:25 08/04/19 13:27 08/04/19 13:30 Temperature Temperature Source Pulse Rate 78 93 H Pulse Rate [Apical] Pulse Rate from SpO2 Sensor 78 90 Pulse Rhythm [Apical] Pulse Strength [Apical] Respiratory Rate 30 H 26 H Respiratory Effort / Characteristics Respiratory Depth Respiratory Pattern Blood Pressure 122/78 145/90 H Blood Pressure [Right Arm] Blood Pressure Mean 104 107 Blood Pressure Mean [Right Arm] Blood Pressure Position [Right Arm] Pulse Oximetry 92 79 L 94 Oxygen Delivery Method Non-rebreather Non-rebreather Non-rebreather Oxygen Flow Rate 10 10 15 Fraction of Inspired Oxygen SaO2/FiO2 Ratio Sepsis Recent Fever Within 48 Hours Sepsis New/Unexplained Change in Mental Status Sepsis Action Taken by Nursing Oxygen Flow Rate - Titration Pulse Oximetry Post Tiitration 08/04/19 13:31 08/04/19 13:40 08/04/19 13:45 Temperature Temperature Source Pulse Rate 93 H 75 Pulse Rate [Apical] Pulse Rate from SpO2 Sensor 91 H 74 Pulse Rhythm [Apical] Pulse Strength [Apical] Respiratory Rate 23 31 H Respiratory Effort / Characteristics Respiratory Depth Respiratory Pattern Blood Pressure 151/102 H Blood Pressure [Right Arm] Blood Pressure Mean 128 Blood Pressure Mean [Right Arm] Blood Pressure Position [Right Arm] Pulse Oximetry 95 80 L 93 Oxygen Delivery Method Non-rebreather Non-rebreather Non-rebreather Oxygen Flow Rate 15 10 15 Fraction of Inspired Oxygen SaO2/FiO2 Ratio Sepsis Recent Fever Within 48 Hours Sepsis New/Unexplained Change in Mental Status Sepsis Action Taken by Nursing Oxygen Flow Rate - Titration 15 Pulse Oximetry Post Tiitration 93 08/04/19 14:01 08/04/19 14:04 08/04/19 14:21 Temperature Temperature Source Pulse Rate 78 78 62 Pulse Rate [Apical] Pulse Rate from SpO2 Sensor 67 62 Pulse Rhythm [Apical] Pulse Strength [Apical] Respiratory Rate 28 H 32 H 20 Respiratory Effort / Characteristics Spontaneous Respiratory Depth Respiratory Pattern Blood Pressure 147/92 H 148/69 H Blood Pressure [Right Arm] Blood Pressure Mean 104 105 Blood Pressure Mean [Right Arm] Blood Pressure Position [Right Arm] Pulse Oximetry 100 100 100 Oxygen Delivery Method BiPAP BiPAP Oxygen Flow Rate Fraction of Inspired Oxygen 75 SaO2/FiO2 Ratio Sepsis Recent Fever Within 48 Hours Sepsis New/Unexplained Change in Mental Status Sepsis Action Taken by Nursing Oxygen Flow Rate - Titration Pulse Oximetry Post Tiitration 08/04/19 14:30 08/04/19 14:45 08/04/19 15:08 Temperature Temperature Source Pulse Rate 61 59 L Pulse Rate [Apical] 62 Pulse Rate from SpO2 Sensor 61 59 L Pulse Rhythm [Apical] Regular Pulse Strength [Apical] Normal Respiratory Rate 23 26 H 28 H Respiratory Effort / Characteristics Non-Labored Spontaneous Respiratory Depth Normal Respiratory Pattern Regular Blood Pressure 132/76 140/72 Blood Pressure [Right Arm] 145/81 H Blood Pressure Mean 89 89 Blood Pressure Mean [Right Arm] 102 Blood Pressure Position [Right Arm] Sitting Pulse Oximetry 100 100 98 Oxygen Delivery Method BiPAP BiPAP BiPAP Oxygen Flow Rate Fraction of Inspired Oxygen 75 SaO2/FiO2 Ratio 130 Sepsis Recent Fever Within 48 Hours Sepsis New/Unexplained Change in Mental Status Sepsis Action Taken by Nursing Oxygen Flow Rate - Titration Pulse Oximetry Post Tiitration Laboratory Data Result diagrams: 08/04/19 12:58 08/04/19 12:58 Lab Results 08/04/19 08/04/19 08/04/19 Range/Units 12:58 12:58 12:58 WBC 15.79 H (4.8-10.8) K/uL RBC 3.29 L (4.7-6.1) M/uL Hgb 9.7 L (14.0-18.0) g/dL Hct 31.7 L (42-52) % MCV 96.4 (80-100) fL MCH 29.5 (25-34) pg MCHC 30.6 L (32-36) g/dL RDW Std Deviation 53.0 H (36.4-46.3) fL RDW Coeff of Nicki 15.1 H (11.5-14.5) % Plt Count 391 (130-400) K/uL MPV 9.8 (7.4-10.4) fL Immature Gran % (Auto) 0.3 % Neut % (Auto) 90.6 % Lymph % (Auto) 2.4 % Frontier % (Auto) 6.5 % Eos % (Auto) 0.1 % Baso % (Auto) 0.1 % Immature Gran # (Auto) 0.04 H (0.00-0.02) K/uL Neut # (Auto) 14.31 H (1.4-6.5) K/uL Lymph # (Auto) 0.38 L (1.2-3.4) K/uL Frontier # (Auto) 1.03 H (0.11-0.59) K/uL Eos # (Auto) 0.01 (0-0.5) K/uL Baso # (Auto) 0.02 (0-0.2) K/uL PT 13.8 H (9.0-12.0) Seconds INR 1.3 H (0.9-1.1) APTT 28.9 (21.0-31.0) Seconds PTT Ratio 1.0 Sodium 136 (136-145) mmol/L Potassium 4.3 (3.5-5.1) mmol/L Chloride 104 (98-107) mmol/L Carbon Dioxide 25 (21-32) mmol/L Anion Gap 8.0 (3-11) BUN 39 H (7-18) mg/dl Creatinine 1.45 H (0.6-1.4) mg/dl Est Cr Clr Drug Dosing 42.6 ml/min Est GFR ( Amer) 49.8 Est GFR (Non-Af Amer) 43.0 BUN/Creatinine Ratio 26.6 H (10-20) Glucose 169 H (70-99) mg/dl Calcium 8.6 (8.5-10.1) mg/dl Magnesium 2.4 (1.8-2.4) mg/dl Total Bilirubin 0.6 (0.2-1) mg/dl AST 21 (15-37) U/L ALT 16 (12-78) U/L Alkaline Phosphatase 78 (45-117) U/L Troponin I < 0.015 (0-0.045) ng/ml Total Protein 6.5 (6.4-8.2) gm/dl Albumin 2.4 L (3.4-5.0) gm/dl Globulin 4.1 H (2.5-4.0) gm/dl Albumin/Globulin Ratio 0.6 L (0.9-2) Urine Color Urine Appearance (Clear) Urine pH (4.5-7.5) Ur Specific [place] (1.000-1.030) Urine Protein (Negative) Urine Glucose (UA) (Negative) Urine Ketones (Negative) Urine Blood (Negative) Urine Nitrite (Negative) Urine Bilirubin (Negative) Urine Urobilinogen (Negative) Ur Leukocyte Esterase (Negative) Urine WBC (Auto) (0-5) /hpf Urine RBC (Auto) (0-4) /hpf U Hyaline Cast (Auto) (0-5) /lpf U Epithel Cells (Auto) (0-5) /lpf Urine Bacteria (Auto) (Negative) COVID-19 PCR (Negative) 08/04/19 08/04/19 Range/Units 13:42 13:44 WBC (4.8-10.8) K/uL RBC (4.7-6.1) M/uL Hgb (14.0-18.0) g/dL Hct (42-52) % MCV (80-100) fL MCH (25-34) pg MCHC (32-36) g/dL RDW Std Deviation (36.4-46.3) fL RDW Coeff of Nicki (11.5-14.5) % Plt Count (130-400) K/uL MPV (7.4-10.4) fL Immature Gran % (Auto) % Neut % (Auto) % Lymph % (Auto) % Frontier % (Auto) % Eos % (Auto) % Baso % (Auto) % Immature Gran # (Auto) (0.00-0.02) K/uL Neut # (Auto) (1.4-6.5) K/uL Lymph # (Auto) (1.2-3.4) K/uL Frontier # (Auto) (0.11-0.59) K/uL Eos # (Auto) (0-0.5) K/uL Baso # (Auto) (0-0.2) K/uL PT (9.0-12.0) Seconds INR (0.9-1.1) APTT (21.0-31.0) Seconds PTT Ratio Sodium (136-145) mmol/L Potassium (3.5-5.1) mmol/L Chloride (98-107) mmol/L Carbon Dioxide (21-32) mmol/L Anion Gap (3-11) BUN (7-18) mg/dl Creatinine (0.6-1.4) mg/dl Est Cr Clr Drug Dosing ml/min Est GFR ( Amer) Est GFR (Non-Af Amer) BUN/Creatinine Ratio (10-20) Glucose (70-99) mg/dl Calcium (8.5-10.1) mg/dl Magnesium (1.8-2.4) mg/dl Total Bilirubin (0.2-1) mg/dl AST (15-37) U/L ALT (12-78) U/L Alkaline Phosphatase (45-117) U/L Troponin I (0-0.045) ng/ml Total Protein (6.4-8.2) gm/dl Albumin (3.4-5.0) gm/dl Globulin (2.5-4.0) gm/dl Albumin/Globulin Ratio (0.9-2) Urine Color Dark Yellow Urine Appearance Clear (Clear) Urine pH 5.0 (4.5-7.5) Ur Specific [place] 1.029 (1.000-1.030) Urine Protein 2+ H (Negative) Urine Glucose (UA) Negative (Negative) Urine Ketones Trace H (Negative) Urine Blood Negative (Negative) Urine Nitrite Negative (Negative) Urine Bilirubin Negative (Negative) Urine Urobilinogen Negative (Negative) Ur Leukocyte Esterase Negative (Negative) Urine WBC (Auto) 1-5 (0-5) /hpf Urine RBC (Auto) 0-4 (0-4) /hpf U Hyaline Cast (Auto) 0 (0-5) /lpf U Epithel Cells (Auto) 0-5 (0-5) /lpf Urine Bacteria (Auto) Negative (Negative) COVID-19 PCR NEGATIVE (Negative) Administered Medications Amiodarone HCl (Cordarone) 200 mg PO BIDM SANTIAGO Stop: 09/03/19 16:59 Last Admin: 08/04/19 17:31 Dose: Not Given Documented by: [id number] Carbidopa/Levodopa (Sinemet 25/100 Mg) 2 tab PO QID SANTIAGO Stop: 09/03/19 16:59 Last Admin: 08/04/19 17:31 Dose: Not Given Documented by: [id number] Azithromycin 500 mg/ Dextrose 255 mls @ 125 mls/hr IV ONE ONE Stop: 08/04/19 20:32 Last Admin: 08/04/19 18:44 Dose: 125 mls/hr Documented by: [id number] Discontinued Medications Cefepime HCl 1,000 mg/ Syringe 11.3 mls @ 5.5 mls/min IV NOW STA; Protocol Stop: 08/04/19 14:01 Last Admin: 08/04/19 14:12 Dose: 5.5 mls/min Documented by: [id number] Vancomycin HCl 2,250 mg/ (Sodium Chloride) 545 mls @ 200 mls/hr IV NOW ONE Stop: 08/04/19 16:42 Last Infusion: 08/04/19 17:30 Dose: 0 mls/hr Documented by: [id number] Admin: 08/04/19 14:13 Dose: 200 mls/hr Documented by: [id number] Discharge Plan Visit Data *Final* Discharge Date/Time: 08/04/19 16:14 Chief Complaint: Respiratory Problems Stated Complaint: stroke alert ED Provider: Eriberto Claire Discharge Problem: Hypoxia, Multifocal pneumonia, Sepsis Patient Disposition: Admitted As Inpatient Discharge Instructions Interventions: ED Discharge Assessment Last Done: 08/04/19 16:14 Discharge Problem: Sepsis Qualifiers: Sepsis type: sepsis due to unspecified organism Sepsis acute organ dysfunction status: unspecified Qualified Code(s): A41.9 - Sepsis, unspecified organism
--- NOTE | 2019-08-04 13:20 | XRay Report ---
XR chest 1V portable CLINICAL HISTORY: Stroke COMPARISON STUDY: None FINDINGS: The heart is mildly enlarged. There are extensive bilateral mixed interstitial and alveolar pulmonary opacities of indeterminate age. There is no failure. There are no large pleural effusions. [ IMPRESSION: 1. Extensive bilateral pulmonary airspace opacities. These are age-indeterminate. Clinical correlatio n in regards to any known chronic interstitial lung disease is advocated. ACT 112: Negative or not required by law. Electronically signed by: Jorge Sierra M.D. 08/04/2019 1:19 PM
[2019-08-04 13:23] LABS: Basophils # (auto) 0.02 K/uL (0-0.2); Basophils % (auto) 0.1 %; Eosinophils # (auto) 0.01 K/uL (0-0.5); Eosinophils % (auto) 0.1 %; Hematocrit (blood only) 31.7 % (42-52); Hemoglobin 9.7 g/dL (14.0-18.0); Immature Granulocytes # (auto) 0.04 K/uL (0.00-0.02); Immature Granulocytes % (auto) 0.3 %; Lymphocytes # (auto) 0.38 K/uL (1.2-3.4); Lymphocytes % (auto) 2.4 %; Mean Corpuscular Hemoglobin 29.5 pg (25-34); Mean Corpuscular Hgb Conc 30.6 g/dL (32-36); Mean Corpuscular Volume 96.4 fL (80-100); Mean Platelet Volume 9.8 fL (7.4-10.4); Monocytes # (auto) 1.03 K/uL (0.11-0.59); Monocytes % (auto) 6.5 %; Neutrophils # (auto) 14.31 K/uL (1.4-6.5); Neutrophils % (auto) 90.6 %; Platelet Count 391 K/uL (130-400); RDW Coefficient of Variation 15.1 % (11.5-14.5); Red Blood Count 3.29 M/uL (4.7-6.1); White Blood Count 15.79 K/uL (4.8-10.8)
[2019-08-04 13:33] LABS: INR 1.3 (0.9-1.1); Partial Thromboplastin Time 28.9 Seconds (21.0-31.0); Prothrombin Time 13.8 Seconds (9.0-12.0)
--- NOTE | 2019-08-04 13:36 | CT Scan Report ---
HEAD CT NONCONTRAST CT DOSE: 1228.53 mGy.cm HISTORY: Stroke symptoms. Stroke evaluation TECHNIQUE: Multiaxial CT images of the head were performed without the use of intravenous contrast. A utomated exposure control was utilized for this study. A dose lowering technique was utilized adheri ng to the principles of ALARA. Comparison: None. Findings: Partial opacification of the right frontal sinus. The mastoid air cells are clear. The calv arium and skull base are intact. There is no mass, hematoma, midline shift, acute infarct. White carlie er hypodensity is nonspecific but suggestive of microvascular ischemic change. The ventricles and sul ci demonstrate mild age-related involutional changes. Old punctate lacunar infarct seen within the ri ght caudate head. Impression: No acute intracranial abnormality. Atrophy and microvascular ischemic changes. Partial opacification of the right frontal sinus. ACT 112: Negative or not required by law. Electronically signed by: Musa Meléndez M.D. 08/04/2019 1:35 PM
[2019-08-04 13:40] LABS: Alanine Aminotransferase 16 U/L (12-78); Albumin Level 2.4 gm/dl (3.4-5.0); Aspartate Aminotransferase 21 U/L (15-37); BUN Creatinine Ratio 26.6 (10-20); Blood Urea Nitrogen 39 mg/dl (7-18); Calcium 8.6 mg/dl (8.5-10.1); Carbon Dioxide 25 mmol/L (21-32); Chloride 104 mmol/L (98-107); Creatinine Clr Calc Pharmacy 42.6 ml/min; Est GFR (African American) 49.8; Glucose 169 mg/dl (70-99); Magnesium 2.4 mg/dl (1.8-2.4); Potassium 4.3 mmol/L (3.5-5.1); Sodium 136 mmol/L (136-145)
[2019-08-04 13:44] LABS: Albumin Globulin Ratio 0.6 (0.9-2); Alkaline Phosphatase 78 U/L (45-117); Bilirubin,Total 0.6 mg/dl (0.2-1); Globulin 4.1 gm/dl (2.5-4.0); Total Protein 6.5 gm/dl (6.4-8.2); Troponin I < 0.015 ng/ml (0-0.045)
[2019-08-04] MEDS ORDERED: VANCOMYCIN HCL 2,250 MG in SODIUM CHLORIDE 0.9% 500 ML IV ONE (13:59)
[2019-08-04] MEDS ORDERED: CEFEPIME 1,000 MG in SYRINGE 0 ML IV STA (13:59)
[2019-08-04] MEDS ORDERED: VANCOMYCIN CONSULT ACTIVE PRN (13:59)
[2019-08-04 14:35] LABS: Appearance Urine Clear (Clear); Bacteria Urine Automated Negative (Negative); Blood Urine Negative (Negative); Cast Urine Automated 0 /lpf (0-5); Color Urine Dark Yellow; Epithelial Cell Urine Auto 0-5 /lpf (0-5); Glucose Urine UA Negative (Negative); Ketones Urine Trace (Negative); Leukocyte Esterase Urine Negative (Negative); Nitrite Urine Negative (Negative); Protein Urine 2+ (Negative); RBC Urine Automated 0-4 /hpf (0-4); Specific Gravity Urine 1.029 (1.000-1.030); Urobilinogen Urine Negative (Negative)
[2019-08-04 14:44] LABS: Bilirubin Urine Negative (Negative); Ictotest Urine Negative (Negative)
--- NOTE | 2019-08-04 16:09 | History & Physical Report ---
Date of Service August 04, 2019 Assessment & Plan (1) Pneumonia: CXR on admission shows extensive bilateral pulmonary airspace opacities. Given WBC and hypoxemia, presuming pneumonia. Given history, aspiration a high concern; however, he has also been in health-care setting for an extended per [facility]. - Continue vanc/cefepime for HAP with good Gram(-) coverage for aspiration as well. - MRSA swab; hopefully can discontinue vanc quickly given his CKD - BiPap & DuoNebs PRN - Chest CT to better elucidate lung pathology - [facility] evaluation once stable. - Affirmed with family that he is DNR/DNI. He would not want intubation even if it meant passing away. Would focus on comfort if he declines despite BiPap. (2) Facial droop: Noted at [facility] today along with dysarthria. Certainly not a tPA candidate given the equivocal findings and unclear time frame. Does have risk for embolic disease given his prior episodes of afib/aflutter. - Continue ASA - Plan for brain MRI once respiratorily stable (3) Atrial fibrillation/flutter: Diagnosed with paroxysmal prior admission. At that time, determined that anticoagulation was a concern given the fall risk and was not started. Presently in normal sinus with rates in the 60s. - Continue amiodarone - Hold beta-latricia for now until we see how his heart rate and BP do. - No anticoagulation (4) Parkinsons disease: Long-standing. Sees Dr. Costello. In last admission, we adjusted his donepezil to memantine for possible orthostatic hypotension effects; however, it made only minimal difference. - Continue Sinemet QID - Continue memantine - Continue venlafaxine - Consider neurology consult if issues arise. (5) CKD (chronic kidney disease) stage 3, GFR 30-59 ml/min: Baseline Cr ~1.4-4.5, eGFR ~40. - At baseline on presentation. - Avoid nephrotoxins as able (will stop vanc as soon as possible.) - Monitor Cr (6) Hypertension: BP presently 140/70 in the ED. - Hold beta-latricia for now. (7) DVT prophylaxis: SCDs - Low DVT risk per admission calculator History of Present Illness Primary Care Provider: Manisha Pedersen MD 88yo M w/ hx of Parkinson's disease & atrial fibrillation who presents for pneumonia and concern for a stroke. Per family, he has been at [facility] and has had minimal improvement in his physical status. His mental status had improved (he was mildly delirious on discharge on 07/22). Per son, he was hypoxemic when he arrived at [facility] and was put in 2L NC immediately. He had a chest x-ray there on Thursday which showed a "pneumonitis" and was put on oral antibiotics. At [facility], there was some concern for aspiration as he was coughing and choking on food at times. He also lost his bottom plate denture and seems to have had more trouble with swallowing then too. From a physical standpoint, he was making mild progress, but still easily tired out and not walking as much. Today, there was concern for a stroke as he had slurred speech and concern for a facial droop. It is unclear to me when this started as there is no documentation from [facility] about when this was first noted. Tele-stroke services were involved at [facility] without any indication for tPA. On my interview this afternoon, he is barely able to complete sentences, but is able to answer yes/no to various questions. He denies all ROS. He denies any cough or shortness of breath. No pain in the chest, abdomen, or elsewhere. Allergies Allergy/AdvReac Type Severity Reaction Status Date / Time Penicillins AdvReac Mild "STRANGE Verified 08/04/19 14:37 REACTION" Home Medications Home Medications Medication Instructions Recorded Confirmed Type aspirin 81 mg tablet,delayed 81 mg PO DAILY@1300 tab 08/09/18 08/04/19 History release cyanocobalamin (vitamin B-12) 1,000 mcg PO DAILY@1300 #30 tab 08/09/18 08/04/19 History 1,000 mcg tablet folic acid 1 mg tablet 1 mg PO DAILY@1300 #30 tab 08/09/18 08/04/19 History nitroglycerin 0.4 mg sublingual 0.4 mg SL Q5M PRN tab 12/31/18 08/04/19 History tablet cholecalciferol (vitamin D3) 25 1,000 units PO DAILY@1300 01/04/19 08/04/19 History mcg (1,000 unit) capsule venlafaxine 150 mg 150 mg PO DAILY@1300 #90 cap 04/13/19 08/04/19 Rx capsule,extended release 24 hr carbidopa 25 mg-levodopa 100 mg 2 tab PO QID 30 Days #240 tab 06/07/19 08/04/19 Rx tablet trospium 60 mg capsule,extended 60 mg PO DAILY #90 cap 06/28/19 08/04/19 Rx release 24 hr omeprazole 20 mg PO DAILY 07/19/19 08/04/19 History amiodarone 200 mg PO BIDM #60 tab 07/23/19 08/04/19 Rx memantine [Namenda] 5 mg PO BID #60 tab 07/23/19 08/04/19 Rx metoprolol succinate 25 mg PO DAILY@0500 #30 tab 07/23/19 08/04/19 Rx polyethylene glycol 3350 [Miralax] 17 gm PO DAILY #119 gm 07/23/19 08/04/19 Rx docusate sodium 100 mg PO BID 08/04/19 08/04/19 History pantoprazole 40 mg PO DAILY 08/04/19 08/04/19 History Past Med/Surg History Medical History Abnormal EKG (Acute) Allergic rhinitis (Acute) Anemia (Acute) Anemia of chronic disease (Acute) Angina (Chronic 08/29/12) Arteriosclerosis of coronary artery (Acute) Hodgson's esophagus (Acute) Constipation (Chronic) Constipation (Acute) Depression (Acute) Dizziness, nonspecific (Acute) Elevated serum homocysteine level (Acute) Encounter for long-term (current) use of medications (Acute) Episodic mood disorder (Acute) Fall (Acute) Festinating gait (Acute) Foot drop, right (Acute) Foot pain, left (Acute) Gait disturbance (Acute) Gastroesophageal reflux disease (Acute) H/O hydrocele Hammer toe (Acute) Hearing loss (Acute) Hyperkeratosis (Acute) Hyperlipidemia (Acute 08/29/12) Hyperlipidemia (Chronic) Hypertension (Chronic) Incontinence (Acute) Insomnia (Acute) Lumbar spondylosis (Acute) Malignant neoplasm of prostate (Chronic) Memory loss (Acute) Mitral insufficiency (Acute) Muscle weakness (generalized) (Acute) Neoplasm of uncertain behavior of skin (Acute) Orthostatic hypotension (Acute) Orthostatic hypotension (Acute) Parkinsonism (Chronic 08/29/12) Parkinsons disease (Chronic) Pre-ulcerative calluses (Acute) Severe recurrent depression with psychosis (Acute) Tremor (Acute) Urinary incontinence (Chronic) Urinary symptom or sign (Acute) Urinary urgency (Acute) 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) Vitamin D deficiency (Chronic) Weakness generalized (Acute) Surgical History H/O colonoscopy with polypectomy H/O prostatectomy History of tonsillectomy S/P repair of hydrocele Family History Grandmother (Paternal) Colorectal cancer Uncle Colorectal cancer Father , early 80s of heart issues. Congestive heart failure Cardiac disorder Hypertension Myocardial infarction Mother , age 99 of uncertain causes No problems noted. 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 Feels Safe at Home: Yes Smoking Status: Former smoker Tobacco Type: cigarettes ; Hx Alcohol Use: Yes Alcohol type: beer Alcohol Intake Frequency: Holidays/Special Occasions Hx Substance Use: No Seatbelt Use: always Review of Systems Review of Systems: All systems reviewed & are unremarkable except as noted in HPI & below Physical Exam Constitutional: WD/WN, vitals as above + acute distress Eyes: EOM intact bilaterally; no conjunctival abnormality ENMT: external ear and nose normal, oropharynx normal Neck: trachea midline, no thyromegaly normal visual inspection Respiratory: + respiratory distress, + labored breathing and + tachypneic Auscultation: + diminished lung sounds and + rhonchi; no wheezes Cardiovascular: RRR, no murmur, no edema Gastrointestinal (Abdomen): Inspection/Auscultation: abdomen normal to inspection; abdomen not distended Musculoskeletal: no cyanosis or clubbing, extremities motor strength 5/5 Skin: no rashes, warm and dry Neurologic: moves all extremities and awake Psychiatric: Orientation: alert, oriented to person and cooperative; + not oriented to place Results & Data Results & Data ([facility]) Vital Signs (Past 12 Hours) Vital Signs Temp Pulse Resp BP Pulse Ox 08/04/19 14:45 59 L 26 H 140/72 100 08/04/19 14:30 61 23 132/76 100 08/04/19 14:21 62 20 148/69 H 100 08/04/19 14:04 78 32 H 100 08/04/19 14:01 78 28 H 147/92 H 100 08/04/19 13:45 75 31 H 151/102 H 93 08/04/19 13:40 80 L 08/04/19 13:31 93 H 23 95 08/04/19 13:30 93 H 26 H 145/90 H 94 08/04/19 13:27 78 30 H 122/78 79 L 08/04/19 13:25 92 08/04/19 13:10 80 32 H 134/70 84 L 08/04/19 13:05 37.0 C 86 34 H 134/70 92 08/04/19 13:01 75 27 H 83 L PG Care Time/CCT Total # of Minutes Spent Total Time Spent with Patient: Total time spent is greater than 50% in coordination of care (as documented) at patient's floor/unit and/or counseling patient: Coding Level of Care Code 90780 Initial Inpt Care Lvl 3 Diagnoses Pneumonia J18.9 Facial droop R29.810 Atrial fibrillation/flutter I48.91; I48.92 Parkinsons disease G20 CKD (chronic kidney disease) stage 3, GFR 30-59 ml/min N18.3 Hypertension I10 DVT prophylaxis Z29.9
[2019-08-04] MEDS ORDERED: ACETAMINOPHEN 325 MG TAB PO PRN (16:42)
[2019-08-04] MEDS ORDERED: ALBUT/IPRATROP 3MG/0.5MG NEB 3 ML VIAL NEB PRN (16:42)
[2019-08-04] MEDS ORDERED: ONDANSETRON INJ 2 MG/ML 2 ML VIAL IV PRN (16:42)
--- NOTE | 2019-08-04 17:20 | Pharmacy Report ---
Pharmacy Abx Initial Consult - Date of Service August 04, 2019 - Pharmacy Dosing Scope Date of Consult: 08/04/2019 Consultation requested by: Dr. Park Pharmacy is consulted to initiate Vancomycin IV dosing therapy, order appropriate labs and adjust drug dose/frequency. - Subjective The patient is a 88 year old M admitted on 08/04/19 15:41. - Objective Height: 6 ft Weight: 85 kg Vital Signs (Past 12hrs): Vital Signs Temp Pulse Pulse Resp BP BP Pulse Ox 08/04/19 16:47 36.4 C L 66 18 151/80 H 92 08/04/19 16:06 61 28 H 148/98 H 97 08/04/19 15:08 62 28 H 145/81 H 98 08/04/19 14:45 59 L 26 H 140/72 100 08/04/19 14:30 61 23 132/76 100 08/04/19 14:21 62 20 148/69 H 100 08/04/19 14:04 78 32 H 100 08/04/19 14:01 78 28 H 147/92 H 100 08/04/19 13:45 75 31 H 151/102 H 93 08/04/19 13:40 80 L 08/04/19 13:31 93 H 23 95 08/04/19 13:30 93 H 26 H 145/90 H 94 08/04/19 13:27 78 30 H 122/78 79 L 08/04/19 13:25 92 08/04/19 13:10 80 32 H 134/70 84 L 08/04/19 13:05 37.0 C 86 34 H 134/70 92 08/04/19 13:01 75 27 H 83 L Lab Results (24hrs): Laboratory Tests (24 Hours) 08/04/19 08/04/19 12:58 12:58 WBC 15.79 H Neut # (Auto) 14.31 H Creatinine 1.45 H Est Cr Clr Drug Dosing 42.6 - Risk Factors for Resistance * Resident in a group home or extended-care facility: [facility] * Hospitalization for 48 hours or more within the past 90 days: 07/19-07/22 x weakness * Antimicrobial use within the last 90 days: Ciprofloxacin, Levofloxacin - Assessment & Plan Assessment 88 year old M admitted from [facility] secondary to hypoxia * According to patient's son, he was hypoxemic on arrival to [facility] and was put on 2L NC. He underwent a chest x-ray there on 07/28 which showed a "pneumonitis" and was put on oral antibiotics. There was also concern for aspiration per staff as he was coughing and choking on food at times. * Chest x-ray upon admission showed "extensive bilateral pulmonary airspace opacities" * Patient is afebrile. Leukocytosis of 15,800. Renal function appears to be near baseline (SCr 1.3-1.5). * There is concern for aspiration but will currently be treated with Vancomycin and Cefepime for HAP Plan Vancomycin and Cefepime for treatment of HAP Vancomycin IV * Patient meets criteria for vancomycin AUC dosing nomogram * AUC/DAINA is the preferred PK/PD target for vancomycin * Target AUC/DAINA = 400-600 * AUC guided dosing is effective and associated with decreased risk of nephrotoxicity * Will order a trough prior to the fourth maintenance dose to ensure Target AUC/DAINA is reached Cefepime (Not a Pharmacy consult) * 2 g IV every 12 hours is appropriate per indication and renal function Pharmacy will continue to follow and will adjust dose/frequency as necessary. Thank you.
[2019-08-04] MEDS: AMIODARONE 200 MG TAB PO SCH (17:31)
[2019-08-04] MEDS: CARBIDOPA/LEVODOPA 25/100MG TAB PO SCH ×2 (17:31→20:33)
[2019-08-04 17:55] LABS: Allen Test Pos (Pos); Base Excess ABG 0.1 mEq/L (-9-1.8); HCO3 ABG 24 mmol/L (19-24); Oxygen Saturation ABG 89.1 % (90-95); PCO2 ABG 34 mmHg (35-46); PO2 ABG 61 mmHg (80-95); pH ABG 7.47 (7.35-7.45)
--- NOTE | 2019-08-04 17:57 | CT Scan Report ---
CT OF THE CHEST WITHOUT IV CONTRAST CLINICAL HISTORY: Pneumonia. COMPARISON STUDY: Chest radiograph July 19, 2019 and August 04, 2019. CT DOSE: 618.42 mGy.cm TECHNIQUE: Axial images of the chest were obtained without IV contrast. Images were reviewed in the axial, sagittal, and coronal planes. IV contrast was not administered for this examination. Automat ed exposure control was utilized for the study. A dose lowering technique was utilized adhering to t he principles of ALARA. FINDINGS: There is no pneumothorax. Small to moderate right and small left pleural effusions are not ed. There is mild cardiomegaly and moderate coronary artery calcification. There is no pericardial ef fusion. No enlarged axillary, mediastinal or hilar lymph nodes are present. Lungs are suboptimally as sessed given respiratory motion. There are extensive groundglass opacities with multifocal consolidat ion throughout the lungs. Bony thorax is unremarkable. Multiple hypodense hepatic lesions within visu alized portions of the liver are suboptimally assessed on this unenhanced exam but favor cysts. IMPRESSION: 1. Extensive groundglass opacity with multifocal consolidation within the bilateral lungs. The findin gs favor pneumonia. Pulmonary edema could appear similar but is considered less likely. 2. Small to moderate right and small left pleural effusions. 3. Mild cardiomegaly. Moderate coronary artery calcification. ACT 112: Negative or not required by law. Electronically signed by: Myron Fraga M.D. 08/04/2019 5:56 PM
[2019-08-04] MEDS ORDERED: AZITHROMYCIN 500 MG in DEXTROSE 5% 250 ML IV ONE (18:30)
[2019-08-04 22:37] LABS: Adenovirus PCR Not Detected (NotDetected); Bordetella parapertussis PCR Not Detected (NotDetected); Bordetella pertussis PCR Not Detected (NotDetected); Chlamydia pneumoniae PCR Not Detected (NotDetected); Coronavirus 229E PCR Not Detected (NotDetected); Coronavirus HKU1 PCR Not Detected (NotDetected); Coronavirus NL63 PCR Not Detected (NotDetected); Coronavirus OC43PCR Not Detected (NotDetected); Human Metapneumovirus PCR Not Detected (NotDetected); Influenza A PCR Not Detected (NotDetected); Influenza B PCR Not Detected (NotDetected); Mycoplasma pneumoniae PCR Not Detected (NotDetected); Parainfluenza Virus 1 PCR Not Detected (NotDetected); Parainfluenza Virus 2 PCR Not Detected (NotDetected); Parainfluenza Virus 3 PCR Not Detected (NotDetected); Parainfluenza Virus 4 PCR Not Detected (NotDetected); Respiratory Syncytial VirusPCR Not Detected (NotDetected); Rhinovirus/Enterovirus PCR Not Detected (NotDetected)
[2019-08-04] MEDS ORDERED: ACETAMINOPHEN 1000 MG/100 ML IV IV PRN (23:35)
--- NOTE | 2019-08-04 23:35 | Electrocardiogram Report ---
Test Reason : Blood Pressure : / mmHG Vent. Rate : 072 BPM Atrial Rate : 072 BPM P-R Int : 186 ms QRS Dur : 106 ms QT Int : 448 ms P-R-T Axes : 035 000 023 degrees QTc Int : 490 ms Normal sinus rhythm with sinus arrhythmia Incomplete left bundle block Prolonged QT Abnormal ECG No previous ECGs available Confirmed by Flakito Metzger ([id number]) on 08/04/2019 11:35:48 PM Referred By: Confirmed By:Flakito Metzger
[2019-08-05] MEDS ORDERED: VANCOMYCIN HCL 750 MG in SODIUM CHLORIDE 0.9% 250 ML IV SCH (02:00)
[2019-08-05] MEDS: CEFEPIME 2,000 MG in SYRINGE 7.5 ML IV SCH ×2 (02:10→14:16)
[2019-08-05 06:24] LABS: Hematocrit (blood only) 31.4 % (42-52); Hemoglobin 9.6 g/dL (14.0-18.0); Mean Corpuscular Hemoglobin 29.2 pg (25-34); Mean Corpuscular Hgb Conc 30.6 g/dL (32-36); Mean Corpuscular Volume 95.4 fL (80-100); Mean Platelet Volume 9.7 fL (7.4-10.4); Platelet Count 351 K/uL (130-400); RDW Standard Deviation 52.5 fL (36.4-46.3); Red Blood Count 3.29 M/uL (4.7-6.1); White Blood Count 14.68 K/uL (4.8-10.8)
[2019-08-05 06:53] LABS: BUN Creatinine Ratio 26.9 (10-20); Calcium 8.6 mg/dl (8.5-10.1); Creatinine Clr Calc Pharmacy 42.3 ml/min; Est GFR (African American) 54.3; Est GFR (Non-African American) 46.9; Magnesium 2.4 mg/dl (1.8-2.4); Phosphorus 3.9 mg/dl (2.5-4.9)
[2019-08-05] MEDS ORDERED: POLYETHYLENE (MIRALAX) 17 GM PACK PO SCH (09:00)
[2019-08-05] MEDS: AMIODARONE 200 MG TAB PO SCH ×2 (11:18→16:31)
[2019-08-05] MEDS: CARBIDOPA/LEVODOPA 25/100MG TAB PO SCH ×3 (11:19→16:32)
--- NOTE | 2019-08-05 11:50 | Hospitalist Progress Note ---
Date of Service August 05, 2019 Assessment & Plan (1) Pneumonia: CXR on admission shows extensive bilateral pulmonary airspace opacities. Given WBC and hypoxemia, presuming pneumonia. Given history, aspiration a high concern; however, he has also been in health-care setting for an extended per iod. - Continue cefepime & azithromycin for HAP with good Gram(-) coverage for aspiration as well as atypicals. - Stopped vancomycin on 08/04 for negative MRSA swab. - BiPap & DuoNebs PRN - [facility] evaluation once stable. - Presently stable, though he needed to go back on BiPap after a short time off. Breathing ~26/min on my evaluation, but no muscle retractions or indication of discomfort. (2) Facial droop: Noted at [facility] the day of presentation along with dysarthria. Certainly not a tPA candidate given the equivocal findings and unclear time frame. Does have risk for embolic disease given his prior episodes of afib/aflutter. - Continue ASA - Plan for brain MRI once respiratorily stable -> Still not today. (3) Atrial fibrillation/flutter: Diagnosed with paroxysmal prior admission. At that time, determined that anticoagulation was a concern given the fall risk and was not started. Was in sinus on admission, but now in afib. - Hold amiodarone & beta-latricia for NPO. - No anticoagulation - Rates stable in afib; will use beta-latricia IV PRN for HR > 110. If HR becomes very variable (as it did last admission), may need to restart amiodarone gtt. (4) Parkinsons disease: Long-standing. Sees Dr. Costello. In last admission, we adjusted his donepezil to memantine for possible orthostatic hypotension effects; however, it made only minimal difference. - Continue Sinemet QID, memantine, and venlafaxine as able - Consider neurology consult if issues arise. (5) CKD (chronic kidney disease) stage 3, GFR 30-59 ml/min: Baseline Cr ~1.4-4.5, eGFR ~40. - At baseline on presentation. - Avoid nephrotoxins as able - Monitor Cr -> Presently 1.35 (6) Hypertension: BP presently 140/70 in the ED. - Hold beta-latricia for now. (7) DVT prophylaxis: SCDs - Low DVT risk per admission calculator Admission and Anticipated Discharge Date Admission Date: August 04, 2019 Subjective Fatigued this morning; again denies shortness of breath or cough. Reports no fevers/chills, chest pain, shortness of breath, abdominal pain, nausea, or vomiting. Physical Exam Constitutional: WD/WN, vitals as above + acute distress Eyes: EOM intact bilaterally; no conjunctival abnormality ENMT: external ear and nose normal, oropharynx normal Neck: trachea midline, no thyromegaly normal visual inspection Respiratory: + respiratory distress, + labored breathing and + tachypneic Auscultation: + diminished lung sounds and + rhonchi; no wheezes Cardiovascular: RRR, no murmur, no edema Gastrointestinal (Abdomen): Inspection/Auscultation: abdomen normal to inspection; abdomen not distended Musculoskeletal: no cyanosis or clubbing, extremities motor strength 5/5 Skin: no rashes, warm and dry Neurologic: moves all extremities and awake Psychiatric: Orientation: alert, oriented to person and cooperative; + not oriented to place Results & Data Results & Data ([facility]) Vital Signs (Past 12 Hours) Vital Signs Temp Pulse Pulse Pulse Resp BP Pulse Ox 08/05/19 07:52 37.2 C 98 H 19 124/65 92 08/05/19 03:47 36.9 C 57 L 17 116/66 96 08/05/19 03:15 65 24 98 PG Care Time/CCT Total # of Minutes Spent Total Time Spent with Patient: Total time spent is greater than 50% in coordination of care (as documented) at patient's floor/unit and/or counseling patient: Coding Level of Care Code 54536 Subseq Hosp Care Lvl 3 Diagnoses Pneumonia J18.9 Facial droop R29.810 Atrial fibrillation/flutter I48.91; I48.92 Parkinsons disease G20 CKD (chronic kidney disease) stage 3, GFR 30-59 ml/min N18.3 Hypertension I10 DVT prophylaxis Z29.9
[2019-08-05] MEDS ORDERED: METOPROLOL TARTRATE 1 MG/ML VIAL IV PRN (11:51)
[2019-08-05] MEDS ORDERED: ASPIRIN 81 MG ECTAB PO SCH (13:00)
[2019-08-05] MEDS ORDERED: VENLAFAXINE HCL XR 150 MG CAPXR PO SCH (13:00)
[2019-08-05] MEDS ORDERED: AZITHROMYCIN 250 MG in DEXTROSE 5% 250 ML IV SCH (18:00)
[2019-08-05] MEDS ORDERED: MoRPHine SULFATE 2 MG/ML CARP IV PRN (19:11)
[2019-08-05] MEDS ORDERED: LORazepam 0.5 MG/1 ML VIAL IV PRN (19:11)
[2019-08-05] MEDS ORDERED: ATROPINE SULFATE 1% OP SOLN 5 ML BTL SL PRN (19:11)
--- NOTE | 2019-08-05 23:39 | Electrocardiogram Report ---
Test Reason : Blood Pressure : / mmHG Vent. Rate : 059 BPM Atrial Rate : 059 BPM P-R Int : 186 ms QRS Dur : 104 ms QT Int : 504 ms P-R-T Axes : 050 006 023 degrees QTc Int : 498 ms Sinus bradycardia Prolonged QT Abnormal ECG When compared with ECG of 20-JUL-2019 01:23, Nonspecific T wave abnormality no longer evident in Lateral leads QT has lengthened Confirmed by Flakito Metzger ([id number]) on 08/05/2019 11:38:40 PM Referred By: REFERRED SELF Confirmed By:Flakito Metzger
--- NOTE | 2019-08-06 00:53 | Communication Note ---
Date of Service: August 06, 2019 Paged by RN at 0037 regarding passing of pt. Pt examined and noted: no spontaneous breathing, no HR, no response to painful stimuli, pupils fixed and dilated. Attending notified. Family already made aware as they were bedside at time of . certificate filled and handed in to RN. Resident Activity Tracking Resident Involvement: Resident Care Provided Care Provided: Adult Hospital Medicine
--- NOTE | 2019-08-06 07:59 | Billing Data ---
Date of Service August 06, 2019 Coding Level of Care Code 77357 Prolonged Care (int'l) Comment In the patient's room from 9:00am to 9:10am and 6:40pm - 7:10pm.
--- NOTE | 2019-08-06 08:02 | Death Pronouncement Note ---
Date of Service August 06, 2019 Pronouncement Note Admission Date Admission Date: August 04, 2019 Date and Time of Date of : 08/06/19 Time of : 00:22 PCOD Preliminary cause of : Pneumonia Contributing Factors (1) Pneumonia: (2) Facial droop: (3) Atrial fibrillation/flutter: (4) Parkinsons disease: (5) CKD (chronic kidney disease) stage 3, GFR 30-59 ml/min: (6) Hypertension: (7) DVT prophylaxis: Additional Data Confirmation of : no pulse, no respirations, no heart sounds and pupils fixed and dilated Family: at bedside Attending/PCP notified?: Yes Attending physician: Rich Park MD Was code activated?: No Autopsy requested?: No train examiner notified?: No Organ bank notified?: No Advance directives: Yes Coding Level of Care Code None Diagnoses Pneumonia J18.9 Facial droop R29.810 Atrial fibrillation/flutter I48.91; I48.92 Parkinsons disease G20 CKD (chronic kidney disease) stage 3, GFR 30-59 ml/min N18.3 Hypertension I10 DVT prophylaxis Z29.9 Comment I was not present for his and did not examine him on August 06, 2019.
--- NOTE | 2019-08-06 08:04 | Discharge Summary ---
Date of Service August 06, 2019 Admission HPI Per Admitting Provider 88yo M w/ hx of Parkinson's disease & atrial fibrillation who presents for pneumonia and concern for a stroke. Per family, he has been at [facility] and has had minimal improvement in his physical status. His mental status had improved (he was mildly delirious on discharge on 07/22). Per son, he was hypoxemic when he arrived at [facility] and was put in 2L NC immediately. He had a chest x-ray there on Thursday which showed a "pneumonitis" and was put on oral antibiotics. At [facility], there was some concern for aspiration as he was coughing and choking on food at times. He also lost his bottom plate denture and seems to have had more trouble with swallowing then too. From a physical standpoint, he was making mild progress, but still easily tired out and not walking as much. Today, there was concern for a stroke as he had slurred speech and concern for a facial droop. It is unclear to me when this started as there is no documentation from [facility] about when this was first noted. Tele-stroke services were i nvolved at [facility] without any indication for tPA. On my interview this afternoon, he is barely able to complete sentences, but is able to answer yes/no to various questions. He denies all ROS. He denies any cough or shortness of breath. No pain in the chest, abdomen, or elsewhere. Principal Diagnosis Pneumonia Discharge Exam Per resident's communication note: no spontaneous breathing, no HR, no response to painful stimuli, pupils fixed and dilated. I was not present for his and did not examine him on August 06, 2019. Discharge Data Allergies Allergy/AdvReac Type Severity Reaction Status Date / Time Penicillins AdvReac Mild "STRANGE Verified 08/04/19 14:37 REACTION" Consultations 08/04/19 14:25 ED Decision to Admit Stat Ordered Studies 08/04/19 12:51 CT head/brain wo con Stat 08/04/19 15:41 CT chest wo con Urgent Hospital Course (1) Pneumonia: CXR on admission shows extensive bilateral pulmonary airspace opacities. Given WBC and hypoxemia, presuming pneumonia. Given history, aspiration a high concern; however, he has also been in health-care setting for an extended period. - Continue cefepime & azithromycin for HAP with good Gram(-) coverage for aspiration as well as atypicals. - Stopped vancomycin on 08/04 for negative MRSA swab. - BiPap & DuoNebs PRN - [employer] evaluation once stable. - Made comfort care. Took off BiPap after family arrived. at 00:22. I was n ot present for his and did not examine him on August 06, 2019. (2) Facial droop: Noted at [facility] the day of presentation along with dysarthria. Certheidy inly not a tPA candidate given the equivocal findings and unclear time frame. Does have risk for embolic disease given his prior episodes of afib/aflutter. - Continue ASA - Plan for brain MRI once respiratorily stable -> Still not today. (3) Atrial fibrillation/flutter: Diagnosed with paroxysmal prior admission. At that time, determined that anticoagulation was a concern given the fall risk and was not started. Was in sinus on admission, but now in afib. - Hold amiodarone & beta-latricia for NPO. - No anticoagulation - Rates stable in afib; will use beta-latricia IV PRN for HR > 110. If HR becomes very variable (as it did last admission), may need to restart amiodarone gtt. (4) Parkinsons disease: Long-standing. Sees Dr. Costello. In last admission, we adjusted his donepezil to memantine for possible orthostatic hypotension effects; however, it made only minimal difference. - Continue Sinemet QID, memantine, and venlafaxine as able - Consider neurology consult if issues arise. (5) CKD (chronic kidney disease) stage 3, GFR 30-59 ml/min: Baseline Cr ~1.4-4.5, eGFR ~40. - At baseline on presentation. - Avoid nephrotoxins as able - Monitor Cr -> Presently 1.35 (6) Hypertension: BP presently 140/70 in the ED. - Hold beta-latricia for now. (7) DVT prophylaxis: SCDs - Low DVT risk per admission calculator Total Time Total Time Spent Total Time Spent (In Minutes): 0 Discharge Plan Discharge Items Patient Disposition: Reason For Visit: PNEUMONIA,CONCERN FOR CVA Follow-up/Referrals: Manisha Pedersen MD [Primary Care Provider] - Stand-Alone Forms: My [facility] Admission Data Admit Date/Time: 08/04/19 15:41 Other DC Date/Time DO NOT enter until pt leaves facility: 08/06/19 01:28 Coding Level of Care Code None Diagnoses Pneumonia J18.9 Facial droop R29.810 Atrial fibrillation/flutter I48.91; I48.92 Parkinsons disease G20 CKD (chronic kidney disease) stage 3, GFR 30-59 ml/min N18.3 Hypertension I10 DVT prophylaxis Z29.9
[2019-08-06] MEDS ORDERED: VANCOMYCIN TROUGH ONE (13:30)
== END 2019-08-06 01:28 | disposition expired | DRG 194 ==
LOC: ED 12:54 → MERGE 12:54 → 2S 15:41 → 2W 08-05 21:03